=== PATIENT | female | born 1950 | race Hispanic/Latino ===

== ENCOUNTER 2023-12-27 16:16 | Inpatient (IN) | payer OTHER, MEDICAID, MEDICARE, SELFPAY ==
[2023-12-27] VITALS (8 sets, daily range): BP systolic 101–159; BP diastolic 54–76; PULSE 68–88; RESP 16–22; TEMP 37–39.4; O2SAT 93–98
--- NOTE | 2023-12-27 16:59 | EKG_ITS ---
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: : 1950 Requested By: Gloria Cole ([facility]) Marques Order Number: [id number] Reading MD: Gloria Cole ([facility]) Marques Measurements Intervals [place] Rate: 79 P: 50 GA: 160 QRS: -56 QRSD: 109 T: -31 QT: 389 QTc: 448 Interpretive Statements SINUS RHYTHM POSSIBLE LEFT ATRIAL ENLARGEMENT [-0.1mV P WAVE IN V1/V2] PATTERN CONSISTENT WITH PULMONARY DISEASE INCOMPLETE RIGHT BUNDLE BRANCH BLOCK [90+ ms QRS DURATION, TERMINAL R IN V1/V2, 40+ ms S IN I/aVL/V4/V5/V6] LEFT ANTERIOR FASCICULAR BLOCK [QRS AXIS <= -45, QR IN I, RS IN II] MINIMAL ST DEPRESSION [0.025+ mV ST DEPRESSION] Compared to ECG 04/13/2023 18:55:05 Incomplete right bundle-branch block now present ST (T wave) deviation now present Sinus tachycardia no longer present T-wave abnormality no longer present /store/S0/[id number]/ecg/[id number].pdf
--- NOTE | 2023-12-27 16:59 | XR_ITS ---
Examination: AP chest single view Technique: AP portable sitting chest single view Exam date and time: December 27, 2023 1730 hrs. Indications: Sepsis today. Findings: Mild heart failure Moderate enlargement cardiac contour Prominent vascular congestion Subtle opacity at the lung bases consider early edema versus pneumonia Impression: Mild heart failure Subtle opacity at the lung bases, consider pulmonary edema versus early pneumonia
--- NOTE | 2023-12-27 17:02 | PD.EDRME ---
Rapid Medical Screening Exam RME Arrival date/time: 12/27/23 16:16 73-year-old female presents to the emergency department with complaints of altered mental status for 1 hour fever. I have greeted and performed a focused initial assessment of this patient. Initial appropriate labs ordered at this time. A comprehensive ED assessment and evaluation of the patient and analysis of all test and completion of medical decision making process will be conducted by additional ED provider. Chief Complaint: Neuro Symptoms/Deficit Time Seen by Provider: 12/27/23 16:44 Vital signs: Vital Signs Temperature 103.0 F H 12/27/23 16:52 Pulse Rate 80 12/27/23 16:52 Respiratory Rate 16 12/27/23 16:52 Blood Pressure 159/72 H 12/27/23 16:52 Pulse Oximetry (%) 93 L 12/27/23 16:52 Oxygen Delivery Method Room Air 12/27/23 16:52
[2023-12-27] MEDS: ACETAMINOPHEN 500 MG TABLET 1000 MG PO (17:10)
[2023-12-27 17:26] LABS: Lactate (Lactic Acid) 1.2 mMol/L (0.4-2.0)
[2023-12-27 17:29] LABS: Basophils % (Auto) 0 % (0-2.5); Eosinophils % (Auto) 0 % (0-10); Hematocrit 38.4 % (36.0-46.0); Hemoglobin 13.6 g/dL (12.0-16.0); Immature Granulocytes % (Auto) 1 % (0-0); Lymphocytes # (Auto) 0.8 Thou/mm3 (1.0-4.8); Lymphocytes % (Auto) 5 % (10-50); Mean Corpuscular HGB Conc 35.4 g/dl (31.0-37.0); Mean Corpuscular Hemoglobin 30.4 pg (25.0-35.0); Mean Corpuscular Volume 86 fL (80-100); Monocytes # (Auto) 1.7 Thou/mm3 (0.0-0.8); Monocytes % (Auto) 10 % (0-12); Neutrophils # (Auto) 13.4 Thou/mm3 (1.8-7.7); Neutrophils % (Auto) 84 % (37-80); Nucleated Red Blood Cell % 0 /100 WBC (0); Platelet Count 175 Thou/mm3 (140-440); RDW Standard Deviation 46.8 fL (36.4-46.3); Red Blood Count 4.47 Miln/mm3 (4.00-5.20)
[2023-12-27 18:20] LABS: B-Type Natriuretic Peptide 2395 pg/mL (0-100)
[2023-12-27 18:31] LABS: Alanine Aminotransferase 26 U/L (10-49); Albumin, Serum 4.4 gm/dL (3.4-4.8); Albumin/Globulin Ratio 1.3 (1.2-2.2); Alkaline Phosphatase 63 U/L (46-116); Anion Gap 9 (7-16); Aspartate Amino Transferase 68 U/L (0-34); BUN/Creatinine Ratio 23 Ratio (12-20); Bilirubin,Total 0.7 mg/dL (0.3-1.2); Blood Urea Nitrogen 62 mg/dL (9-23); Calcium 9.3 mg/dL (8.3-10.6); Calcium (Corrected) 9.3 mg/dL (8.5-10.1); Carbon Dioxide 22.2 mMol/L (20.0-31.0); Chloride 99 mMol/L (98-107); Creatinine (Component) 2.7 mg/dL (0.6-1.3); Globulin 3.4 gm/dL (2.3-3.5); Glucose 162 mg/dL (74-106); Lipase 28 U/L (12-53); Magnesium 2.2 mg/dL (1.6-2.6); Osmolality,Calculated 282 (275-295); Potassium 4.1 mMol/L (3.4-5.1); Procalcitonin 30.89 ng/ml (0.0-0.49); Sodium 130 mMol/L (136-145); Total Protein 7.8 gm/dL (5.7-8.2); eGFR 18 See Note
[2023-12-27 18:38] LABS: Troponin I 0.273 ng/mL (0.0-0.045)
[2023-12-27 18:40] LABS: Collection Type, Urine Clean Catch
[2023-12-27 18:47] LABS: INR 1.1 (0.9-1.3); Prothrombin Time 11.9 Seconds (9.0-12.2)
[2023-12-27 18:49] LABS: Bacteria,Urine 2+; Bilirubin,Urine Negative (Negative); Blood,Urine 2+ (Negative); Clarity,Urine Turbid (Clear/Hazy); Color,Urine Yellow (Lt Yel-Yel); Glucose, Urine 3+ (Negative); Hyaline Casts,Urine < 1 /hpf (0-1); Ketones,Urine Negative (Negative); Leukocyte Esterase,Urine Positive (Negative); Nitrite,Urine Negative (Negative); Protein,Urine 2+ (Neg - Trace); RBC,Urine 17 /hpf (0-3); Specific Gravity,Urine 1.015 (1.001-1.035); Squamous Epithelial Cell,Urine 1 /hpf (0-5); Urobilinogen,Urine Negative mg/dL (0.0-1.0); WBC,Urine 81 /hpf (0-5)
--- NOTE | 2023-12-27 19:52 | EDNOTE_ITS ---
ED Abdominal Pain RME/HPI General Chief Complaint: Neuro Symptoms/Deficit Stated complaint: ALTERED MENTAL STATUS Time seen by provider: 12/27/23 16:44 Arrival date/time: 12/27/23 16:16 Limitations: no limitations RME / HPI RME / HPI narrative: 12/27/23 16:16 73-year-old female presents to the emergency department with complaints of altered mental status for 1 hour fever. I have greeted and performed a focused initial assessment of this patient. Initial appropriate labs ordered at this time. A comprehensive ED assessment and evaluation of the patient and analysis of all test and completion of medical decision making process will be conducted by additional ED provider. DR. SERVIN MAIN ED EVALUATION: 73-year-old with past medical history significant for CVA, hypertension, diabetes and hyperlipidemia presents to the Emergency Department with complaint of generalized weakness when she was in the bathroom. She is complaining of dysuria x 1 day and subjective fever. The patient took Tylenol this morning for fever and it improved. Patient has no focal weakness or numbness. Related Data Home Medications ?Medication ?Instructions ?Recorded ?Confirmed clopidogrel 75 mg tablet 75 mg PO QDAY 04/13/23 12/27/23 empagliflozin 25 mg tablet 25 mg PO QDAY 04/13/23 12/27/23 (Jardiance) escitalopram oxalate 10 mg tablet 10 mg PO QDAY 04/13/23 12/27/23 hydroxyzine HCl 25 mg tablet 25 mg PO HS PRN Sleep 04/13/23 12/27/23 pravastatin 20 mg tablet 20 mg PO QDAY 04/13/23 12/27/23 sacubitril 24 mg-valsartan 26 mg 24 - 26 tab PO BID 06/01/23 12/27/23 tablet (Entresto) amlodipine 2.5 mg tablet 2.5 mg PO QDAY 12/27/23 12/27/23 carvedilol 25 mg tablet 25 mg PO BID 12/27/23 12/27/23 furosemide 80 mg tablet 80 mg PO QDAY 12/27/23 12/27/23 Allergies Allergy/AdvReac Type Severity Reaction Status Date / Time No Known Allergies Allergy Verified 05/31/23 16:02 Review of Systems Review of Systems Systems Reviewed: All systems reviewed, normal except as documented Narrative Review of Systems: GEN: + subjective fever, no chills, no weight loss EYES: No discharge, no visual changes, no pain HEENT: No ear pain, no congestion, no sore throat PULM: No shortness of breath, no cough, no congestion CV: No chest pain, no dyspnea on exertion, no palpitations GI: No nausea, no vomiting, no diarrhea, no pain, no constipation : No frequency, no urgency; + dysuria MUSC/SKEL: No joint pain, no back pain SKIN: No rash PSYCH: No hallucinations, no depression HEME/LYMPH: No easy bleeding or bruising tendencies NEURO: + generalized weakness, no headache Past Medical History Past Medical History CARDIAC: Positive Hypercholesterolemia and Hypertension RESPIRATORY: Positive Respiratory Disorders (family does not know name of issue) ENDOCRINE: Positive Diabetes Mellitus Type 2 Social History SMOKING STATUS: Never smoker SECOND HAND EXPOSURE: Yes SUBSTANCE USE: does not use ALCOHOL: Never ED Exam Narrative Physical exam: Patient sitting up in the bed. She is awake and talking in full sentences. General Limitations: Present no limitations General appearance: Present alert and cachectic; Absent lethargic or obtunded Head Head exam: Present atraumatic ENT ENT exam: Present normal exam, normal oropharynx and mucous membranes moist Neck Neck exam: Present other (No JVD) Chest Chest inspection: Present normal inspection and symmetric chest wall rise Respiratory Respiratory exam: Present other; Absent accessory muscle use Cardiovascular Cardiovascular exam: Present regular rate Abdominal Exam Abdominal exam: Present soft and normal bowel sounds Extremities Exam Extremities exam: Present normal inspection and full ROM Back Exam Back exam: Present normal inspection and full ROM Neurological Exam Neurological exam: Present alert, oriented X3, CN II-XII intact, normal gait, motor sensory deficit and other (No aphasia, no dysphagia, no facial droop) Psychiatric Psychiatric exam: Present normal affect and normal mood Skin Skin exam: Present warm, dry, intact and normal color Course Course Course Narrative: 1700: Sepsis alert initiated. Orders made at this time are congruent with ED Adult Sepsis Order List. Re-evaluation is to be completed. 1945: I saw the patient at this time, sepsis was called prior to my shift. 2009: Sepsis reassessment performed consisting of lab review, vitals, physical exam including auscultation of heart, lungs, and visual evaluation of capillary refills, mucosal membranes and extremities. Quality Measures none Orders Category Date Time Status Bedside Blood Glucose NOW Care 12/27/23 17:00 Active Bedside COVID-19 Antigen Test NOW Care 12/27/23 17:00 Completed Bedside COVID-19 Antigen Test NOW Care 12/27/23 20:10 Completed Bedside Influenza A&B Antigen Test NOW Care 12/27/23 17:00 Completed COVID-19 Screening Questionnaire NOW Care 12/27/23 20:07 Active Fiber Worker Q4H START 00 Care 12/27/23 17:00 Completed Decision to Admit X1 Care 12/27/23 20:07 Completed EKG (ED ONLY) *Do not use* NOW Care 12/27/23 16:59 Completed Insert IV NOW Care 12/27/23 17:00 Completed MRI Screening NOW Care 12/27/23 17:06 Completed Strict Intake and Output Routine Care 12/27/23 17:00 Ordered EKG (ED Only) Stat Exams 12/27/23 16:59 Draft XR chest 1V portable Stat Exams 12/27/23 16:59 Completed B-Type Natriuretic Peptide Stat Lab 12/27/23 17:14 Completed Blood Culture (Lab) Stat Lab 12/27/23 17:15 Results CBC Stat Lab 12/27/23 17:14 Completed COVID-19 Confirmatory PCR Stat Lab 12/27/23 20:24 Completed Comprehensive Metabolic Panel Stat Lab 12/27/23 17:14 Completed Lactate (Lactic Acid) Stat Lab 12/27/23 17:14 Completed Lipase Stat Lab 12/27/23 17:14 Completed Magnesium Stat Lab 12/27/23 17:14 Completed Procalcitonin Stat Lab 12/27/23 17:14 Completed Prothrombin Time with INR Stat Lab 12/27/23 17:14 Completed Troponin I Stat Lab 12/27/23 17:14 Completed Urinalysis Stat Lab 12/27/23 18:34 Completed Urine Culture Stat Lab 12/27/23 18:34 Received Acetaminophen Tab [Tylenol ES Tab] Med 12/27/23 17:00 Discontinued 1,000 mg PO X1 ONE Azithromycin Inj [Zithromax Inj] 500 mg Med 12/28/23 14:00 Discontinued Sodium Chloride 0.9% 250 ml [Ns] 250 ml IV QDAY@1400 Azithromycin Inj [Zithromax Inj] 500 mg Med 12/27/23 20:15 Discontinued Sodium Chloride 0.9% 250 ml [Ns] 250 ml IV X1 cefTRIAXone/D5w 1gm IV premix [Rocephin/D5w 1gm IV Med 12/27/23 20:03 Discontinued premix] 50 ml IV X1 Vital Signs Vital signs: Vital Signs Temperature 103.0 F H 12/27/23 16:52 Pulse Rate 80 12/27/23 16:52 Respiratory Rate 16 12/27/23 16:52 Blood Pressure 159/72 H 12/27/23 16:52 Pulse Oximetry (%) 93 L 12/27/23 16:52 Oxygen Delivery Method Room Air 12/27/23 16:52 Procedures -ED EKG Interpretation #1: Date of EK12/27/23 Time of EK:06 Rate: 79 Interpretation: Interpreted by me Additional EKG comment: Patient with incomplete right bundle branch block. Otherwise no ST elevations. Nonspecific ST-T wave 1 and aVL. QTc is 424. Impression nonspecific ST-T wave changes. Abdominal Pain MDM MDM Narrative MDM Narrative:: Hailey Bojorquez, am scribing for and in the presence of Dr. Servin. Patient data External records reviewed:: [facility] previous records (Last admission from 05/31/23 to 06/04/23 for shortness of breath, pleural effusion, ORA (acute kidney injury). ) Clinical information provided by:: family Social determinants that could affect healthcare access:: none Patient has the following chronic illnesses:: CVA, hypertension, diabetes and hyperlipidemia How is presenting disease/condition affected by chronic disease/condition?: exacerbated by Evaluation data The following diagnostics were reviewed and interpreted by me:: lab results, radiology exam(s) and EKG tracing(s) Lab and/or radiology exams considered but not ordered:: none Interpretation Summary: Patient has a elevated BMP and CHF on the x-ray. RADIOLOGY: Procedure(s): XR chest 1V portable Accession Number(s): [id number] cc: Walter Peck MD; REBEKAH EVANS Otilia M FNP~ Examination: AP chest single view Technique: AP portable sitting chest single view Exam date and time: December 27, 2023 1730 hrs. Indications: Sepsis today. Findings: Mild heart failure Moderate enlargement cardiac contour Prominent vascular congestion Subtle opacity at the lung bases consider early edema versus pneumonia Impression: Mild heart failure Subtle opacity at the lung bases, consider pulmonary edema versus early pneumonia Dictated By: Walter Peck MD Medications / Prescriptions Medications or Prescriptions considered but not ordered:: none Medication administrations:: Medication Administration History Acetaminophen (Acetaminophen 325 Mg Tablet) 650 mg PO Q6H PRN PRN Reason: Fever >101.5 Stop: 01/26/24 20:21 Last Admin: 12/28/23 21:11 Dose: 650 mg Documented By: Admin: 12/28/23 13:12 Dose: 650 mg Documented By: Admin: 12/28/23 04:10 Dose: 650 mg Documented By: Carvedilol (Carvedilol 12.5 Mg Tablet) 12.5 mg PO BIDWM [facility] Stop: 01/27/24 07:59 Last Admin: 12/28/23 16:49 Dose: 12.5 mg Documented By: Admin: 12/28/23 08:19 Dose: 12.5 mg Documented By: MGD Clopidogrel Bisulfate (Clopidogrel Bisulfate 75 Mg Tablet) 75 mg PO QDAY [facility] Stop: 01/27/24 08:59 Last Admin: 12/28/23 08:19 Dose: 75 mg Documented By: MGD Dextrose (Dextrose 50%-Water Inj 50 Ml Syringe) 25 ml IV Q15MIN PRN PRN Reason: BG 50-70 responsive npo pt Stop: 01/26/24 20:24 Dextrose (Dextrose 50%-Water Inj 50 Ml Syringe) 50 ml IV Q15MIN PRN PRN Reason: BG <50 OR BG <70 & pt unresponsive Stop: 01/26/24 20:24 Glucagon (Glucagon Inj 1 Mg Vial) 1 mg IM Q15MIN PRN PRN Reason: BG <70, and no IV access Heparin Sodium (Porcine) (Heparin Sod Inj 5000 Unit/Ml Vial) 5,000 unit SC Q8HR REED Stop: 01/10/24 21:59 Last Admin: 12/29/23 05:02 Dose: 5,000 unit Documented By: HERMES Co-signed By: JEREMÍAS Admin: 12/28/23 21:03 Dose: 5,000 unit Documented By: HERMES Co-signed By: WB Admin: 12/28/23 13:14 Dose: 5,000 unit Documented By: DEBBY Co-signed By: ER Admin: 12/28/23 05:14 Dose: 5,000 unit Documented By: ZENOBIA Co-signed By: LS Admin: 12/27/23 21:30 Dose: 5,000 unit Documented By: FLORA Co-signed By: SABAS Cefepime HCl 1 gm/ Sodium (Chloride) 50 mls @ 100 mls/hr IV DAILY REED Stop: 01/04/24 07:14 Last Admin: 12/28/23 07:48 Dose: 100 mls/hr Documented By: DEBBY Insulin Human Regular (Insulin Hum Regular 1 Unit/0.01 Ml (Per Unit)) 0 unit SC ACHS REED; Protocol Stop: 01/26/24 20:59 Last Admin: 12/28/23 21:04 Dose: 2 unit Documented By: HERMES Co-signed By: WB Admin: 12/28/23 16:51 Dose: 2 unit Documented By: DEBBY Co-signed By: VI Admin: 12/28/23 13:02 Dose: 1 unit Documented By: DEBBY Co-signed By: CHARMAINE Admin: 12/28/23 07:48 Dose: 1 unit Documented By: DEBBY Co-signed By: ER Admin: 12/27/23 21:28 Dose: 3 unit Documented By: FLORA Co-signed By: SABAS Pravastatin Sodium (Pravastatin Sodium 10 Mg Tablet) 10 mg PO HS REED Stop: 01/26/24 20:59 Last Admin: 12/28/23 21:03 Dose: 10 mg Documented By: Admin: 12/27/23 21:30 Dose: 10 mg Documented By: FLORA Discontinued Medications Acetaminophen (Acetaminophen 500 Mg Tablet) 1,000 mg PO X1 ONE Stop: 12/27/23 17:01 Last Admin: 12/27/23 17:10 Dose: 1,000 mg Documented By: ARMIDA Ceftriaxone Sodium/Dextrose (Rocephin/D5w 1gm Iv Premix) 50 mls @ 100 mls/hr IV X1 ONE Stop: 12/27/23 20:32 Last Infusion: 12/27/23 21:04 Dose: Infused Documented By: Admin: 12/27/23 20:33 Dose: 100 mls/hr Documented By: FLORA Azithromycin 500 mg/ Sodium (Chloride) 250 mls @ 250 mls/hr IV QDAY@1400 [facility] Stop: 01/03/24 13:59 Azithromycin 500 mg/ Sodium (Chloride) 250 mls @ 250 mls/hr IV X1 ONE Stop: 12/27/23 21:14 Last Infusion: 12/27/23 21:46 Dose: Infused Documented By: Admin: 12/27/23 20:44 Dose: 250 mls/hr Documented By: FLORA Sodium Chloride (Ns) 1,000 mls @ 50 mls/hr IV .Q20H [facility] Stop: 01/26/24 20:29 Last Admin: 12/27/23 20:45 Dose: 50 mls/hr Documented By: FLORA Ceftriaxone Sodium/Dextrose (Rocephin/D5w 1gm Iv Premix) 50 mls @ 100 mls/hr IV QDAY [facility] Stop: 01/04/24 08:59 Sodium Chloride (Ns) 500 mls @ 999 mls/hr IV .Q31M ONE Stop: 12/28/23 05:15 Last Admin: 12/28/23 04:50 Dose: 999 mls/hr Documented By: ZENOBIA see above Consultations Consultation(s) initiated? (list below): Yes Consultation #1 (Physician, Specialty, Details): Discussed test HPI, PMHx, lab, radiology results and/or management with hospitalist Dr. Morris. Patient has a elevated BMP and CHF on the x-ray. Will admit for further evaluation and management. Accepts patient for admission. Time: 20:15 Diagnosis Differential diagnosis abdominal pain: abdominal pain and other (sepsis, UTI) Most likely diagnosis given after review of the tests above:: CHF Sepsis Acute UTI Community acquired pneumonia Admission Indicated Admission indicated?: indicated Admission Request Was there a request for admission?: Yes Admission Attestation Admission request attestation: Discussed case with [] from Hospitalist service regarding admission. Discussed patients ED course, exam findings, labs, and radiology results. The Hospitalist [agrees,declines] to accept the patient for admission. Disposition Plan Disposition Plan: Admit Discharge Plan Plan Patient Disposition: Admit Acute Care w/in Hospital Patient condition on transfer: Stable Problem List Clinical Impression: Congestive heart failure, Sepsis, Acute UTI, Community acquired pneumonia
[2023-12-27] MEDS: cefTRIAXone/D5w 1gm IV premix 50 ML IV (20:33)
--- NOTE | 2023-12-27 20:40 | ESHP_ITS ---
Documentation for date of: 12/27/23 [facility] History of Present Illness History of present illness: Patient is a 73-year-old female, brought into the emergency department, due to complaints of confusion and generalized weakness for the past few hours, patient is accompanied by her daughter who stated that she has been more confused over the past 2 days and was found to have a fever today. The patient went to the restroom to urinate and family went in to check on her when she did not come out after an hour, patient was confused and answering yes to every question, as well as unable to get off the toilet seat by herself. At the time of evaluation the patient is alert and oriented, and states that she felt her thighs were weak that is why she could not get up. She does not have any memory of episode of confusion. Per daughter, the patient ambulates by herself and is alert and oriented at her baseline . The patient denied any dysuria, urinary retention, also denied urinary incontinence, but daughter noted that patient is wearing adult diapers recently. Patient denies any chest pain, shortness of breath or orthopnea, or excessive cough or phlegm production. Per daughter, patient says no to every question because she wants to not stay in the hospital, patient's current clinical condition was explained to her, recommended IV antibiotics for UTI and sepsis, patient verbalized understanding and was agreeable to hospital stay. Initial vitals in the ED showed Tmax 103F, pulse rate 80, RR respiratory rate 16, blood pressure 159/72, saturating 93% on room air. EKG showed incomplete RBBB, nonspecific ST-T wave changes in 1 aVL, sepsis alert was initiated in the ED, but IV fluids boluses were not given as patient has HFrEF ejection fraction 30-35% per previous echocardiogram, CBC showed leukocyt,osis, 16,000, CHEM panel showed worsening ORA, BUN 62, creatinine 2.7, EGFR 18, baseline creatinine seems to be around 1.9, mild troponin elevation 0.273, BNP 2395, procalcitonin 30.89, lactic acid 1.2 , urinalysis shows urine WBC 81, urine bacteria 2+, urine LE positive, chest x-ray showed mild heart failure and subtle opacity at lung bases consider pulmonary edema versus early pneumonia, started on IV antibiotics ceftriaxone, and azithromycin. Patient will be admitted to medical floor for further observation and management. Past Medical history: Cardiorenal syndrome CVA Primary hypertension Diabetes mellitus type 2 Hyperlipidemia Anxiety Insomnia Past surgical history: long time ago Allergies: Denies Social history: The patient lives in [place] with her son She used to smoke: 10 packs/year, she quit > 5 years ago Exam Vital Signs Temp Pulse Resp BP Pulse Ox O2 Del Method 99.7 F 70 22 H 148/76 H 95 Room Air 12/27/23 18:51 12/27/23 19:19 12/27/23 19:19 12/27/23 19:19 12/27/23 19:19 12/27/23 19:19 Narrative Exam General: AOx3, cooperative but forgetful. Skin: Intact, no cyanosis or edema noted. HEENT: Atraumatic/normocephalic, ANTOIN, neck supple. Heart: RRR, S1 and S2 without clicks or murmurs. Lungs: Basal crackles, currently asymptomatic on room air, saturating 93%. Abdomen: Soft, nontender. Bowel sounds present. Vascular: Peripheral pulses palpable. Neuro: No focal neurological deficits noted. Results: Labs 12/27/23 17:14 12/27/23 17:14 Labs: Short CBC 12/27/23 Range/Units 17:14 WBC 16.0 H (3.6-11.0) Thou/mm3 Hgb 13.6 (12.0-16.0) g/dL Hct 38.4 (36.0-46.0) % Plt Count 175 (140-440) Thou/mm3 BMP 12/27/23 17:14 Sodium 130 L Potassium 4.1 Chloride 99 Carbon Dioxide 22.2 BUN 62 H Creatinine 2.7 H Glucose 162 H Calcium 9.3 Cardiac Enzymes 12/27/23 Range/Units 17:14 Troponin I 0.273 H* (0.0-0.045) ng/mL Liver Function 12/27/23 Range/Units 17:14 Total Bilirubin 0.7 (0.3-1.2) mg/dL AST 68 H (0-34) U/L ALT 26 (10-49) U/L Alkaline Phosphatase 63 (46-116) U/L Albumin 4.4 (3.4-4.8) gm/dL Urine 12/27/23 Range/Units 18:34 Urine Color Yellow (Lt Yel-Yel) Urine Clarity Turbid A (Clear/Hazy) Urine pH 6.0 (5.0-7.0) Ur Specific Mccoy 1.015 (1.001-1.035) Urine Protein 2+ A (Neg - Trace) Urine Glucose (UA) 3+ A (Negative) Quality Measures Quality Measures VTE prophylaxis Advance care planning discussed with:: patient Medications Home Medications and Allergies Home Medications ?Medication ?Instructions ?Recorded ?Confirmed ?Type clopidogrel 75 mg tablet 75 mg PO QDAY 04/13/23 06/01/23 History empagliflozin 25 mg tablet 25 mg PO QDAY 04/13/23 06/01/23 History (Jardiance) escitalopram oxalate 10 mg tablet 10 mg PO QDAY 04/13/23 06/01/23 History hydroxyzine HCl 25 mg tablet 25 mg PO BID 04/13/23 06/01/23 History pravastatin 20 mg tablet 20 mg PO QDAY 04/13/23 06/01/23 History carvedilol 12.5 mg tablet 12.5 mg PO BID 06/01/23 06/01/23 History sacubitril 24 mg-valsartan 26 mg 24 - 26 tab PO BID 06/01/23 06/01/23 History tablet (Entresto) Allergies Allergy/AdvReac Type Severity Reaction Status Date / Time No Known Allergies Allergy Verified 05/31/23 16:02 Visit Medications Acetaminophen (Acetaminophen 325 Mg Tablet) 650 mg PO Q6H PRN PRN Reason: Fever >101.5 Stop: 01/26/24 20:21 Carvedilol (Carvedilol 12.5 Mg Tablet) 12.5 mg PO BIDWM [facility] Stop: 01/27/24 07:59 Clopidogrel Bisulfate (Clopidogrel Bisulfate 75 Mg Tablet) 75 mg PO QDAY [facility] Stop: 01/27/24 08:59 Dextrose (Dextrose 50%-Water Inj 50 Ml Syringe) 25 ml IV Q15MIN PRN PRN Reason: BG 50-70 responsive npo pt Stop: 01/26/24 20:24 Dextrose (Dextrose 50%-Water Inj 50 Ml Syringe) 50 ml IV Q15MIN PRN PRN Reason: BG <50 OR BG <70 & pt unresponsive Stop: 01/26/24 20:24 Glucagon (Glucagon Inj 1 Mg Vial) 1 mg IM Q15MIN PRN PRN Reason: BG <70, and no IV access Heparin Sodium (Porcine) (Heparin Sod Inj 5000 Unit/Ml Vial) 5,000 unit SC Q8HR REED Stop: 01/10/24 21:59 Azithromycin 500 mg/ Sodium (Chloride) 250 mls @ 250 mls/hr IV QDAY@1400 REED Stop: 01/03/24 13:59 Azithromycin 500 mg/ Sodium (Chloride) 250 mls @ 250 mls/hr IV X1 ONE Stop: 12/27/23 21:14 Sodium Chloride (Ns) 1,000 mls @ 50 mls/hr IV .Q20H REED Stop: 01/26/24 20:29 Ceftriaxone Sodium/Dextrose (Rocephin/D5w 1gm Iv Premix) 50 mls @ 100 mls/hr IV QDAY REED Stop: 01/04/24 08:59 Insulin Human Regular (Insulin Hum Regular 1 Unit/0.01 Ml (Per Unit)) 0 unit SC ACHS REED; Protocol Stop: 01/26/24 20:59 Pravastatin Sodium (Pravastatin Sodium 10 Mg Tablet) 10 mg PO HS REED Stop: 01/26/24 20:59 Discontinued Medications Acetaminophen (Acetaminophen 500 Mg Tablet) 1,000 mg PO X1 ONE Stop: 12/27/23 17:01 Last Admin: 12/27/23 17:10 Dose: 1,000 mg Ceftriaxone Sodium/Dextrose (Rocephin/D5w 1gm Iv Premix) 50 mls @ 100 mls/hr IV X1 ONE Stop: 12/27/23 20:32 Last Admin: 12/27/23 20:33 Dose: 100 mls/hr Assessment & Plan Plan Brought into the emergency department, due to complaints of confusion and generalized weakness for the past few hours, patient is accompanied by her daughter who stated that she has been more confused over the past 2 days and was found to have a fever today. The patient went to the restroom to urinate and family went in to check on her when she did not come out after an hour, patient was confused and answering yes to every question, as well as unable to get off the toilet seat by herself. At the time of evaluation the patient is alert and oriented, and states that she felt her thighs were weak that is why she could not get up. She does not have any memory of episode of confusion. Per daughter, the patient ambulates by herself and is alert and oriented at her baseline . The patient denied any dysuria, urinary retention, also denied urinary incontinence, but daughter noted that patient is wearing adult diapers recently. Patient denies any chest pain, shortness of breath or orthopnea, or excessive cough or phlegm production. Per daughter, patient says no to every question because she wants to not stay in the hospital, patient's current clinical condition was explained to her, recommended IV antibiotics for UTI and sepsis, patient verbalized understanding and was agreeable to hospital stay. Initial vitals in the ED showed Tmax 103F, pulse rate 80, RR respiratory rate 16, blood pressure 159/72, saturating 93% on room air. EKG showed incomplete RBBB, nonspecific ST-T wave changes in 1 aVL, sepsis alert was initiated in the ED, but IV fluids boluses were not given as patient has HFrEF ejection fraction 30-35% per previous echocardiogram, CBC showed leukocyt,osis, 16,000, CHEM panel showed worsening ORA, BUN 62, creatinine 2.7, EGFR 18, baseline creatinine seems to be around 1.9, mild troponin elevation 0.273, BNP 2395, procalcitonin 30.89, lactic acid 1.2 , urinalysis shows urine WBC 81, urine bacteria 2+, urine LE positive, chest x-ray showed mild heart failure and subtle opacity at lung bases consider pulmonary edema versus early pneumonia, started on IV antibiotics ceftriaxone, and azithromycin. Patient will be admitted to medical floor for further observation and management. #Sepsis secondary to UTI and possible pneumonia Sepsis alert was initiated in the ED, but IV fluids boluses were not given as patient has HFrEF ejection fraction 30-35% per previous echocardiogram, CBC showed leukocyt,osis, 16,000, CHEM panel showed worsening ORA, BUN 62, creatinine 2.7, EGFR 18, baseline creatinine seems to be around 1.9, mild troponin elevation 0.273, BNP 2395, procalcitonin 30.89, lactic acid 1.2 , urinalysis shows urine WBC 81, urine bacteria 2+, urine LE positive, chest x-ray showed mild heart failure and subtle opacity at lung bases consider pulmonary edema versus early pneumonia. ? IV ceftriaxone 1 daily started 12/27/2023- ? IV azithromycin 5 mg daily started 01/08/2024- ? Follow urine cultures and Gram stain ? Blood cultures and Gram stain ? IV fluid boluses withheld due to history of HFrEF #Acute toxic encephalopathy Acute toxic encephalopathy possibly due to sepsis secondary to underlying UTI and pneumonia, also possible pharmacy induced constipation takes hydroxyzine, but altered mental status is more acute in onset, ? Hold home medication hydroxyzine due to encephalopathy ? Treat underlying infection with IV antibiotics, see above for details ? CT scan without contrast ordered to rule out stroke, as patient is complaining of weakness in her thighs and altered mental status #ORA on CKD Patient has a history of cardiorenal syndrome and CKD, baseline creatinine seems to be around 1.9, on presentation BUN 62, creatinine 2.7 EGFR 18. Cardiorenal syndrome less likely as patient does not seem to be in acute CHF on physical examination, we will reorder echocardiogram to see if reduced EF leading to ORA. Patient was able to provide a urine sample, unlikely obstruction, but history is concerning for urinary incontinence. ? Nephrology consult ? Will hold Entresto due to concern for ORA ? Strict I's and O's ? Bladder scan ordered to rule out urinary obstruction #History of HFrEF Previous echocardiogram showed EF 30 to 35%, followed by client service associate Dr. Sommers, patient does not seem to be in overt fluid overload, though chest x- ray did show possible pulmonary edema. ? Continue carvedilol at low-dose 12.5 mg p.o. twice daily, patient takes carvedilol 25 mg twice daily at home. ? Continue clopidogrel ? Hold Entresto due to ORA ? Continue statin ? Echocardiogram ordered to rule out acute drop in EF #History of diabetes mellitus ? A1c ordered ? insulin regular sliding scale insulin Disposition: Inpatient admit DVT prophylaxis: Heparin subcut GI prophylaxis: None Diet: Cardiac and renal Lines: PIV CODE STATUS: Full The plan of care was discussed with my attending physician MD Kumar Quintana MD PGY1 This document was completed utilizing speech recognition software. Grammatical errors, random word insertions, pronoun errors, and incomplete sentences are an occasional consequence of this system due to software limitations, ambient noise, and hardware issues. Any formal questions or concerns about the content, text or information contained within the body of this dictation should be directly addressed to the provider for clarification. Attending Provider Attestation/Addendum Pt was evaluated and plan formulated together with the housestaff team. I have reviewed the residents note above and agree with most of its content. Please refer to the residents note for additional details. Sepsis protocol. Based on her EF and BNP, will lower the IV fluid volume. Follow blood culture.
[2023-12-27] MEDS: AZITHROMYCIN INJ 500 MG in SODIUM CHLORIDE 0.9% 250 ML 250 ML 250 MG IV (20:44)
[2023-12-27] MEDS: SODIUM CHLORIDE 0.9% 1000 ML 1,000 ML 50 ML IV (20:45)
--- NOTE | 2023-12-27 21:13 | ECHO_ITS ---
Transthoracic Echo Report Ht (in): 66 Wt (lb): 156 Exam Location: [facility] Status: Inpatient Steamfitter: Maday Orellana Indications: Procedure Performed: BP: 140 / 70 HR: 66 Rhythm: Sinus Technical Quality: Fair MEASUREMENTS (Male / Female) Normal Values 2D ECHO LV Diastolic Diameter PLAX 5.3 cm 4.2 - 5.9 / 3.9 - 5.3 cm LV Systolic Diameter PLAX 4.3 cm IVS Diastolic Thickness 1.0 cm 0.6 - 1.0 / 0.6 - 0.9 cm LVPW Diastolic Thickness 1.1 cm 0.6 - 1.0 / 0.6 - 0.9 cm LV Relative Wall Thickness 0.4 LVOT Diameter 1.8 cm LA Volume Index 40.2 cm?/m? 16 - 28 cm?/m? Ascending Aorta Diameter 3.9 cm M-MODE Aortic Root Diameter MM 4.0 cm LA Systolic Diameter MM 3.8 cm LA Ao Ratio MM 0.9 MV E Point Septal Separation 1.0 cm AV Cusp Separation MM 1.8 cm DOPPLER AV Peak Velocity 207.0 cm/s AV Peak Gradient 17.1 mmHg AV Mean Gradient 11.0 mmHg AV Velocity Time Integral 40.0 cm AI Peak Velocity 386.5 cm/s AI Peak Gradient 59.8 mmHg AI Pressure Half Time 351.5 ms LVOT Peak Velocity 120.0 cm/s LVOT Peak Gradient 5.8 mmHg LVOT Velocity Time Integral 23.8 cm LVOT Cardiac Index 2188.9 cm?/min?m? AV Area Cont Eq vti 1.5 cm? AV Area Cont Eq pk 1.5 cm? MV Peak Velocity 165.0 cm/s MV Peak Gradient 10.9 mmHg MV Mean Velocity 90.3 cm/s MV Mean Gradient 4.0 mmHg MV Area PHT 2.9 cm? MR Peak Velocity 531.0 cm/s MR Peak Gradient 112.8 mmHg Mitral E Point Velocity 149.0 cm/s Mitral A Point Velocity 91.3 cm/s Mitral E to A Ratio 1.6 LV E' Lateral Velocity 4.0 cm/s Mitral E to LV E' Lateral Ratio 37.0 LV E' Septal Velocity 4.8 cm/s Mitral E to LV E' Septal Ratio 31.1 TR Peak Velocity 310.3 cm/s TR Peak Gradient 38.5 mmHg FINDINGS Left Ventricle Normal left ventricular size. Mild systolic dysfunction. Mild global hypokinesis. Mild LVH. The eje ction fraction is visually estimated at 40-45%. Right Ventricle The right ventricle is mildly dilated. Normal systolic The estimated right ventricular systolic pre ssure, 57mmHg. RAP 15. Left Atrium The left atrium is normal by two-dimensional, color flow and Doppler imaging with no structural abnormalities, no thrombus formation present. Right Atrium The right atrium is mildly dilated. Atrial Septum The interatrial septum appears normal with no evidence of a shunt. Aorta The aortic root is mildly dilated 4.0cm. The acending aorta mildly dilated, 3.8cm. Mitral Valve Mild thickening of the mitral valve leaflets. There is moderate mitral valve regurgitation. Aortic Valve The aortic valve is trileaflet and normal by two-dimensional, color flow and Doppler interrogation. There is moderate aortic valve regurgitation. Tricuspid Valve The tricuspid valve is normal by two-dimensional, color flow and Doppler interrogation. There is mod erate tricuspid valve regurgitation. Pulmonic Valve There is mild pulmonic valve regurgitation. Vessels The pulmonary artery appears normal. The inferior vena cava pulmonary and hepatic veins appear unruly l. Pericardium The pericardium is normal by two-dimensional imaging. There is no significant pericardial effusion. CONCLUSIONS Indication: R/O acute CHF Normal LV size. Mild systolic dysfunction. Mild global hypokinesis. Mild LVH. Stage II diastolic dysfunction. Estimated EF 40-45% Mild RV dilatation. Normal RV systolic function. Estimated RVSP 57mmHg. Moderate PH. RA mildly dilated. Mild thickening of the mitral valve leaflets. The aortic root is mildly dilated 4.0cm. The acending aorta mildly dilated, 3.8cm. Moderate MR & TR. Mild to moderate AI. Mild PI. - EF improved compaired to previous echo which was 30-35% on 08-18-2022. Dylan Wallace (Electronically Signed) Final Date: 28 December 2023 16:38
--- NOTE | 2023-12-27 21:16 | XR_ITS ---
Examination: CT brain head without contrast. 2-D sagittal coronal reconstructions Date and time of exam:December 27, 2023 1037 hrs. Indications: Onset altered mental status today CTDI: vol (mGy):49.11 DLP: (mGycm):177 Technique: Multiple CT axial sections of the brain have been obtained, 5 mm slice thickness. Contrast has not been administered. 2-D sagittal, coronal reconstructions have been obtained Low dose protocols were performed. One or more of the following dose reduction techniques were used; automated exposure control, adjustment of the mA and/or KV according to patient size, use of iterative reconstruction technique. Findings: No significant ventricular enlargement. Intra-axial or extra-axial hemorrhage density is not seen. No mass effect or midline shift Basal cisterns are not remarkable. Fourth ventricle is midline. Cranial vault intact. Large retention cysts right maxillary antrum Impression: Negative for acute hemorrhage, mass effect or midline shift Advise clinical correlation and follow-up accordingly
[2023-12-27] MEDS: INSULIN HUM REGULAR 1 UNIT/0.01 ML (PER UNIT) SC (21:28)
[2023-12-27] MEDS: HEPARIN SOD INJ 5000 UNIT/ML VIAL SC (21:30)
[2023-12-27] MEDS: PRAVASTATIN SODIUM 10 MG TABLET PO (21:30)
[2023-12-27 22:05] LABS: Glucose Estimated Average 131 mg/dL (80-131); Hemoglobin A1C 6.2 % Hgb (4.8-6.0)
[2023-12-28] VITALS (15 sets, daily range): BP systolic 123–150; BP diastolic 68–82; PULSE 63–82; RESP 17–35; TEMP 36.9–39; O2SAT 95–97; BMI 30.4
[2023-12-28 03:18] LABS: COVID-19 Confirmatory PCR Negative (Neg)
[2023-12-28] MEDS: ACETAMINOPHEN 325 MG TABLET 650 MG PO ×3 (04:10→21:11)
[2023-12-28] MEDS: SODIUM CHLORIDE 0.9% 500 ML 500 ML 999 ML IV (04:50)
[2023-12-28] MEDS: HEPARIN SOD INJ 5000 UNIT/ML VIAL SC ×3 (05:14→21:03)
--- NOTE | 2023-12-28 05:34 | PC.NURSE ---
Addendum entered by Valdo Barger RN 12/28/23 05:37: Pt temperature 102.2F and RR of 35 @04:00. MD MCKAY and MD SPANN made aware of temperature and respiratory rate. Tylenol given @04:10. Asked MD WHITE and MD SPANN to assess pt, and they came to the bedside and assessed the pt. New fluid order received. Temperature rechecked @05:10 and resulted as 98.6F. Respiratory rate improved and decreased to 17. Original Note: Pt temperature 102.2F and RR of 35 @04:00. MD MCKAY and MD SPANN made aware of temperature and respiratory rate. Tylenol given @04:10. MD WHITE and MD SPANN came to the bedside and assessed the pt. New fluid order received. Temperature rechecked @05:10 and resulted as 98.6F.
[2023-12-28 05:59] LABS: Basophils % (Auto) 0 % (0-2.5); Eosinophils % (Auto) 0 % (0-10); Hematocrit 33.6 % (36.0-46.0); Hemoglobin 11.8 g/dL (12.0-16.0); Immature Granulocytes % (Auto) 1 % (0-0); Immature Granulocytes Auto 0.08 Thou/mm3 (0.00-0.00); Lymphocytes # (Auto) 0.9 Thou/mm3 (1.0-4.8); Lymphocytes % (Auto) 6 % (10-50); Mean Corpuscular HGB Conc 35.1 g/dl (31.0-37.0); Mean Corpuscular Hemoglobin 30.6 pg (25.0-35.0); Mean Corpuscular Volume 87 fL (80-100); Monocytes # (Auto) 1.6 Thou/mm3 (0.0-0.8); Monocytes % (Auto) 10 % (0-12); Neutrophils # (Auto) 13.6 Thou/mm3 (1.8-7.7); Neutrophils % (Auto) 84 % (37-80); Nucleated Red Blood Cell % 0 /100 WBC (0); Platelet Count 158 Thou/mm3 (140-440); RDW Standard Deviation 47.8 fL (36.4-46.3); Red Blood Count 3.85 Miln/mm3 (4.00-5.20); White Blood Count 16.2 Thou/mm3 (3.6-11.0)
[2023-12-28 06:36] LABS: Anion Gap 10 (7-16); BUN/Creatinine Ratio 23 Ratio (12-20); Blood Urea Nitrogen 65 mg/dL (9-23); Calcium 8.4 mg/dL (8.3-10.6); Carbon Dioxide 21.7 mMol/L (20.0-31.0); Chloride 100 mMol/L (98-107); Creatinine (Component) 2.8 mg/dL (0.6-1.3); Estimated Creatinine Clearance 18.2 mL/min (>60); Glucose 176 mg/dL (74-106); Osmolality,Calculated 287 (275-295); Potassium 3.5 mMol/L (3.4-5.1); Sodium 132 mMol/L (136-145); eGFR 18 See Note
[2023-12-28] MEDS: CEFEPIME INJ 1 GM in SODIUM CHLORIDE 0.9% (P) 50 ML IV (07:48)
[2023-12-28] MEDS: INSULIN HUM REGULAR 1 UNIT/0.01 ML (PER UNIT) SC ×4 (07:48→21:04)
[2023-12-28] MEDS: carVEDILOL 12.5 MG TABLET PO ×2 (08:19→16:49)
[2023-12-28] MEDS: CLOPIDOGREL BISULFATE 75 MG TABLET PO (08:19)
--- NOTE | 2023-12-28 10:51 | XR_ITS ---
Examination: Retroperitoneal ultrasound, complete Technique: Multiple high resolution grayscale images of the retroperitoneum obtained, including kidneys and bladder. Exam date and time:December 28, 2023 1153 hours INDICATIONS: Sepsis acute renal insufficiency beginning yesterday FINDINGS: Right kidney 7.6 x 3.1 x 4.5 cm renal cortex 0.7 cm Multiple calcifications, the largest 4 mm Left kidney 11.3 x 4.5 x 1.1 cm renal cortex 1.1 cm Multiple calculi, the largest 3 mm Moderate right mild left renal parenchymal scar formation No hydronephrosis No bladder mass or bladder calculi Bladder prevoid volume 523 cc postvoid 0 cc IMPRESSION: Small right kidney Bilateral renal cortical thinning Moderate right mild left renal parenchymal scar formation Bilateral nonobstructing renal calculi
--- NOTE | 2023-12-28 10:53 | XR_ITS ---
Examination: Abdomen sonogram, Limited Date and time of exam: December 28, 2023 1138 hours INDICATIONS: IVC volume assessment today Technique: Real-time lind scale transabdominal sonographic images of the upper abdomen obtained. Findings: Gallbladder wall is thickened 0.6 cm no edema No gallstones Common bile duct 0.3 cm Pancreatic head 2.3 cm Liver 16.4 cm smooth contour no focal liver lesions Normal hepatopedal portal venous flow Patent IVC which measures 1.55 cm in dimension IMPRESSION: Gallbladder wall thickened 0.6 cm, consider HIDA scan follow-up Patent IVC, which measures 1.55 cm in dimension
--- NOTE | 2023-12-28 11:24 | ESCONSULT_ITS ---
12/27/23 12/28/23 17:14 05:30 Sodium 130 L 132 L Potassium 4.1 3.5 D Chloride 99 100 Carbon Dioxide 22.2 21.7 BUN 62 H 65 H Creatinine 2.7 H 2.8 H Glucose 162 H 176 H Calcium 9.3 8.4 Cardiac Enzymes 12/27/23 12/28/23 Range/Units 17:14 05:30 Troponin I 0.273 H* 0.200 H* (0.0-0.045) ng/mL Liver Function 12/27/23 Range/Units 17:14 Total Bilirubin 0.7 (0.3-1.2) mg/dL AST 68 H (0-34) U/L ALT 26 (10-49) U/L Alkaline Phosphatase 63 (46-116) U/L Albumin 4.4 (3.4-4.8) gm/dL Urine 12/27/23 Range/Units 18:34 Urine Color Yellow (Lt Yel-Yel) Urine Clarity Turbid A (Clear/Hazy) Urine pH 6.0 (5.0-7.0) Ur Specific [place] 1.015 (1.001-1.035) Urine Protein 2+ A (Neg - Trace) Urine Glucose (UA) 3+ A (Negative) Assessment & Plan Assessment and plan (1) ORA (acute kidney injury): Status: Acute Assessment and plan: ORA secondary to prerenal azotemia. Patient has decreased p.o. intake, on Entresto, high doses of Lasix along with Jardiance. Hold all the medications for now. Gentle IV fluids recommended. CT abdomen showed no hydronephrosis. Urine sodium less than 10. Despite BNP elevated-clinically looks dehydrated. (2) Acute UTI: Status: Acute Assessment and plan: On broad-spectrum antibiotics (3) Community acquired pneumonia: Status: Acute Assessment and plan: On antibiotics (4) Sepsis: Status: Acute Assessment and plan: Pending cultures-IV fluids, IV antibiotics (5) Hypertension: Status: Acute Assessment and plan: Blood pressure seems to be stable. Hold off on Entresto, Lasix (6) Congestive heart failure: Status: Acute Assessment and plan: Despite BNP elevated, patient clinically looks dehydrated. Gentle IV fluids. Additional Assessment & Plan Additional Plan: Thank you Dr. Wang for allowing me to participate in the care of Ms. Echols History of Present Illness Data of Consult Consult date: 12/28/23 Requesting Physician: Gurvinder Morris MD Primary Care Provider: Collins Bender Consult Narrative Reason for consult: ORA, hyponatremia History of present illness: Ms. Echols is a 73-year-old lady with history of hypertension, dyslipidemia, congestive heart failure, chronic kidney disease stage IIIb, history of stroke, anxiety was brought to the emergency department by her daughter with confusion fever and a significant weakness in the lower extremities. In the ER patient was noted to have UTI and sepsis and admitted to telemetry. Patient is a poor historian and chart review done. No family around. In the emergency department-Tmax 103, heart rate 80, blood pressure 159/72. EKG showed right bundle branch block. Patient under the care of Dr. Thuan Murrieta. Last ejection fraction 30 to 35%. WBC 16, BUN 62, creatinine 2.7 with a GFR of 18. (Last month her creatinine was 1.9), BNP 2395, Pro-Billy 30.8, lactic acid 1.2, urinalysis shows significant pyuria. Chest x-ray questionable pneumonia in the lung base. Patient was started on ceftriaxone, azithromycin and admitted to telemetry. Renal consultation requested in view of acute renal failure. Home medications included Jardiance, pravastatin, hydroxyzine, Lasix 80 mg p.o. daily, Lexapro, Entresto, amlodipine, carvedilol, Plavix. cc:: cc: Gurvinder Morris MD Review of Systems Review of Systems Narrative Review of Systems: Limited due to her mental status. Patient still seems to be slow in responding. Denies any fever or chills. Denies any abdominal pain. Past Medical History Past Medical History CARDIAC: Positive Hypercholesterolemia and Hypertension; Negative Congestive Heart Failure RESPIRATORY: Positive Respiratory Disorders; Negative Chronic Obstructive Pulmonary Disease (COPD) GENITOURINARY: Negative Renal Disease ENDOCRINE: Positive Diabetes Mellitus Type 2; Negative Diabetes Mellitus Type 1 Social History SMOKING STATUS: Former smoker SECOND HAND EXPOSURE: Yes SUBSTANCE USE: does not use Meds Home Medications and Allergies Home Medications ?Medication ?Instructions ?Recorded ?Confirmed ?Type clopidogrel 75 mg tablet 75 mg PO QDAY 04/13/23 12/27/23 History empagliflozin 25 mg tablet 25 mg PO QDAY 04/13/23 12/27/23 History (Jardiance) escitalopram oxalate 10 mg tablet 10 mg PO QDAY 04/13/23 12/27/23 History hydroxyzine HCl 25 mg tablet 25 mg PO HS PRN Sleep 04/13/23 12/27/23 History pravastatin 20 mg tablet 20 mg PO QDAY 04/13/23 12/27/23 History sacubitril 24 mg-valsartan 26 mg 24 - 26 tab PO BID 06/01/23 12/27/23 History tablet (Entresto) amlodipine 2.5 mg tablet 2.5 mg PO QDAY 12/27/23 12/27/23 History carvedilol 25 mg tablet 25 mg PO BID 12/27/23 12/27/23 History furosemide 80 mg tablet 80 mg PO QDAY 12/27/23 12/27/23 History Allergies Allergy/AdvReac Type Severity Reaction Status Date / Time No Known Allergies Allergy Verified 05/31/23 16:02 Exam Vital Signs Temp Pulse Resp BP Pulse Ox O2 Del Method O2 Flow Rate 36.9 C 66 21 H 142/70 H 96 Nasal Cannula 2 12/28/23 08:00 12/28/23 08:19 12/28/23 08:00 12/28/23 08:19 12/28/23 08:00 12/28/23 08:00 12/28/23 08:00 Narrative Exam GENERAL APPEARANCE: Patient seems to be comfortable, adequately hydrated and nourished. Patient currently seen in telemetry. HEENT: EOMI, PERRLA NECK: Neck supple, no JVD or bruit CARDIOVASCULAR: Heart regular, no murmurs LUNGS/CHEST: Chest clear to auscultation. No rales, rhonchi, wheezing ABDOMEN: Soft, nontender, nondistended. No masses. Normal bowel sounds. EXTREMITIES: No edema, clubbing or cyanosis. SKIN: Skin exam normal without any rashes MUSCULOSKELETAL: In bed NEUROLOGICAL : able to move her extremities, seems to have some memory lapses Results Labs 12/29/23 05:18 12/29/23 05:18 Labs: Short CBC 12/27/23 12/28/23 Range/Units 17:14 05:30 WBC 16.0 H 16.2 H (3.6-11.0) Thou/mm3 Hgb 13.6 11.8 L (12.0-16.0) g/dL Hct 38.4 33.6 L (36.0-46.0) % Plt Count 175 158 (140-440) Thou/mm3 BMP
[2023-12-28 12:11] LABS: Chloride,Urine Random < 20.0 mMol/L (55.0-125.0); Creatinine,Random Urine 57 mg/dL (30-125); Potassium,Urine Random 30 mMol/L (12-62); Sodium,Urine Random < 15.0 mMol/L (20.0-110.0)
--- NOTE | 2023-12-28 14:23 | PC.SS ---
Update: Patient to receive Echo today.
--- NOTE | 2023-12-28 15:06 | PC.SS ---
TISSUE COORDINATOR conducted bedside with the patient to conduct initial assessment and to discuss discharge planning. Patient is [place] speaking. Patient?s daughter, Zohra Simons; present at the patient?s bedside. Patient?s daughter provided information for assessment and discharge planning. Patient resides at home with son. Patient?s [address] [facility] [address] [address] Patient utilizes a walker to assist with ambulation. Patient utilizes home oxygen. Patient requires assistance with the completion of ADL?s. Family provides assistance with ADL?s and provide transportation on behalf of the patient. Patient?s medical surrogate decision maker is daughter, Kinza Choelory . Patient?s PCP is Martín Mcdermottano. Patient possesses mold builder in [place], daughter could not recall name of mold builder. Patient is diabetic. Patient does not participate with dialysis. [facility]. Discharge plan is for the patient to return home at the time of discharge. Family will provide transportation on behalf of the patient. Following form of DME requested: wheelchair. No preferred provider identified. No further intervention required at this time, social media marketer will be available to address any further concerns. Next of Kin: Kinza Momin D/C Plan: Home
--- NOTE | 2023-12-28 16:52 | ESPR_ITS ---
<Statement entered by Robert Wang MD - 12/29/23 14:43> I have discussed and was present for the essential components of the history, physical examination, diagnosis, and treatment plan with the resident. I agree with the patient's care as documented by the resident and amended herein by me. Robert Wang MD FACP. <Statement entered by Jolynn Huang MD - 12/29/23 05:39> I discussed with and supervised the internal audit senior manager physician who took care of this patient. I personally saw and examined the patient and discussed the assessment and plan with the entire medicine team, including my attending Dr. Wang, I agree with the assessment and plan as documented below Patient seen and examined at bedside today. Labs and imaging reviewed. No overnight acute events, this morning at bedside patient stated to be feeling well, denied chest pain, palpitations, dysuria or any other associated symptoms different as mentioned above, creatinine 2.8 uptrending, blood cultures preliminary 24 hours show gram-negative rods pending final results, urine urea showed ATN, pending renal ultrasound, nephrology is following up the case with with the patient recommendations, will continue IV cefepime. Disclaimer: Despite multiple revisions, due to the dictation software being used, the document bellow may not be free of grammatical errors including phonetic/typographic errors. However, this does not deter from our commitment to providing health care in the patient's best interest in mind. Jolynn Huang MD PGY-2 Documentation for date of: 12/28/23 Subjective Subjective Interval history: Summary: A 73-year-old female patient was brought to the emergency department due to altered mental status and generalized weakness for few hours before admission. Patient was admitted for sepsis secondary to UTI. 12/28/2023, patient was seen and examined at bedside. Patient was oriented x 3. She reported fever when she came to the hospital however at this time she does not have any fever. Surprisingly she denied any urinary tract symptoms. Her blood pressure was 150/82, pulse rate 82, saturating 95 on 4 L of oxygen. Her hemoglobin is 10 WBC 11, potassium was found to be 3.5, her serum creatinine found to be 2.8 while her baseline is 1.9. Exam Vital Signs Temp Pulse Resp BP Pulse Ox O2 Del Method O2 Flow Rate 101.3 F H 64 23 H 145/70 H 97 Nasal Cannula 2 12/28/23 14:12 12/28/23 12:00 12/28/23 12:00 12/28/23 12:00 12/28/23 12:00 12/28/23 12:00 12/28/23 12:00 Narrative Exam GEN: AOx3, able to speak full sentences HEENT: NC/AC, oral mucosa moist, neck supple CVS: RRR, Soft Systolic murmur, appreciated RESP: CTAB GI: soft, non distended, non tender, NBS MSK: full ROM, no lower extremity edema SKIN: warm and dry HAND MITER OPERATOR: CN II-XII intact. Sensation grossly intact. Objective Labs 12/28/23 05:30 12/28/23 05:30 Labs: Laboratory Results - last 24 hr 12/27/23 12/27/23 12/27/23 17:14 18:34 20:24 WBC 16.0 H RBC 4.47 Hgb 13.6 Hct 38.4 MCV 86 MCH 30.4 MCHC 35.4 RDW Std Deviation 46.8 H Plt Count 175 Neut % (Auto) 84 H Lymph % (Auto) 5 L [place] % (Auto) 10 Eos % (Auto) 0 Baso % (Auto) 0 Neut # (Auto) 13.4 H Lymph # (Auto) 0.8 L [place] # (Auto) 1.7 H Eos # (Auto) 0.0 Baso # (Auto) 0.0 Immature Gran # (Auto) 0.10 H Absolute Nucleated RBC 0.00 Immature Gran % 1 H Nucleated RBC % 0 PT 11.9 INR 1.1 Sodium 130 L Potassium 4.1 Chloride 99 Carbon Dioxide 22.2 Anion Gap 9 BUN 62 H Creatinine 2.7 H Estim Creat Clear Calc Not Performed. eGFR 18 L BUN/Creatinine Ratio 23 H Glucose [address] Glu mg/dL 131 Hemoglobin A1c 6.2 H Calculated Osmolality 282 Lactic Acid 1.2 Calcium 9.3 Corrected Calcium 9.3 Magnesium 2.2 Total Bilirubin 0.7 AST 68 H ALT 26 Alkaline Phosphatase 63 Troponin I 0.273 H* B-Natriuretic Peptide 2395 H* Total Protein 7.8 Albumin 4.4 Globulin 3.4 Albumin/Globulin Ratio 1.3 Lipase 28 Procalcitonin 30.89 H Ur Collection Type Clean Catch Urine Color Yellow Urine Clarity Turbid A Urine pH 6.0 Ur Specific [place] 1.015 Urine Protein 2+ A Urine Glucose (UA) 3+ A Urine Ketones Negative Urine Blood 2+ A Urine Nitrite Negative Urine Bilirubin Negative Urine Urobilinogen (Auto) Negative Ur Leukocyte Esterase Positive Urine RBC 17 H Urine WBC 81 H Ur Squamous Epith Cells 1 Urine Bacteria 2+ A Hyaline Casts < 1 Ur Random Creatinine Ur Random Sodium Ur Random Potassium Ur Random Chloride Ur Random Urea Nitrogn SARS-CoV-2 (PCR) Negative 12/28/23 12/28/23 05:30 11:30 WBC 16.2 H RBC 3.85 L Hgb 11.8 L Hct 33.6 L MCV 87 MCH 30.6 MCHC 35.1 RDW Std Deviation 47.8 H Plt Count 158 Neut % (Auto) 84 H Lymph % (Auto) 6 L [place] % (Auto) 10 Eos % (Auto) 0 Baso % (Auto) 0 Neut # (Auto) 13.6 H Lymph # (Auto) 0.9 L [place] # (Auto) 1.6 H Eos # (Auto) 0.0 Baso # (Auto) 0.0 Immature Gran # (Auto) 0.08 H Absolute Nucleated RBC 0.00 Immature Gran % 1 H Nucleated RBC % 0 PT INR Sodium 132 L Potassium 3.5 D Chloride 100 Carbon Dioxide 21.7 Anion Gap 10 BUN 65 H Creatinine 2.8 H Estim Creat Clear Calc 18.2 L eGFR 18 L BUN/Creatinine Ratio 23 H Glucose [address] Glu mg/dL Hemoglobin A1c Calculated Osmolality 287 Lactic Acid Calcium 8.4 Corrected Calcium Magnesium Total Bilirubin AST ALT Alkaline Phosphatase Troponin I 0.200 H* B-Natriuretic Peptide Total Protein Albumin Globulin Albumin/Globulin Ratio Lipase Procalcitonin Ur Collection Type Urine Color Urine Clarity Urine pH Ur Specific [place] Urine Protein Urine Glucose (UA) Urine Ketones Urine Blood Urine Nitrite Urine Bilirubin Urine Urobilinogen (Auto) Ur Leukocyte Esterase Urine RBC Urine WBC Ur Squamous Epith Cells Urine Bacteria Hyaline Casts Ur Random Creatinine 57 Ur Random Sodium < 15.0 L Ur Random Potassium 30 Ur Random Chloride < 20.0 L Ur Random Urea Nitrogn 494.0 SARS-CoV-2 (PCR) Quality Measures Quality Measures VTE prophylaxis Advance care planning discussed with:: patient Assessment & Plan Assessment Current Active Medications: Generic Name Dose Route Start Last Admin Trade Name Freq PRN Reason Stop Dose Admin Acetaminophen 650 mg 12/27/23 20:22 12/28/23 13:12 Acetaminophen 325 Mg Tablet PO 01/26/24 20:21 650 mg Q6H PRN Administration Fever >101.5 Carvedilol 12.5 mg 12/28/23 08:00 12/28/23 08:19 Carvedilol 12.5 Mg Tablet PO 01/27/24 07:59 12.5 mg BIDWM REED Administration Clopidogrel Bisulfate 75 mg 12/28/23 09:00 12/28/23 08:19 Clopidogrel Bisulfate 75 Mg Tablet PO 01/27/24 08:59 75 mg QDAY REED Administration Dextrose 25 ml 12/27/23 20:25 Dextrose 50%-Water Inj 50 Ml Syringe IV 01/26/24 20:24 Q15MIN PRN BG 50-70 responsive npo pt Dextrose 50 ml 12/27/23 20:25 Dextrose 50%-Water Inj 50 Ml Syringe IV 01/26/24 20:24 Q15MIN PRN BG <50 OR BG <70 & pt unresponsive Glucagon 1 mg 12/27/23 20:25 Glucagon Inj 1 Mg Vial IM Q15MIN PRN BG <70, and no IV access Heparin Sodium (Porcine) 5,000 unit 12/27/23 22:00 12/28/23 13:14 Heparin Sod Inj 5000 Unit/Ml Vial SC 01/10/24 21:59 5,000 unit Q8HR REED Administration Cefepime HCl 1 gm/ Sodium 50 mls @ 100 mls/hr 12/28/23 07:15 12/28/23 07:48 Chloride IV 01/04/24 07:14 100 mls/hr DAILY REED Administration Insulin Human Regular 0 unit 12/27/23 21:00 12/28/23 13:02 Insulin Hum Regular 1 Unit/0.01 Ml (Per Unit) SC 01/26/24 20:59 1 unit ACHS REED Administration Protocol Pravastatin Sodium 10 mg 12/27/23 21:00 12/27/23 21:30 Pravastatin Sodium 10 Mg Tablet PO 01/26/24 20:59 10 mg HS REED Administration Plan Summary: A 73-year-old female patient was brought to the emergency department due to altered mental status and generalized weakness for few hours before admission. Patient was admitted for sepsis secondary to UTI. Assessment and plans #Sepsis secondary to UTI and possible pneumonia #Bacteremia most likely secondary to UTI #UTI #Pneumonia rule out Sepsis alert was initiated in the ED, but IV fluids boluses were not given as patient has HFrEF ejection fraction 30-35% per previous echocardiogram, CBC showed leukocyt,osis, 16,000, CHEM panel showed worsening ORA, BUN 62, creatinine 2.7, EGFR 18, baseline creatinine seems to be around 1.9, mild troponin elevation 0.273, BNP 2395, procalcitonin 30.89, lactic acid 1.2 , urinalysis shows urine WBC 81, urine bacteria 2+, urine LE positive, chest x-ray showed mild heart failure and subtle opacity at lung bases consider pulmonary edema versus early pneumonia. Blood culture came back positive for GNR, pending final results. Plan ? IV ceftriaxone 1 daily started 12/27/2023- ? IV azithromycin 5 mg daily started 01/08/2024- ? Follow urine cultures and Gram stain ? Blood cultures and Gram stain ? IV fluid boluses withheld due to history of HFrEF #Acute toxic encephalopathy Most likely secondary to sepsis and bacteremia. There is concern of hydroxyzine as a cause for as a contributing factor for her eating cephalopathy. Brain CT scan was negative for any hemorrhage or mass effect Plan ? Hold home medication hydroxyzine due to encephalopathy ? Treat underlying infection with IV antibiotics, see above for details #ORA on CKD #Hypokalemia Patient has a history of cardiorenal syndrome and CKD, baseline creatinine seems to be around 1.9, on presentation BUN 62, creatinine 2.7 EGFR 18. Cardiorenal syndrome less likely as patient does not seem to be in acute CHF on physical examination, we will reorder echocardiogram to see if reduced EF leading to ORA. Patient was able to provide a urine sample, unlikely obstruction, but history is concerning for urinary incontinence. Plan - KCL IV 40mEq x1 ? Sent for urine electrolytes, urine creatinine, urine urea ? Renal ultrasound ? Nephrology consult ? Will hold Entresto due to concern for ORA ? Strict I's and O's ? Bladder scan ordered to rule out urinary obstruction #History of HFrEF Previous echocardiogram showed EF 30 to 35%, followed by cognos developer Dr. Sommers, patient does not seem to be in overt fluid overload, though chest x- ray did show possible pulmonary edema. ? Continue carvedilol at low-dose 12.5 mg p.o. twice daily, patient takes carvedilol 25 mg twice daily at home. ? Continue clopidogrel ? Hold Entresto due to ORA ? Continue statin ? Echocardiogram ordered to rule out acute drop in EF #History of diabetes mellitus ? A1c ordered ? insulin regular sliding scale insulin Disposition: Inpatient admit DVT prophylaxis: Heparin subcut GI prophylaxis: None Diet: Cardiac and renal Lines: PIV CODE STATUS: Full CODE - Patient's plan and care discussed with my attending, Dr. Wang and senior resident Dr. Reina Sánchez MD Internal Medicine PGY-1
[2023-12-28] MEDS: PRAVASTATIN SODIUM 10 MG TABLET PO (21:03)
[2023-12-29] VITALS (12 sets, daily range): BP systolic 136–173; BP diastolic 60–93; PULSE 55–82; RESP 18–28; TEMP 36.9–38.9; O2SAT 92–95; BMI 30.7
--- NOTE | 2023-12-29 02:08 | PC.NURSE ---
Patients money counted and sent down to be placed in safe. Registration at bedside; Money counted by this typewriter tester and registration staff. Money total was $1263.00.
[2023-12-29] MEDS: HEPARIN SOD INJ 5000 UNIT/ML VIAL SC ×3 (05:02→21:34)
[2023-12-29 05:55] LABS: Basophils # (Auto) 0.1 Thou/mm3 (0.0-0.2); Basophils % (Auto) 1 % (0-2.5); Eosinophils % (Auto) 0 % (0-10); Hematocrit 35.5 % (36.0-46.0); Hemoglobin 12.3 g/dL (12.0-16.0); Immature Granulocytes % (Auto) 0 % (0-0); Immature Granulocytes Auto 0.04 Thou/mm3 (0.00-0.00); Lymphocytes # (Auto) 1.2 Thou/mm3 (1.0-4.8); Lymphocytes % (Auto) 12 % (10-50); Mean Corpuscular HGB Conc 34.6 g/dl (31.0-37.0); Mean Corpuscular Hemoglobin 30.2 pg (25.0-35.0); Mean Corpuscular Volume 87 fL (80-100); Monocytes # (Auto) 0.8 Thou/mm3 (0.0-0.8); Monocytes % (Auto) 8 % (0-12); Neutrophils # (Auto) 8.1 Thou/mm3 (1.8-7.7); Neutrophils % (Auto) 79 % (37-80); Nucleated Red Blood Cell % 0 /100 WBC (0); Platelet Count 185 Thou/mm3 (140-440); RDW Standard Deviation 48.8 fL (36.4-46.3); Red Blood Count 4.07 Miln/mm3 (4.00-5.20); White Blood Count 10.2 Thou/mm3 (3.6-11.0)
[2023-12-29 06:15] LABS: Anion Gap 7 (7-16); BUN/Creatinine Ratio 24 Ratio (12-20); Blood Urea Nitrogen 68 mg/dL (9-23); Calcium 8.8 mg/dL (8.3-10.6); Carbon Dioxide 24.1 mMol/L (20.0-31.0); Chloride 104 mMol/L (98-107); Creatinine (Component) 2.8 mg/dL (0.6-1.3); Estimated Creatinine Clearance 18.3 mL/min (>60); Glucose 143 mg/dL (74-106); Osmolality,Calculated 291 (275-295); Potassium 3.6 mMol/L (3.4-5.1); Sodium 135 mMol/L (136-145); eGFR 18 See Note
[2023-12-29] MEDS: carVEDILOL 12.5 MG TABLET PO ×2 (07:26→18:00)
[2023-12-29] MEDS: ACETAMINOPHEN 325 MG TABLET 650 MG PO ×2 (07:26→19:41)
[2023-12-29] MEDS: INSULIN HUM REGULAR 1 UNIT/0.01 ML (PER UNIT) SC ×4 (07:39→20:29)
[2023-12-29] MEDS: SODIUM CHLORIDE 0.9% 1000 ML 1,000 ML 70 ML IV (07:40)
[2023-12-29 07:45] LABS: Uric Acid 8.2 mg/dL (3.1-7.8)
[2023-12-29 08:54] LABS: Alanine Aminotransferase 31 U/L (10-49); Alkaline Phosphatase 69 U/L (46-116); Aspartate Amino Transferase 48 U/L (0-34); Bilirubin,Direct 0.3 mg/dL (0.0-0.3); Bilirubin,Total 0.6 mg/dL (0.3-1.2); Total Protein 7.1 gm/dL (5.7-8.2)
[2023-12-29 09:07] LABS: Parathyroid Hormone Intact 105.5 pg/ml (18.5-88.0)
[2023-12-29] MEDS: DOXYCYCLINE INJ 100 MG in SODIUM CHLORIDE 0.9% (P) 100 ML IV ×2 (10:43→20:16)
[2023-12-29] MEDS: CEFEPIME INJ 1 GM in SODIUM CHLORIDE 0.9% (P) 50 ML IV (10:44)
[2023-12-29] MEDS: CLOPIDOGREL BISULFATE 75 MG TABLET PO (10:45)
--- NOTE | 2023-12-29 11:00 | CHAP ---
Patient was visited by the Spiritual Care Volunteer who prayed for them outside of room. (Volunteer was in the hospital from 09:00-11:00).
--- NOTE | 2023-12-29 11:51 | ESPR_ITS ---
<Statement entered by Robert Wang MD - 12/29/23 14:43> I have discussed and was present for the essential components of the history, physical examination, diagnosis, and treatment plan with the resident. I agree with the patient's care as documented by the resident and amended herein by me. Robert Wang MD FACP. Documentation for date of: 12/29/23 Subjective Subjective Interval history: Patient seen and examined at bedside this morning. Overnight she had a fever. Urine output was not charted. Will follow up with RN and place jones or use pierwick. Vitals, labs reviewed. Patient with another fever this morning. WBC normalized, Cr stable at 2.8. Blood and urine cultures returned E.coli, will deescalate antibiotics. At bedside, patient only endorses feeling warm and having occasional chills. No chest pain, SOB, abd pain, N/V/D, dysuria or joint pain. Exam Vital Signs Temp Pulse Resp BP Pulse Ox O2 Del Method O2 Flow Rate 100.3 F 82 28 H 173/75 H 94 L Nasal Cannula 2 12/29/23 08:26 12/29/23 08:00 12/29/23 08:00 12/29/23 08:00 12/29/23 08:00 12/29/23 08:00 12/29/23 04:00 Narrative Exam Gen: AAOx3, resting comfortably, arousable to voice, pleasant to speak with HEENT: NCAT, MM dry, no JVD noted CVS: normal S1, S2. RRR. No MRG Resp: mild crackles Abd: soft, non-tender, non-distended. BS+ in all 4 quadrants MSK: Good ROM in BUE & BLE. No edema or rash. Neuro: CN II-XII grossly intact. No focal deficits appreciated Objective Labs 12/29/23 05:18 12/29/23 05:18 Labs: Laboratory Results - last 24 hr 12/28/23 12/29/23 11:30 05:18 WBC 10.2 D RBC 4.07 Hgb 12.3 Hct 35.5 L MCV 87 MCH 30.2 MCHC 34.6 RDW Std Deviation 48.8 H Plt Count 185 Neut % (Auto) 79 Lymph % (Auto) 12 [place] % (Auto) 8 Eos % (Auto) 0 Baso % (Auto) 1 Neut # (Auto) 8.1 H Lymph # (Auto) 1.2 [place] # (Auto) 0.8 Eos # (Auto) 0.0 Baso # (Auto) 0.1 Immature Gran # (Auto) 0.04 H Absolute Nucleated RBC 0.00 Immature Gran % 0 Nucleated RBC % 0 Sodium 135 L Potassium 3.6 Chloride 104 Carbon Dioxide 24.1 Anion Gap 7 BUN 68 H Creatinine 2.8 H Estim Creat Clear Calc 18.3 L eGFR 18 L BUN/Creatinine Ratio 24 H Glucose 143 H Calculated Osmolality 291 Uric Acid 8.2 H Calcium 8.8 Total Bilirubin 0.6 Direct Bilirubin 0.3 AST 48 H ALT 31 Alkaline Phosphatase 69 Total Protein 7.1 Albumin 4.0 PTH Intact 105.5 H Ur Random Creatinine 57 Ur Random Sodium < 15.0 L Ur Random Potassium 30 Ur Random Chloride < 20.0 L Ur Random Urea Nitrogn 494.0 Quality Measures Quality Measures VTE prophylaxis Advance care planning discussed with:: patient Assessment & Plan Assessment Current Active Medications: Generic Name Dose Route Start Last Admin Trade Name Freq PRN Reason Stop Dose Admin Acetaminophen 650 mg 12/27/23 20:22 12/29/23 07:26 Acetaminophen 325 Mg Tablet PO 01/26/24 20:21 650 mg Q6H PRN Administration Fever >101.5 Carvedilol 12.5 mg 12/28/23 08:00 12/29/23 07:26 Carvedilol 12.5 Mg Tablet PO 01/27/24 07:59 12.5 mg BIDWM REED Administration Clopidogrel Bisulfate 75 mg 12/28/23 09:00 12/29/23 10:45 Clopidogrel Bisulfate 75 Mg Tablet PO 01/27/24 08:59 75 mg QDAY REED Administration Dextrose 25 ml 12/27/23 20:25 Dextrose 50%-Water Inj 50 Ml Syringe IV 01/26/24 20:24 Q15MIN PRN BG 50-70 responsive npo pt Dextrose 50 ml 12/27/23 20:25 Dextrose 50%-Water Inj 50 Ml Syringe IV 01/26/24 20:24 Q15MIN PRN BG <50 OR BG <70 & pt unresponsive Glucagon 1 mg 12/27/23 20:25 Glucagon Inj 1 Mg Vial IM Q15MIN PRN BG <70, and no IV access Heparin Sodium (Porcine) 5,000 unit 12/27/23 22:00 12/29/23 05:02 Heparin Sod Inj 5000 Unit/Ml Vial SC 01/10/24 21:59 5,000 unit Q8HR REED Administration Sodium Chloride 1,000 mls @ 70 mls/hr 12/29/23 06:50 12/29/23 07:40 Ns IV 12/29/23 21:07 70 mls/hr .[id number] REED Administration Doxycycline Hyclate 100 mg/ 100 mls @ 100 mls/hr 12/29/23 09:00 12/29/23 10:43 Sodium Chloride IV 01/05/24 08:59 100 mls/hr BID REED Administration Ceftriaxone Sodium/Dextrose 50 mls @ 100 mls/hr 12/29/23 10:54 Rocephin/D5w 1gm Iv Premix IV 01/05/24 10:53 QDAY REED Insulin Human Regular 0 unit 12/27/23 21:00 12/29/23 11:28 Insulin Hum Regular 1 Unit/0.01 Ml (Per Unit) SC 01/26/24 20:59 1 unit ACHS REED Administration Protocol Pravastatin Sodium 10 mg 12/27/23 21:00 12/28/23 21:03 Pravastatin Sodium 10 Mg Tablet PO 01/26/24 20:59 10 mg HS REED Administration Plan Patient is a 73-year-old female with HFrEF with improved EF 40-45%, CKD stage IV, history of cardiorenal syndrome, T2DM, HTN, history of CVA, HLD who presented with encephalopathy and fever. Patient was admitted for sepsis secondary to E. coli bacteremia, UTI secondary to E. coli, & possible community- acquired pneumonia. Additionally labs were significant for ORA on CKD. #Acute encephalopathy, likely infectious from sepsis, resolved #Sepsis, secondary to #E. coli bacteremia #UTI secondary to E. coli Initial head CT was negative. Patient AAOx3 30 cc per kg bolus per sepsis protocol was not given due to HFrEF; received 500cc NS bolus and started on 1L maintenance IVF Patient continues to have fevers, however leukocytosis has resolved Blood & urine cultures grew E. coli, sensitive to Rocephin Cefepime was de-escalated to Rocephin; added doxycycline as patient continues to have fevers #Concern for Community-acquired pneumonia As seen on CXR DDx includes pulmonary edema, although patient appears dry Continuing antibiotics as above; will monitor VS while patient receives 1L maintenance fluids. #ORA on CKD 4 #History of cardiorenal syndrome #Elevated uric acid Creatinine on admission was 2.7, baseline appears to be 1.9 Creatinine has increased to 2.8 Will hold home nephrotoxic medications, including Entresto, Lasix, Jardiance As patient takes Lasix at home, FEUrea was calculated and noted to be 37.3%, suggesting intrinsic cause of ORA Renal ultrasound: Small right kidney, bilateral renal cortical thinning, moderate right mild left renal parenchymal scar formation. Bilateral nonobstructing renal calculi. No hydronephrosis Nephro consulted, appreciate recommendations: Gentle IV fluids with NS@70 cc/h x 1 L Uric acid 8.2, no signs of gout noted, and patient denies any symptoms #History of HFrEF #HTN Clinically, patient appears dry, although BNP is elevated Strict I's and O's Echo was ordered, and revealed improved EF, now 40-45%. Echo also shows mild systolic dysfunction with global hypokinesis and LVH. Stage II diastolic dysfunction. Mild RV dilatation, with normal systolic function. RVSP 57 mmHg. RV mildly dilated. Will hold Entresto, Jardiance, Lasix due to ORA Continue Coreg #T2DM A1c 6.2 Continue SSI with hypoglycemic protocol in place FBG within goal 140-180 #HLD #History of CVA Continue home Plavix & pravastatin Dispo: Patient remains admitted for treatment of sepsis secondary to E. coli bacteremia and UTI; continues to have fevers; antibiotics were adjusted GI PPx: None DVT PPx: Heparin Diet: Carb consistent CODE STATUS: Full code Patient seen and care discussed with my attending Dr. Wang. Purnima Talavera MD PGY-2
[2023-12-29] MEDS: cefTRIAXone/D5w 1gm IV premix 50 ML IV (13:35)
--- NOTE | 2023-12-29 14:38 | PD.NEPHPROG ---
Documentation for date of: 12/29/23 Subjective Subjective Interval history: Ms. Echols is a 73-year-old lady with history of hypertension, dyslipidemia, congestive heart failure, chronic kidney disease stage IIIb, history of stroke, anxiety was brought to the emergency department by her daughter with confusion fever and a significant weakness in the lower extremities. In the ER patient was noted to have UTI and sepsis and admitted to telemetry. Patient is a poor historian and chart review done. No family around. In the emergency department-Tmax 103, heart rate 80, blood pressure 159/72. EKG showed right bundle branch block. Patient under the care of Dr. Thuan Murrieta. Last ejection fraction 30 to 35%. WBC 16, BUN 62, creatinine 2.7 with a GFR of 18. (Last month her creatinine was 1.9), BNP 2395, Pro-Billy 30.8, lactic acid 1.2, urinalysis shows significant pyuria. Chest x-ray questionable pneumonia in the lung base. Patient was started on ceftriaxone, azithromycin and admitted to telemetry. Renal consultation requested in view of acute renal failure. Home medications included Jardiance, pravastatin, hydroxyzine, Lasix 80 mg p.o. daily, Lexapro, Entresto, amlodipine, carvedilol, Plavix. 12/29/2023 patient currently seen in telemetry. More alert and awake although still seems to have some confusion. Not sure what her baseline is. No family around. WBC improved to 10.2, hemoglobin 12.3, platelets 185. Sodium 135, potassium 3.6, BUN 68, creatinine 2.8, uric acid 8.2, AST 48, albumin 4, PTH 105.5 urine sodium less than 15 Review of Systems Review of Systems Narrative Review of Systems: Limited due to her mental status. Patient still seems to be slow in responding. Denies any fever or chills. Denies any abdominal pain. Exam Vital Signs Temp Pulse Resp BP Pulse Ox O2 Del Method O2 Flow Rate 37.9 C 82 28 H 173/75 H 94 L Nasal Cannula 2 12/29/23 08:26 12/29/23 08:00 12/29/23 08:00 12/29/23 08:00 12/29/23 08:00 12/29/23 08:00 12/29/23 04:00 Narrative Exam GENERAL APPEARANCE: Patient seems to be comfortable, adequately hydrated and nourished. Patient currently seen in telemetry. HEENT: EOMI, PERRLA NECK: Neck supple, no JVD or bruit CARDIOVASCULAR: Heart regular, no murmurs LUNGS/CHEST: Chest clear to auscultation. No rales, rhonchi, wheezing ABDOMEN: Soft, nontender, nondistended. No masses. Normal bowel sounds. EXTREMITIES: No edema, clubbing or cyanosis. SKIN: Skin exam normal without any rashes MUSCULOSKELETAL: In bed NEUROLOGICAL : able to move her extremities, seems to have some memory lapses Objective Labs 12/30/23 05:30 12/29/23 05:18 Labs: Laboratory Results - last 24 hr 12/29/23 05:18 WBC 10.2 D RBC 4.07 Hgb 12.3 Hct 35.5 L MCV 87 MCH 30.2 MCHC 34.6 RDW Std Deviation 48.8 H Plt Count 185 Neut % (Auto) 79 Lymph % (Auto) 12 [place] % (Auto) 8 Eos % (Auto) 0 Baso % (Auto) 1 Neut # (Auto) 8.1 H Lymph # (Auto) 1.2 [place] # (Auto) 0.8 Eos # (Auto) 0.0 Baso # (Auto) 0.1 Immature Gran # (Auto) 0.04 H Absolute Nucleated RBC 0.00 Immature Gran % 0 Nucleated RBC % 0 Sodium 135 L Potassium 3.6 Chloride 104 Carbon Dioxide 24.1 Anion Gap 7 BUN 68 H Creatinine 2.8 H Estim Creat Clear Calc 18.3 L eGFR 18 L BUN/Creatinine Ratio 24 H Glucose 143 H Calculated Osmolality 291 Uric Acid 8.2 H Calcium 8.8 Total Bilirubin 0.6 Direct Bilirubin 0.3 AST 48 H ALT 31 Alkaline Phosphatase 69 Total Protein 7.1 Albumin 4.0 PTH Intact 105.5 H Assessment & Plan Assessment and plan (1) ORA (acute kidney injury): Status: Acute Assessment and plan: ORA secondary to prerenal azotemia. Patient has decreased p.o. intake, on Entresto, high doses of Lasix along with Jardiance. Hold all the medications for now. Gentle IV fluids recommended. CT abdomen showed no hydronephrosis. Urine sodium less than 10. Despite BNP elevated-clinically looks dehydrated. 1 L IV fluids given. Creatinine stable at 2.8. Hopefully it is going to improve. (2) Acute UTI: Status: Acute Assessment and plan: On broad-spectrum antibiotics (3) Community acquired pneumonia: Status: Acute Assessment and plan: On antibiotics (4) Sepsis: Status: Acute Assessment and plan: Pending cultures-IV fluids, IV antibiotics (5) Hypertension: Status: Acute Assessment and plan: Blood pressure seems to be stable. Hold off on Entresto, Lasix (6) Congestive heart failure: Status: Acute Assessment and plan: Despite BNP elevated, patient clinically looks dehydrated. Gentle IV fluids. Plan of care discussed with primary team. Additional Assessment & Plan Additional Plan: Thank you Dr. Wang for allowing me to participate in the care of Ms. Echols Quality - progress note Quality Measures Quality Measures: VTE prophylaxis Reason for Continued Stay Reason for Continued Stay: further monitoring
--- NOTE | 2023-12-29 15:52 | PC.NURSE ---
Purewick placed as verbally ordered by Dr. Talavera. Per Dr. Talavera jones catheter not necessary unless purewick is not adequate for monitoring output. Purewick in place and working.
--- NOTE | 2023-12-29 18:06 | PC.NURSE ---
Telephone order received per Dr. Reid to place patient on 1500 ML/day fluid restriction.
[2023-12-29] MEDS: PRAVASTATIN SODIUM 10 MG TABLET PO (20:17)
[2023-12-30] VITALS (10 sets, daily range): BP systolic 136–167; BP diastolic 71–97; PULSE 60–82; RESP 17–26; TEMP 36.1–39.4; O2SAT 93–97; BMI 30.7
[2023-12-30] MEDS: ACETAMINOPHEN 325 MG TABLET 650 MG PO (04:21)
[2023-12-30] MEDS: HEPARIN SOD INJ 5000 UNIT/ML VIAL SC ×3 (05:21→21:10)
[2023-12-30 06:08] LABS: Basophils # (Auto) 0.1 Thou/mm3 (0.0-0.2); Basophils % (Auto) 1 % (0-2.5); Eosinophils % (Auto) 0 % (0-10); Hematocrit 31.7 % (36.0-46.0); Hemoglobin 10.8 g/dL (12.0-16.0); Immature Granulocytes % (Auto) 0 % (0-0); Immature Granulocytes Auto 0.04 Thou/mm3 (0.00-0.00); Lymphocytes # (Auto) 0.9 Thou/mm3 (1.0-4.8); Lymphocytes % (Auto) 9 % (10-50); Mean Corpuscular HGB Conc 34.1 g/dl (31.0-37.0); Mean Corpuscular Hemoglobin 29.7 pg (25.0-35.0); Mean Corpuscular Volume 87 fL (80-100); Monocytes # (Auto) 0.9 Thou/mm3 (0.0-0.8); Monocytes % (Auto) 10 % (0-12); Neutrophils # (Auto) 7.7 Thou/mm3 (1.8-7.7); Neutrophils % (Auto) 80 % (37-80); Nucleated Red Blood Cell % 0 /100 WBC (0); Platelet Count 180 Thou/mm3 (140-440); RDW Standard Deviation 48.6 fL (36.4-46.3); Red Blood Count 3.64 Miln/mm3 (4.00-5.20); White Blood Count 9.6 Thou/mm3 (3.6-11.0)
[2023-12-30 06:55] LABS: Alanine Aminotransferase 30 U/L (10-49); Albumin, Serum 3.7 gm/dL (3.4-4.8); Albumin/Globulin Ratio 1.3 (1.2-2.2); Alkaline Phosphatase 72 U/L (46-116); Anion Gap 10 (7-16); Aspartate Amino Transferase 34 U/L (0-34); BUN/Creatinine Ratio 24 Ratio (12-20); Bilirubin,Total 0.6 mg/dL (0.3-1.2); Blood Urea Nitrogen 55 mg/dL (9-23); Calcium 8.5 mg/dL (8.3-10.6); Calcium (Corrected) 8.7 mg/dL (8.5-10.1); Carbon Dioxide 19.6 mMol/L (20.0-31.0); Chloride 104 mMol/L (98-107); Creatinine (Component) 2.3 mg/dL (0.6-1.3); Estimated Creatinine Clearance 22.3 mL/min (>60); Globulin 2.9 gm/dL (2.3-3.5); Glucose 158 mg/dL (74-106); Magnesium 2.1 mg/dL (1.6-2.6); Osmolality,Calculated 286 (275-295); Potassium 3.4 mMol/L (3.4-5.1); Sodium 134 mMol/L (136-145); Total Protein 6.6 gm/dL (5.7-8.2); eGFR 22 See Note
[2023-12-30] MEDS: carVEDILOL 12.5 MG TABLET PO ×2 (07:55→17:01)
[2023-12-30] MEDS: INSULIN HUM REGULAR 1 UNIT/0.01 ML (PER UNIT) SC ×4 (07:56→21:13)
[2023-12-30] MEDS: cefTRIAXone/D5w 1gm IV premix 50 ML IV (09:33)
[2023-12-30] MEDS: CLOPIDOGREL BISULFATE 75 MG TABLET PO (09:34)
[2023-12-30] MEDS: DOXYCYCLINE INJ 100 MG in SODIUM CHLORIDE 0.9% (P) 100 ML IV ×2 (09:34→21:08)
--- NOTE | 2023-12-30 10:25 | XR_ITS ---
Examination: CT abdomen and pelvis without contrast. Coronal 3-D reconstructions. Sagittal 2-D reconstructions. Date and time of exam:December 30, 1999 2412 noon INDICATIONS: Onset sepsis today CTDI: vol (mGy): 9.73 DLP: (mGycm): 513 Technique: Axial images of the abdomen have been obtained, 3 mm slice thickness Intravenous contrast material has not been administered. Low dose protocols were performed. One or more of the following dose reduction techniques were used; automated exposure control, adjustment of the mA and/or KV according to patient size, use of iterative reconstruction technique. Findings: Mild right minimal left pleural fluid Mild enlargement cardiac contour No focal liver lesions Contracted gallbladder Spleen not enlarged No pancreatic mass Trace free fluid in the abdomen No renal or ureteral calculi, mild perinephric stranding Abdominal aortic calcification no aneurysmal dilatation Normal appendix Colonic diverticulosis, no diverticulitis Partially retroverted uterus Contracted urinary bladder with wall thickening up to 10 mm IMPRESSION: Perinephric stranding, consider urinary tract infection Urinary bladder wall thickening, differential would include cystitis
--- NOTE | 2023-12-30 11:27 | PC.SS ---
WheelChairs Patients diagnosis creates mobility limitations that significantly impairs ability to participate in the patient?s activities of daily living either in their entirety, or in a reasonable time frame in the home and the patient?s mobility limitations can not be sufficiently resolved with an appropriately fitted cane or walker. Also the use of a manual wheelchair will sufficiently improve patient?s ability to participate in the activities of daily living in the home and the patient is willing to use the wheelchair that is provided in the home. The patient has some one in the home that is available, willing and able to provide assistance with the wheelchair.
--- NOTE | 2023-12-30 11:29 | PD.NEPHPROG ---
Documentation for date of: 12/30/23 Subjective Subjective Interval history: Ms. Echols is a 73-year-old lady with history of hypertension, dyslipidemia, congestive heart failure, chronic kidney disease stage IIIb, history of stroke, anxiety was brought to the emergency department by her daughter with confusion fever and a significant weakness in the lower extremities. In the ER patient was noted to have UTI and sepsis and admitted to telemetry. Patient is a poor historian and chart review done. No family around. In the emergency department-Tmax 103, heart rate 80, blood pressure 159/72. EKG showed right bundle branch block. Patient under the care of Dr. Thuan Murrieta. Last ejection fraction 30 to 35%. WBC 16, BUN 62, creatinine 2.7 with a GFR of 18. (Last month her creatinine was 1.9), BNP 2395, Pro-Billy 30.8, lactic acid 1.2, urinalysis shows significant pyuria. Chest x-ray questionable pneumonia in the lung base. Patient was started on ceftriaxone, azithromycin and admitted to telemetry. Renal consultation requested in view of acute renal failure. Home medications included Jardiance, pravastatin, hydroxyzine, Lasix 80 mg p.o. daily, Lexapro, Entresto, amlodipine, carvedilol, Plavix. 12/29/2023 patient currently seen in telemetry. More alert and awake although still seems to have some confusion. Not sure what her baseline is. No family around. WBC improved to 10.2, hemoglobin 12.3, platelets 185. Sodium 135, potassium 3.6, BUN 68, creatinine 2.8, uric acid 8.2, AST 48, albumin 4, PTH 105.5 urine sodium less than 15 12/30/2023 patient currently seen in medical floor. Resting comfortably. Noted to have some memory lapses and some confusion. BUN and creatinine stable at 2.3. Did receive gentle IV fluids. Review of Systems Review of Systems Narrative Review of Systems: Limited due to her mental status. Patient still seems to be slow in responding. Denies any fever or chills. Denies any abdominal pain. Exam Vital Signs Temp Pulse Resp BP Pulse Ox O2 Del Method O2 Flow Rate 36.1 C 64 26 H 160/80 H 97 Nasal Cannula 3 12/30/23 08:00 12/30/23 08:00 12/30/23 08:00 12/30/23 08:00 12/30/23 08:00 12/30/23 08:00 12/30/23 08:00 Narrative Exam GENERAL APPEARANCE: Patient seems to be comfortable, adequately hydrated and nourished. Patient currently seen in telemetry. HEENT: EOMI, PERRLA NECK: Neck supple, no JVD or bruit CARDIOVASCULAR: Heart regular, no murmurs LUNGS/CHEST: Chest clear to auscultation. No rales, rhonchi, wheezing ABDOMEN: Soft, nontender, nondistended. No masses. Normal bowel sounds. EXTREMITIES: No edema, clubbing or cyanosis. SKIN: Skin exam normal without any rashes MUSCULOSKELETAL: In bed NEUROLOGICAL : able to move her extremities, seems to have some memory lapses Objective Labs 01/01/24 04:35 01/01/24 04:35 Labs: Laboratory Results - last 24 hr 12/30/23 05:30 WBC 9.6 RBC 3.64 L Hgb 10.8 L Hct 31.7 L MCV 87 MCH 29.7 MCHC 34.1 RDW Std Deviation 48.6 H Plt Count 180 Neut % (Auto) 80 Lymph % (Auto) 9 L [place] % (Auto) 10 Eos % (Auto) 0 Baso % (Auto) 1 Neut # (Auto) 7.7 Lymph # (Auto) 0.9 L [place] # (Auto) 0.9 H Eos # (Auto) 0.0 Baso # (Auto) 0.1 Immature Gran # (Auto) 0.04 H Absolute Nucleated RBC 0.00 Immature Gran % 0 Nucleated RBC % 0 Sodium 134 L Potassium 3.4 Chloride 104 Carbon Dioxide 19.6 L Anion Gap 10 BUN 55 H Creatinine 2.3 H D Estim Creat Clear Calc 22.3 L eGFR 22 L BUN/Creatinine Ratio 24 H Glucose 158 H Calculated Osmolality 286 Calcium 8.5 Corrected Calcium 8.7 Magnesium 2.1 Total Bilirubin 0.6 AST 34 ALT 30 Alkaline Phosphatase 72 Total Protein 6.6 Albumin 3.7 Globulin 2.9 Albumin/Globulin Ratio 1.3 Assessment & Plan Assessment and plan (1) ORA (acute kidney injury): Status: Acute Assessment and plan: ORA secondary to prerenal azotemia. Patient has decreased p.o. intake, on Entresto, high doses of Lasix along with Jardiance. Hold all the medications for now. Gentle IV fluids recommended. CT abdomen showed no hydronephrosis. Urine sodium less than 10. Despite BNP elevated-clinically looks dehydrated. 1 L IV fluids given. Creatinine Improved to 2.3. Hopefully it is going to improve. (2) Acute UTI: Status: Acute Assessment and plan: On broad-spectrum antibiotics (3) Community acquired pneumonia: Status: Acute Assessment and plan: On antibiotics (4) Sepsis: Status: Acute Assessment and plan: Pending cultures-IV fluids, IV antibiotics (5) Hypertension: Status: Acute Assessment and plan: Blood pressure seems to be stable. Hold off on Entresto, Lasix (6) Congestive heart failure: Status: Acute Assessment and plan: Despite BNP elevated, patient clinically looks dehydrated. Gentle IV fluids. Plan of care discussed with primary team. Additional Assessment & Plan Additional Plan: Thank you Dr. Wang for allowing me to participate in the care of Ms. Echols Quality - progress note Quality Measures Quality Measures: VTE prophylaxis Reason for Continued Stay Reason for Continued Stay: further monitoring
--- NOTE | 2023-12-30 11:54 | ESPR_ITS ---
<Statement entered by Robert Wang MD - 01/03/24 08:49> I have discussed and was present for the essential components of the history, physical examination, diagnosis, and treatment plan with the resident. I agree with the patient's care as documented by the resident and amended herein by me. Robert Wang MD, FACP. Documentation for date of: 12/30/23 Subjective Subjective Interval history: Patient seen and examined at bedside this morning. Labs, vitals reviewed. Patient continues to have fevers overnight. When asked, she denies having any symptoms and states that she feels fine, however daughter states that patient thinks she will be able to go home if she says everything is okay. Creatinine improved however CO2 on CHEM panel worsened. Will follow-up with nephro for further recs. Will obtain CT abdomen pelvis to further evaluate for patient's fevers and rule out abscess or stone. PT eval ordered. Exam Vital Signs Temp Pulse Resp BP Pulse Ox O2 Del Method O2 Flow Rate 97.0 F 64 26 H 160/80 H 97 Nasal Cannula 3 12/30/23 08:00 12/30/23 08:00 12/30/23 08:00 12/30/23 08:00 12/30/23 08:00 12/30/23 08:00 12/30/23 08:00 Narrative Exam Gen: AAOx3, pleasant to speak with HEENT: NCAT, MMM, on NC, no JVD noted CVS: normal S1, S2. RRR. No MRG Resp: mild crackles appreciated; mildly tachypneic Abd: soft, non-tender, non-distended. BS+ in all 4 quadrants MSK: Good ROM in BUE & BLE. No edema or rash. Neuro: CN II-XII grossly intact. No focal deficits appreciated Objective Labs 12/30/23 05:30 12/30/23 05:30 Labs: Laboratory Results - last 24 hr 12/30/23 05:30 WBC 9.6 RBC 3.64 L Hgb 10.8 L Hct 31.7 L MCV 87 MCH 29.7 MCHC 34.1 RDW Std Deviation 48.6 H Plt Count 180 Neut % (Auto) 80 Lymph % (Auto) 9 L [place] % (Auto) 10 Eos % (Auto) 0 Baso % (Auto) 1 Neut # (Auto) 7.7 Lymph # (Auto) 0.9 L [place] # (Auto) 0.9 H Eos # (Auto) 0.0 Baso # (Auto) 0.1 Immature Gran # (Auto) 0.04 H Absolute Nucleated RBC 0.00 Immature Gran % 0 Nucleated RBC % 0 Sodium 134 L Potassium 3.4 Chloride 104 Carbon Dioxide 19.6 L Anion Gap 10 BUN 55 H Creatinine 2.3 H D Estim Creat Clear Calc 22.3 L eGFR 22 L BUN/Creatinine Ratio 24 H Glucose 158 H Calculated Osmolality 286 Calcium 8.5 Corrected Calcium 8.7 Magnesium 2.1 Total Bilirubin 0.6 AST 34 ALT 30 Alkaline Phosphatase 72 Total Protein 6.6 Albumin 3.7 Globulin 2.9 Albumin/Globulin Ratio 1.3 Quality Measures Quality Measures VTE prophylaxis Advance care planning discussed with:: child Assessment & Plan Assessment Current Active Medications: Generic Name Dose Route Start Last Admin Trade Name Freq PRN Reason Stop Dose Admin Acetaminophen 650 mg 12/27/23 20:22 12/30/23 04:21 Acetaminophen 325 Mg Tablet PO 01/26/24 20:21 650 mg Q6H PRN Administration Fever >101.5 Carvedilol 12.5 mg 12/28/23 08:00 12/30/23 07:55 Carvedilol 12.5 Mg Tablet PO 01/27/24 07:59 12.5 mg BIDWM REED Administration Clopidogrel Bisulfate 75 mg 12/28/23 09:00 12/30/23 09:34 Clopidogrel Bisulfate 75 Mg Tablet PO 01/27/24 08:59 75 mg QDAY REED Administration Dextrose 25 ml 12/27/23 20:25 Dextrose 50%-Water Inj 50 Ml Syringe IV 01/26/24 20:24 Q15MIN PRN BG 50-70 responsive npo pt Dextrose 50 ml 12/27/23 20:25 Dextrose 50%-Water Inj 50 Ml Syringe IV 01/26/24 20:24 Q15MIN PRN BG <50 OR BG <70 & pt unresponsive Glucagon 1 mg 12/27/23 20:25 Glucagon Inj 1 Mg Vial IM Q15MIN PRN BG <70, and no IV access Heparin Sodium (Porcine) 5,000 unit 12/27/23 22:00 12/30/23 05:21 Heparin Sod Inj 5000 Unit/Ml Vial SC 01/10/24 21:59 5,000 unit Q8HR REED Administration Doxycycline Hyclate 100 mg/ 100 mls @ 100 mls/hr 12/29/23 09:00 12/30/23 09:34 Sodium Chloride IV 01/05/24 08:59 100 mls/hr BID REED Administration Ceftriaxone Sodium/Dextrose 50 mls @ 100 mls/hr 12/29/23 10:54 12/30/23 09:33 Rocephin/D5w 1gm Iv Premix IV 01/05/24 10:53 100 mls/hr QDAY REED Administration Insulin Human Regular 0 unit 12/27/23 21:00 12/30/23 07:56 Insulin Hum Regular 1 Unit/0.01 Ml (Per Unit) SC 01/26/24 20:59 1 unit ACHS REED Administration Protocol Pravastatin Sodium 10 mg 12/27/23 21:00 12/29/23 20:17 Pravastatin Sodium 10 Mg Tablet PO 01/26/24 20:59 10 mg HS REED Administration Plan Patient is a 73-year-old female with HFrEF with improved EF 40-45%, CKD stage IV, history of cardiorenal syndrome, T2DM, HTN, history of CVA, HLD who presented with encephalopathy and fever. Patient was admitted for sepsis secondary to E. coli bacteremia, UTI secondary to E. coli, & possible community- acquired pneumonia. Additionally labs were significant for ORA on CKD. #Acute encephalopathy, likely infectious from sepsis, resolved #Sepsis, secondary to #E. coli bacteremia #UTI secondary to E. coli Initial head CT was negative. Patient AAOx3 30 cc per kg bolus per sepsis protocol was not given due to HFrEF; received 500cc NS bolus and started on 1L maintenance IVF Patient continues to have fevers, however leukocytosis has resolved => Follow-up CT abdomen pelvis Blood & urine cultures grew E. coli, sensitive to Rocephin Cefepime was de-escalated to Rocephin; added doxycycline as patient continues to have fevers #Concern for Community-acquired pneumonia As seen on CXR DDx includes pulmonary edema Continuing antibiotics as above #ORA on CKD 4, improving #History of cardiorenal syndrome #Elevated uric acid #Non-anion gap metabolic acidosis Creatinine on admission was 2.7, baseline appears to be 1.9 Continue to hold home nephrotoxic medications, including Entresto, Lasix, Jardiance As patient takes Lasix at home, FEUrea was calculated and noted to be 37.3%, suggesting intrinsic cause of ORA => creatinine downtrending, 2.3 Renal ultrasound: Small right kidney, bilateral renal cortical thinning, moderate right mild left renal parenchymal scar formation. Bilateral nonobstructing renal calculi. No hydronephrosis Nephro consulted, appreciate recommendations: Gentle IV fluids with NS@70 cc/h x 1 L Uric acid 8.2, no signs of gout noted, and patient denies any symptoms CO2 on CHEM panel 19.6, anion gap 10. Urine anion gap calculated to be 25. Possible RTA vs NS infusion #History of HFrEF #HTN Clinically, patient appears dry, although BNP is elevated Strict I's and O's Echo was ordered, and revealed improved EF, now 40-45%. Echo also shows mild systolic dysfunction with global hypokinesis and LVH. Stage II diastolic dysfunction. Mild RV dilatation, with normal systolic function. RVSP 57 mmHg. RV mildly dilated. Will hold Entresto, Jardiance, Lasix due to ORA Continue Coreg #T2DM A1c 6.2 Continue SSI with hypoglycemic protocol in place FBG within goal 140-180 #HLD #History of CVA Continue home Plavix & pravastatin Dispo: Patient remains admitted for treatment of sepsis secondary to E. coli bacteremia and UTI; continues to have fevers; antibiotics were adjusted; CT A/P ordered GI PPx: None DVT PPx: Heparin Diet: Carb consistent CODE STATUS: Full code Patient seen and care discussed with my attending Dr. Wang. Purnima Talavera MD PGY-2
--- NOTE | 2023-12-30 12:08 | PC.SS ---
[employer] submitted DME referral for WC on [facility]. Per SS notes, patient does not have a preferred DME vendor.
--- NOTE | 2023-12-30 13:36 | PD.IMCONS ---
HPI Data of Consult Patient: known to practice within the last 3 years Consult date: 12/30/23 Requesting Physician: Robert Wang MD Primary Care Provider: Collins Bender Consult Narrative Reason for consult: CHF and ORA History of present illness: A 72-year-old male is a 72-year-old female with a past medical history of chronic severe systolic CHF with reduced ejection fraction of 30 to 35% echo done in April 2023 now improved to 40 to 45% on the echo in December 2023, diastolic dysfunction stage II, mild RV systolic dysfunction, moderate pulmonary hypertension, moderate MR, mildly dilated ascending aorta at 3.7 cm, history of CVA, essential hypertension, diabetes mellitus type 2, hyperlipidemia, CKD stage III with a creatinine baseline of around 1.8 to 2.0, COPD secondary to chronic smoking with more than 20 pack years on intermittent oxygen presented to the emergency department for confusion as well as generalized weakness for the past few days. Patient apparently was brought to the emergency department and the daughter she was confused for the past 2 days and also had a fever. Patient denied any kind of chest pain chest pressure shortness of breath orthopnea PND dizziness or syncope or fall. In the emergency department patient is and initial temperature was 103F, heart rate of 80/min respirate rate of 16/min blood pressure of 159/72 mmHg saturating 93% on room air. Labs showed WBC of 16 and hemoglobin of 13.6 and platelets of 175. BUN was 62 creatinine was 2.7 sodium was 130 potassium was 4.1 bicarb of 22 troponin was mildly elevated at 0.273, UA was positive. Procalcitonin was elevated at 30.89. BNP was 2395. Lactic acid was 1.2. Chest x-ray showed mild pulmonary vascular congestion and heart failure and questionable opacity in the lung bases versus early pneumonia. EKG showed normal sinus rhythm with incomplete RBBB and nonspecific ST-T changes. Patient was admitted for sepsis and was started on IV antibiotics. Nephrology was also consulted during the admission for acute kidney injury. Patient well-known to me from previous admissions and also follows up very closely with me in the clinic almost every month. Patient was being treated aggressively for her severe systolic congestive heart failure and was appropriate treatment for the heart failure with Coreg return for milligrams p.o. twice daily, Entresto 24-26 mg twice daily. Patient was on Lasix 80 mg p.o. twice daily and was aggressively diuresed and was recently changed to Lasix 80 mg once daily. Patient was also placed on Jardiance. Patient was supposed to have a follow-up echo in the office after the aggressive treatment of the heart failure but patient got admitted to the hospital. Patient daughter informed us of the admission. Past medical history: As noted above Past surgical history: History of Social history: Patient lives in [place] with her son and also daughter. Patient used to smoke more than 5 cigarettes a day but quit few years ago around 20 pack years history. Denies any kind of alcohol or drug abuse. Family history significant for hypertension and kidney disease Allergies: NKDA Travel history: None recently cc:: cc: Robert Wang MD Review of Systems Review of Systems Systems Reviewed: All systems reviewed, normal except as documented Past Medical History Past Medical History CARDIAC: Positive Hypercholesterolemia and Hypertension; Negative Congestive Heart Failure RESPIRATORY: Positive Respiratory Disorders; Negative Chronic Obstructive Pulmonary Disease (COPD) GENITOURINARY: Negative Renal Disease ENDOCRINE: Positive Diabetes Mellitus Type 2; Negative Diabetes Mellitus Type 1 Social History SMOKING STATUS: Former smoker SECOND HAND EXPOSURE: Yes SUBSTANCE USE: does not use Meds Home Medications and Allergies Home Medications ?Medication ?Instructions ?Recorded ?Confirmed ?Type clopidogrel 75 mg tablet 75 mg PO QDAY 04/13/23 12/27/23 History empagliflozin 25 mg tablet 25 mg PO QDAY 04/13/23 12/27/23 History (Jardiance) escitalopram oxalate 10 mg tablet 10 mg PO QDAY 04/13/23 12/27/23 History hydroxyzine HCl 25 mg tablet 25 mg PO HS PRN Sleep 04/13/23 12/27/23 History pravastatin 20 mg tablet 20 mg PO QDAY 04/13/23 12/27/23 History sacubitril 24 mg-valsartan 26 mg 24 - 26 tab PO BID 06/01/23 12/27/23 History tablet (Entresto) amlodipine 2.5 mg tablet 2.5 mg PO QDAY 12/27/23 12/27/23 History carvedilol 25 mg tablet 25 mg PO BID 12/27/23 12/27/23 History furosemide 80 mg tablet 80 mg PO QDAY 12/27/23 12/27/23 History Allergies Allergy/AdvReac Type Severity Reaction Status Date / Time No Known Allergies Allergy Verified 05/31/23 16:02 Exam Vital Signs Temp Pulse Resp BP Pulse Ox O2 Del Method O2 Flow Rate 98.3 F 60 26 H 136/71 H 95 Nasal Cannula 3 12/30/23 12:00 12/30/23 12:00 12/30/23 12:00 12/30/23 12:00 12/30/23 12:00 12/30/23 12:00 12/30/23 12:00 Narrative Exam General: Alert and oriented x3. In mild respiratory distress Eyes: Pupils are equal and reactive to light bilaterally. HEENT: Atraumatic, normocephalic. Elevated JVD. Mucosa moist. Cardiovascular: Normal S1 and S2. Tachycardic and 3/6 systolic murmur heard at the apex radiating to the axilla.. Trace bilateral pitting edema noted Respiratory: No respiratory distress. Bilateral air entry present and absent breath sounds right lower base but occasional crackles noted. Abdomen: Soft, nontender, nondistended. Skin: No rash. Warm to touch. Musculoskeletal: No gross injuries. Able to move all 4 extremities. Neuro: Alert and oriented x3. No focal neuro deficits. Psych: Normal affect and mood Results Labs 12/31/23 05:08 12/31/23 05:08 Labs: Short CBC 12/30/23 Range/Units 05:30 WBC 9.6 (3.6-11.0) Thou/mm3 Hgb 10.8 L (12.0-16.0) g/dL Hct 31.7 L (36.0-46.0) % Plt Count 180 (140-440) Thou/mm3 [facility] 12/30/23 05:30 Sodium 134 L Potassium 3.4 Chloride 104 Carbon Dioxide 19.6 L BUN 55 H Creatinine 2.3 H D Glucose 158 H Calcium 8.5 Liver Function 12/30/23 Range/Units 05:30 Total Bilirubin 0.6 (0.3-1.2) mg/dL AST 34 (0-34) U/L ALT 30 (10-49) U/L Alkaline Phosphatase 72 (46-116) U/L Albumin 3.7 (3.4-4.8) gm/dL Assessment and Plan Additional Assessment & Plan Additional Plan: A 72-year-old male is a 72-year-old female with a past medical history of chronic severe systolic CHF with reduced ejection fraction of 30 to 35% echo done in April 2023 now improved to 40 to 45% on the echo in December 2023, diastolic dysfunction stage II, mild RV systolic dysfunction, moderate pulmonary hypertension, moderate MR, mildly dilated ascending aorta at 3.7 cm, history of CVA, essential hypertension, diabetes mellitus type 2, hyperlipidemia, CKD stage III with a creatinine baseline of around 1.8 to 2.0, COPD secondary to chronic smoking with more than 20 pack years on intermittent oxygen presented to the emergency department for further evaluation of shortness of breath as well as lower extremity edema. 1. Acute metabolic encephalopathy secondary to sepsis from UTI 2. Sepsis secondary to E. coli bacteremia and possible pneumonia 3. UTI secondary to E. coli 4. Acute kidney injury on CKD stage III-IV with a baseline creatinine of 1.8-2.0-mostly secondary to aggressive outpatient diuresis 5. Combined systolic and diastolic congestive heart failure. Previous ejection fraction was 30 to 35% and now improved to 40 to 45% on recent echo in December 2023. Stage II diastolic dysfunction 6. Moderate pulmonary hypertension 7. Valvular heart disease with moderate MR 8. Mildly dilated ascending aorta at 3.7 cm 9. CVA 10. History of COPD secondary to chronic smoking and intermittent oxygen 11. Ex-smoker with more than [id number] smoking history quit 4 years ago 12. Essential hypertension 13. Diabetes mellitus type 2 14. Hyperlipidemia 15. History of NSTEMI previously secondary to supply/demand mismatch Patient admitted for severe sepsis secondary to E. coli bacteremia as well as a UTI and also ruling out pneumonia. IV antibiotics and patient improving slowly. Further treatment and management as per the primary team. Ultrasound of the kidneys performed which showed small right kidney as well as bilateral renal cortical thickening with moderate mild left renal plaque, scar formation and bilateral nonobstructing renal calculi. There was also evidence of possible perinephric stranding on the CT and cystitis with urinary bladder thickening. Regarding her acute kidney injury and heart failure Patient well-known to me from previous admissions and also follows up very closely with me in the clinic almost every month. Patient was being treated aggressively for her severe systolic congestive heart failure and was appropriate treatment for the heart failure with Coreg return for milligrams p.o. twice daily, Entresto 24-26 mg twice daily. Patient was on Lasix 80 mg p.o. twice daily and was aggressively diuresed and was recently changed to Lasix 80 mg once daily. Patient was also placed on Jardiance. Patient was supposed to have a follow-up echo in the office after the aggressive treatment for last 6 months for the heart failure but patient got admitted to the hospital. Patient daughter informed us of the admission. Echocardiogram performed on 12/28/2023 showed normal LV size with mild systolic dysfunction with global hypokinesis. Mild LVH stage II diastolic dysfunction EF of 40 to 45%. Mild RV dilatation with normal RV systolic function estimated RVSP of 57 mmHg. Moderate PAH. Mildly dilated. Aortic root and ascending aorta is also mildly dilated at 3.8 and 4.0 cm. There is moderate MR and TR with mild to moderate AI. Mild PI noted. EF improved from the previous echo in April 2023 which was at 30 to 35%. Recommendations: Patient was started on IV fluids for the acute kidney injury and creatinine improved from 2.8-2.0. Patient was aggressively diuresed as outpatient okay to hold off the Lasix as well as Entresto for now. Once her kidney injury improves patient should be restarted on Lasix at 80 mg once daily and Entresto at the same dose of 24-26 mg twice daily given the mortality benefit with the goal-directed medical therapy. Eventually Jardiance also needs to be restarted Patient blood pressure continues to be high and during the admission as Entresto has been stopped. And also Coreg decreased to 12.5 mg twice daily. Recommend to increase Coreg to 25 mg twice daily for now and continue with amlodipine. Patient also has moderate PAH with moderate valvular heart disease with moderate MR and TR as noted in the echo and will need adequate diuresis as outpatient. Strict input output, daily weights and 2 g sodium diet for now Keep potassium greater than 4 and magnesium greater than 2.0 at all times. Continue telemetry Management of rest of the medical conditions as per primary team and other consultants. Thank you for the consult and allowing me to participate in the care of the patient. Cardiology will continue to follow. Dylan Wallace M.D. Interventional Cardiology
--- NOTE | 2023-12-30 16:08 | PC.SS ---
Update: Physical therapy evaluation remains pending.
[2023-12-30] MEDS: PRAVASTATIN SODIUM 10 MG TABLET PO (21:08)
[2023-12-30] MEDS: hydrOXYzine HCL 25 MG TABLET PO (21:08)
[2023-12-30] MEDS: SODIUM BICARBONATE 650 MG TABLET 325 MG PO (21:08)
[2023-12-31] VITALS (10 sets, daily range): BP systolic 129–176; BP diastolic 65–97; PULSE 55–78; RESP 18–34; TEMP 36.1–37.4; O2SAT 91–99; BMI 30.7
[2023-12-31] MEDS: SODIUM BICARBONATE 650 MG TABLET 325 MG PO ×3 (05:53→21:03)
[2023-12-31 06:13] LABS: Basophils # (Auto) 0.1 Thou/mm3 (0.0-0.2); Basophils % (Auto) 1 % (0-2.5); Eosinophils % (Auto) 0 % (0-10); Hematocrit 32.9 % (36.0-46.0); Hemoglobin 11.3 g/dL (12.0-16.0); Immature Granulocytes % (Auto) 1 % (0-0); Immature Granulocytes Auto 0.08 Thou/mm3 (0.00-0.00); Lymphocytes # (Auto) 1.3 Thou/mm3 (1.0-4.8); Lymphocytes % (Auto) 14 % (10-50); Mean Corpuscular HGB Conc 34.3 g/dl (31.0-37.0); Mean Corpuscular Hemoglobin 29.8 pg (25.0-35.0); Mean Corpuscular Volume 87 fL (80-100); Monocytes # (Auto) 1.1 Thou/mm3 (0.0-0.8); Monocytes % (Auto) 12 % (0-12); Neutrophils # (Auto) 6.6 Thou/mm3 (1.8-7.7); Neutrophils % (Auto) 72 % (37-80); Nucleated Red Blood Cell % 0 /100 WBC (0); Platelet Count 207 Thou/mm3 (140-440); RDW Standard Deviation 48.8 fL (36.4-46.3); Red Blood Count 3.79 Miln/mm3 (4.00-5.20); White Blood Count 9.1 Thou/mm3 (3.6-11.0)
[2023-12-31 06:45] LABS: Alanine Aminotransferase 30 U/L (10-49); Albumin, Serum 3.9 gm/dL (3.4-4.8); Albumin/Globulin Ratio 1.3 (1.2-2.2); Alkaline Phosphatase 80 U/L (46-116); Anion Gap 7 (7-16); Aspartate Amino Transferase 26 U/L (0-34); BUN/Creatinine Ratio 25 Ratio (12-20); Bilirubin,Total 0.6 mg/dL (0.3-1.2); Blood Urea Nitrogen 49 mg/dL (9-23); Calcium 8.8 mg/dL (8.3-10.6); Calcium (Corrected) 8.9 mg/dL (8.5-10.1); Chloride 107 mMol/L (98-107); Globulin 3.1 gm/dL (2.3-3.5); Glucose 165 mg/dL (74-106); Magnesium 2.1 mg/dL (1.6-2.6); Osmolality,Calculated 285 (275-295); Potassium 3.7 mMol/L (3.4-5.1); Sodium 134 mMol/L (136-145); eGFR 26 See Note
[2023-12-31 07:20] LABS: Chloride,Urine Random 32.7 mMol/L (55.0-125.0); Potassium,Urine Random 18 mMol/L (12-62); Sodium,Urine Random 31.8 mMol/L (20.0-110.0)
[2023-12-31] MEDS: INSULIN HUM REGULAR 1 UNIT/0.01 ML (PER UNIT) SC ×4 (07:33→21:03)
--- NOTE | 2023-12-31 07:37 | PD.IMPROG ---
Documentation for date of: 12/31/23 Subjective Subjective Interval history: Patient seen and examined at the bedside. Patient continues to slowly improve from the sepsis. No new cardiac complaints. Blood pressure is better controlled after increasing Coreg to 25 mg twice daily but still systolic around 140-150 mmHg. Kidney function is back to baseline with a creatinine of around 2.0. Entresto Lasix and spironolactone are on hold for now. Patient still continues to have some shortness of breath. Can restart with Lasix 80 mg once daily if the patient starts eating and drinking well. Rest of the medications can be started 8 8. Exam Vital Signs Temp Pulse Resp BP Pulse Ox O2 Del Method O2 Flow Rate 97.7 F 78 25 H 164/90 H 94 L Nasal Cannula 2 12/31/23 04:00 12/31/23 04:00 12/31/23 04:00 12/31/23 04:00 12/31/23 04:00 12/31/23 04:00 12/31/23 04:00 Narrative Exam General: Alert and oriented x3. In mild respiratory distress Eyes: Pupils are equal and reactive to light bilaterally. HEENT: Atraumatic, normocephalic. Elevated JVD. Mucosa moist. Cardiovascular: Normal S1 and S2. Tachycardic and 3/6 systolic murmur heard at the apex radiating to the axilla.. Trace bilateral pitting edema noted Respiratory: No respiratory distress. Bilateral air entry present and absent breath sounds right lower base but occasional crackles noted. Abdomen: Soft, nontender, nondistended. Skin: No rash. Warm to touch. Musculoskeletal: No gross injuries. Able to move all 4 extremities. Neuro: Alert and oriented x3. No focal neuro deficits. Psych: Normal affect and mood Objective Labs 12/31/23 05:08 12/31/23 05:08 Labs: Laboratory Results - last 24 hr 12/31/23 12/31/23 05:08 06:25 WBC 9.1 RBC 3.79 L Hgb 11.3 L Hct 32.9 L MCV 87 MCH 29.8 MCHC 34.3 RDW Std Deviation 48.8 H Plt Count 207 Neut % (Auto) 72 Lymph % (Auto) 14 [place] % (Auto) 12 Eos % (Auto) 0 Baso % (Auto) 1 Neut # (Auto) 6.6 Lymph # (Auto) 1.3 [place] # (Auto) 1.1 H Eos # (Auto) 0.0 Baso # (Auto) 0.1 Immature Gran # (Auto) 0.08 H Absolute Nucleated RBC 0.00 Immature Gran % 1 H Nucleated RBC % 0 Sodium 134 L Potassium 3.7 Chloride 107 Carbon Dioxide 20.0 Anion Gap 7 BUN 49 H Creatinine 2.0 H Estim Creat Clear Calc 25.0 L eGFR 26 L BUN/Creatinine Ratio 25 H Glucose 165 H Calculated Osmolality 285 Calcium 8.8 Corrected Calcium 8.9 Magnesium 2.1 Total Bilirubin 0.6 AST 26 ALT 30 Alkaline Phosphatase 80 Total Protein 7.0 Albumin 3.9 Globulin 3.1 Albumin/Globulin Ratio 1.3 Ur Random Sodium 31.8 Ur Random Potassium 18 Ur Random Chloride 32.7 L Assessment & Plan A&P Narrative A 72-year-old male is a 72-year-old female with a past medical history of chronic severe systolic CHF with reduced ejection fraction of 30 to 35% echo done in April 2023 now improved to 40 to 45% on the echo in December 2023, diastolic dysfunction stage II, mild RV systolic dysfunction, moderate pulmonary hypertension, moderate MR, mildly dilated ascending aorta at 3.7 cm, history of CVA, essential hypertension, diabetes mellitus type 2, hyperlipidemia, CKD stage III with a creatinine baseline of around 1.8 to 2.0, COPD secondary to chronic smoking with more than 20 pack years on intermittent oxygen presented to the emergency department for further evaluation of shortness of breath as well as lower extremity edema. 1. Acute metabolic encephalopathy secondary to sepsis from UTI 2. Sepsis secondary to E. coli bacteremia and possible pneumonia 3. UTI secondary to E. coli 4. Acute kidney injury on CKD stage III-IV with a baseline creatinine of 1.8-2.0-mostly secondary to aggressive outpatient diuresis 5. Combined systolic and diastolic congestive heart failure. Previous ejection fraction was 30 to 35% and now improved to 40 to 45% on recent echo in December 2023. Stage II diastolic dysfunction 6. Moderate pulmonary hypertension 7. Valvular heart disease with moderate MR 8. Mildly dilated ascending aorta at 3.7 cm 9. CVA 10. History of COPD secondary to chronic smoking and intermittent oxygen 11. Ex-smoker with more than [id number] smoking history quit 4 years ago 12. Essential hypertension 13. Diabetes mellitus type 2 14. Hyperlipidemia 15. History of NSTEMI previously secondary to supply/demand mismatch Patient admitted for severe sepsis secondary to E. coli bacteremia as well as a UTI and also ruling out pneumonia. IV antibiotics and patient improving slowly. Further treatment and management as per the primary team. Ultrasound of the kidneys performed which showed small right kidney as well as bilateral renal cortical thickening with moderate mild left renal plaque, scar formation and bilateral nonobstructing renal calculi. There was also evidence of possible perinephric stranding on the CT and cystitis with urinary bladder thickening. Regarding her acute kidney injury and heart failure Patient well-known to me from previous admissions and also follows up very closely with me in the clinic almost every month. Patient was being treated aggressively for her severe systolic congestive heart failure and was appropriate treatment for the heart failure with Coreg return for milligrams p.o. twice daily, Entresto 24-26 mg twice daily. Patient was on Lasix 80 mg p.o. twice daily and was aggressively diuresed and was recently changed to Lasix 80 mg once daily. Patient was also placed on Jardiance. Patient was supposed to have a follow-up echo in the office after the aggressive treatment for last 6 months for the heart failure but patient got admitted to the hospital. Patient daughter informed us of the admission. Echocardiogram performed on 12/28/2023 showed normal LV size with mild systolic dysfunction with global hypokinesis. Mild LVH stage II diastolic dysfunction EF of 40 to 45%. Mild RV dilatation with normal RV systolic function estimated RVSP of 57 mmHg. Moderate PAH. Mildly dilated. Aortic root and ascending aorta is also mildly dilated at 3.8 and 4.0 cm. There is moderate MR and TR with mild to moderate AI. Mild PI noted. EF improved from the previous echo in April 2023 which was at 30 to 35%. Recommendations: Patient was started on IV fluids for the acute kidney injury and creatinine improved from 2.8-2.0. Patient was aggressively diuresed as outpatient okay to hold off the Lasix as well as Entresto for now. Once her kidney injury improves patient should be restarted on Lasix at 80 mg once daily and Entresto at the same dose of 24-26 mg twice daily given the mortality benefit with the goal-directed medical therapy. Eventually Jardiance also needs to be restarted Patient blood pressure continues to be high and during the admission as Entresto has been stopped. And also Coreg decreased to 12.5 mg twice daily. Recommend to increase Coreg to 25 mg twice daily for now and continue with amlodipine. Patient also has moderate PAH with moderate valvular heart disease with moderate MR and TR as noted in the echo and will need adequate diuresis as outpatient. Strict input output, daily weights and 2 g sodium diet for now Keep potassium greater than 4 and magnesium greater than 2.0 at all times. Continue telemetry 12/31/2023: Blood pressure is better controlled after increasing Coreg to 25 mg twice daily but still systolic around 140-150 mmHg. Kidney function is back to baseline with a creatinine of around 2.0. Entresto Lasix and spironolactone are on hold for now. Patient still continues to have some shortness of breath. Can restart with Lasix 80 mg once daily if the patient starts eating and drinking well. Rest of the medications can be started 8 8. Management of rest of the medical conditions as per primary team and other consultants. Thank you for the consult and allowing me to participate in the care of the patient. Cardiology will continue to follow. Dylan Wallace M.D. Interventional Cardiology Time Spent With Patient Time: Total time spent is greater than 50% in coordination of care (as documented) at patient's floor/unit and/or counseling patient:
[2023-12-31] MEDS: carVEDILOL 12.5 MG TABLET 25 MG PO ×2 (08:57→17:30)
[2023-12-31] MEDS: cefTRIAXone/D5w 1gm IV premix 50 ML IV (08:58)
[2023-12-31] MEDS: amLODIPine BESYLATE 2.5 MG TABLET PO (08:58)
[2023-12-31] MEDS: CLOPIDOGREL BISULFATE 75 MG TABLET PO (08:58)
[2023-12-31] MEDS: ESCITALOPRAM OXALATE 10 MG TABLET PO (08:58)
[2023-12-31] MEDS: DOXYCYCLINE INJ 100 MG in SODIUM CHLORIDE 0.9% (P) 100 ML IV (10:20)
--- NOTE | 2023-12-31 11:33 | PD.NEPHPROG ---
Documentation for date of: 12/31/23 Subjective Subjective Interval history: Ms. Echols is a 73-year-old lady with history of hypertension, dyslipidemia, congestive heart failure, chronic kidney disease stage IIIb, history of stroke, anxiety was brought to the emergency department by her daughter with confusion fever and a significant weakness in the lower extremities. In the ER patient was noted to have UTI and sepsis and admitted to telemetry. Patient is a poor historian and chart review done. No family around. In the emergency department-Tmax 103, heart rate 80, blood pressure 159/72. EKG showed right bundle branch block. Patient under the care of Dr. Thuan Murrieta. Last ejection fraction 30 to 35%. WBC 16, BUN 62, creatinine 2.7 with a GFR of 18. (Last month her creatinine was 1.9), BNP 2395, Pro-Billy 30.8, lactic acid 1.2, urinalysis shows significant pyuria. Chest x-ray questionable pneumonia in the lung base. Patient was started on ceftriaxone, azithromycin and admitted to telemetry. Renal consultation requested in view of acute renal failure. Home medications included Jardiance, pravastatin, hydroxyzine, Lasix 80 mg p.o. daily, Lexapro, Entresto, amlodipine, carvedilol, Plavix. 12/29/2023 patient currently seen in telemetry. More alert and awake although still seems to have some confusion. Not sure what her baseline is. No family around. WBC improved to 10.2, hemoglobin 12.3, platelets 185. Sodium 135, potassium 3.6, BUN 68, creatinine 2.8, uric acid 8.2, AST 48, albumin 4, PTH 105.5 urine sodium less than 15 12/31/2023 patient currently seen in telemetry. Daughter at bedside. She had several questions which were answered to her satisfaction. Creatinine 2.0 with a GFR 26. Patient more alert and awake although still having some memory lapses. Suspect underlying dementia Review of Systems Review of Systems Narrative Review of Systems: Limited due to her mental status. Patient still seems to be slow in responding. Denies any fever or chills. Denies any abdominal pain. Exam Vital Signs Temp Pulse Resp BP Pulse Ox O2 Del Method O2 Flow Rate 36.1 C 69 18 176/96 H 98 Nasal Cannula 3 12/31/23 08:00 12/31/23 08:58 12/31/23 08:00 12/31/23 08:58 12/31/23 08:00 12/31/23 08:00 12/31/23 08:00 Narrative Exam GENERAL APPEARANCE: Patient seems to be comfortable, adequately hydrated and nourished. Patient currently seen in telemetry. HEENT: EOMI, PERRLA NECK: Neck supple, no JVD or bruit CARDIOVASCULAR: Heart regular, no murmurs LUNGS/CHEST: Chest clear to auscultation. No rales, rhonchi, wheezing ABDOMEN: Soft, nontender, nondistended. No masses. Normal bowel sounds. EXTREMITIES: No edema, clubbing or cyanosis. SKIN: Skin exam normal without any rashes MUSCULOSKELETAL: In bed NEUROLOGICAL : able to move her extremities, seems to have some memory lapses Objective Labs 01/01/24 04:35 01/01/24 04:35 Labs: Laboratory Results - last 24 hr 12/31/23 12/31/23 05:08 06:25 WBC 9.1 RBC 3.79 L Hgb 11.3 L Hct 32.9 L MCV 87 MCH 29.8 MCHC 34.3 RDW Std Deviation 48.8 H Plt Count 207 Neut % (Auto) 72 Lymph % (Auto) 14 [place] % (Auto) 12 Eos % (Auto) 0 Baso % (Auto) 1 Neut # (Auto) 6.6 Lymph # (Auto) 1.3 [place] # (Auto) 1.1 H Eos # (Auto) 0.0 Baso # (Auto) 0.1 Immature Gran # (Auto) 0.08 H Absolute Nucleated RBC 0.00 Immature Gran % 1 H Nucleated RBC % 0 Sodium 134 L Potassium 3.7 Chloride 107 Carbon Dioxide 20.0 Anion Gap 7 BUN 49 H Creatinine 2.0 H Estim Creat Clear Calc 25.0 L eGFR 26 L BUN/Creatinine Ratio 25 H Glucose 165 H Calculated Osmolality 285 Calcium 8.8 Corrected Calcium 8.9 Magnesium 2.1 Total Bilirubin 0.6 AST 26 ALT 30 Alkaline Phosphatase 80 Total Protein 7.0 Albumin 3.9 Globulin 3.1 Albumin/Globulin Ratio 1.3 Ur Random Sodium 31.8 Ur Random Potassium 18 Ur Random Chloride 32.7 L Assessment & Plan Assessment and plan (1) ORA (acute kidney injury): Status: Acute Assessment and plan: ORA secondary to prerenal azotemia. Patient has decreased p.o. intake, on Entresto, high doses of Lasix along with Jardiance. Hold all the medications for now. Gentle IV fluids recommended. CT abdomen showed no hydronephrosis. Urine sodium less than 10. Despite BNP elevated-clinically looks dehydrated. 12/30 1 L IV fluids given. Creatinine Improved to 2.0. Off IV fluids. Can resume low-dose diuretics. Clinically looks euvolemic. (2) Acute UTI: Status: Acute Assessment and plan: On broad-spectrum antibiotics (3) Community acquired pneumonia: Status: Acute Assessment and plan: On antibiotics (4) Sepsis: Status: Acute Assessment and plan: on IV antibiotics. Sepsis resolved (5) Hypertension: Status: Acute Assessment and plan: Blood pressure seems to be stable. Hold off on Entresto, Lasix (6) Congestive heart failure: Status: Acute Assessment and plan: Looks euvolemic. Can restart low-dose diuretics. Plan of care discussed with primary team. Additional Assessment & Plan Additional Plan: Thank you Dr. Freed for allowing me to participate in the care of Ms. Echols Quality - progress note Quality Measures Quality Measures: VTE prophylaxis Reason for Continued Stay Reason for Continued Stay: further monitoring
--- NOTE | 2023-12-31 13:16 | ESPR_ITS ---
<Statement entered by Ramiro Johnson MD - 01/06/24 15:25> I Ramiro Johnson MD reviewed the note and agree with the resident's assessment & plan with exceptions as below. I have personally reviewed labs, imaging, home meds/prior records, examined the patient, formulated and discussed management plan with the IM team. Documentation for date of: 12/31/23 Subjective Subjective Interval history: Patient seen and examined at bedside this morning. Labs, vitals reviewed. CT A/P did not show any abscess or obstructive stone. Patient afebrile >24 hours. Creatinine noted to be improving. Will discontinue doxycycline for now, however if patient spikes a fever, will repeat blood cultures and start vancomycin. Patient continues to states she is in no acute distress, however daughter has noted occasional respiratory distress. PT eval pending. Exam Vital Signs Temp Pulse Resp BP Pulse Ox O2 Del Method O2 Flow Rate 97.6 F 68 24 H 150/82 H 99 Nasal Cannula 3 12/31/23 12:00 12/31/23 12:00 12/31/23 12:00 12/31/23 12:00 12/31/23 12:00 12/31/23 12:00 12/31/23 12:00 Narrative Exam Gen: AAOx3, pleasant to speak with HEENT: NCAT, MMM, on NC, cold sore on lip CVS: normal S1, S2. RRR. No MRG Resp: Diminished on left, mild crackles appreciated; mildly tachypneic Abd: soft, non-tender, non-distended. BS+ in all 4 quadrants MSK: Good ROM in BUE & BLE. No edema or rash. Neuro: CN II-XII grossly intact. No focal deficits appreciated Objective Labs 12/31/23 05:08 12/31/23 05:08 Labs: Laboratory Results - last 24 hr 12/31/23 12/31/23 05:08 06:25 WBC 9.1 RBC 3.79 L Hgb 11.3 L Hct 32.9 L MCV 87 MCH 29.8 MCHC 34.3 RDW Std Deviation 48.8 H Plt Count 207 Neut % (Auto) 72 Lymph % (Auto) 14 [place] % (Auto) 12 Eos % (Auto) 0 Baso % (Auto) 1 Neut # (Auto) 6.6 Lymph # (Auto) 1.3 [place] # (Auto) 1.1 H Eos # (Auto) 0.0 Baso # (Auto) 0.1 Immature Gran # (Auto) 0.08 H Absolute Nucleated RBC 0.00 Immature Gran % 1 H Nucleated RBC % 0 Sodium 134 L Potassium 3.7 Chloride 107 Carbon Dioxide 20.0 Anion Gap 7 BUN 49 H Creatinine 2.0 H Estim Creat Clear Calc 25.0 L eGFR 26 L BUN/Creatinine Ratio 25 H Glucose 165 H Calculated Osmolality 285 Calcium 8.8 Corrected Calcium 8.9 Magnesium 2.1 Total Bilirubin 0.6 AST 26 ALT 30 Alkaline Phosphatase 80 Total Protein 7.0 Albumin 3.9 Globulin 3.1 Albumin/Globulin Ratio 1.3 Ur Random Sodium 31.8 Ur Random Potassium 18 Ur Random Chloride 32.7 L Quality Measures Quality Measures VTE prophylaxis Advance care planning discussed with:: child Assessment & Plan Assessment Current Active Medications: Generic Name Dose Route Start Last Admin Trade Name Freq PRN Reason Stop Dose Admin Acetaminophen 650 mg 12/27/23 20:22 12/30/23 04:21 Acetaminophen 325 Mg Tablet PO 01/26/24 20:21 650 mg Q6H PRN Administration Fever >101.5 Amlodipine Besylate 2.5 mg 12/31/23 09:00 12/31/23 08:58 Amlodipine Besylate 2.5 Mg Tablet PO 01/30/24 08:59 2.5 mg QDAY REED Administration Carvedilol 25 mg 12/31/23 08:05 12/31/23 08:57 Carvedilol 12.5 Mg Tablet PO 01/30/24 08:04 25 mg BIDWM REED Administration Clopidogrel Bisulfate 75 mg 12/28/23 09:00 12/31/23 08:58 Clopidogrel Bisulfate 75 Mg Tablet PO 01/27/24 08:59 75 mg QDAY REED Administration Dextrose 25 ml 12/27/23 20:25 Dextrose 50%-Water Inj 50 Ml Syringe IV 01/26/24 20:24 Q15MIN PRN BG 50-70 responsive npo pt Dextrose 50 ml 12/27/23 20:25 Dextrose 50%-Water Inj 50 Ml Syringe IV 01/26/24 20:24 Q15MIN PRN BG <50 OR BG <70 & pt unresponsive Escitalopram Oxalate 10 mg 12/31/23 09:00 12/31/23 08:58 Escitalopram Oxalate 10 Mg Tablet PO 01/30/24 08:59 10 mg QDAY REED Administration Glucagon 1 mg 12/27/23 20:25 Glucagon Inj 1 Mg Vial IM Q15MIN PRN BG <70, and no IV access Heparin Sodium (Porcine) 5,000 unit 12/27/23 22:00 12/31/23 05:53 Heparin Sod Inj 5000 Unit/Ml Vial SC 01/10/24 21:59 Not Given Q8HR REED Hydroxyzine HCl 25 mg 12/30/23 20:07 12/30/23 21:08 Hydroxyzine Hcl 25 Mg Tablet PO 01/29/24 20:06 25 mg HS PRN Administration Sleep Ceftriaxone Sodium/Dextrose 50 mls @ 100 mls/hr 12/29/23 10:54 12/31/23 08:58 Rocephin/D5w 1gm Iv Premix IV 01/05/24 10:53 100 mls/hr QDAY REED Administration Insulin Human Regular 0 unit 12/27/23 21:00 12/31/23 12:13 Insulin Hum Regular 1 Unit/0.01 Ml (Per Unit) SC 01/26/24 20:59 2 unit ACHS REED Administration Protocol Pravastatin Sodium 10 mg 12/27/23 21:00 12/30/23 21:08 Pravastatin Sodium 10 Mg Tablet PO 01/26/24 20:59 10 mg HS REED Administration Sodium Bicarbonate 325 mg 12/30/23 22:00 12/31/23 05:53 Sodium Bicarbonate 650 Mg Tablet PO 01/29/24 21:59 325 mg TID REED Administration Plan Patient is a 73-year-old female with HFrEF with improved EF 40-45%, CKD stage IV, history of cardiorenal syndrome, T2DM, HTN, history of CVA, HLD who presented with encephalopathy and fever. Patient was admitted for sepsis secondary to E. coli bacteremia, UTI secondary to E. coli, & possible community- acquired pneumonia. Additionally labs were significant for ORA on CKD. #Acute encephalopathy, likely infectious from sepsis, resolved #Sepsis, secondary to #E. coli bacteremia #UTI secondary to E. coli Initial head CT was negative. Patient AAOx3 30 cc per kg bolus per sepsis protocol was not given due to HFrEF; received 500cc NS bolus and started on 1L maintenance IVF Patient continues to have fevers, however leukocytosis has resolved => afebrile >[address] abdomen pelvis: Perinephric stranding and cystitis. Blood & urine cultures grew E. coli, sensitive to Rocephin Cefepime was de-escalated to Rocephin; doxycycline discontinued If fevers return, repeat blood cultures and start vancomycin #Concern for Community-acquired pneumonia As seen on CXR DDx includes pulmonary edema Continue Rocephin Doxycycline discontinued #ORA on CKD 4, improving #History of cardiorenal syndrome #Elevated uric acid #Non-anion gap metabolic acidosis, improving Creatinine on admission was 2.7, baseline appears to be 1.9 Continue to hold home nephrotoxic medications, including Entresto, Lasix, Jardiance As patient takes Lasix at home, FEUrea was calculated and noted to be 37.3%, suggesting intrinsic cause of ORA => creatinine downtrending, 2.3 Renal ultrasound: Small right kidney, bilateral renal cortical thinning, moderate right mild left renal parenchymal scar formation. Bilateral nonobstructing renal calculi. No hydronephrosis Nephro consulted, appreciate recommendations: Can start sodium bicarbonate for metabolic acidosis Uric acid 8.2, no signs of gout noted, and patient denies any symptoms CO2 on CHEM panel 20, anion gap 7. Repeat urine electrolytes were ordered, however urine was sent after bicarb given. Will continue with sodium bicarb at this time and continue to monitor CHEM panel #History of HFrEF #HTN #NSTEMI, likely type II Clinically, patient appears dry, although BNP is elevated Strict I's and O's Echo was ordered, and revealed improved EF, now 40-45%. Echo also shows mild systolic dysfunction with global hypokinesis and LVH. Stage II diastolic dysfunction. Mild RV dilatation, with normal systolic function. RVSP 57 mmHg. RV mildly dilated. Troponin mildly elevated, with delta noted. Patient denies chest pain. Likely type II secondary to infection Will hold Entresto, Jardiance, Lasix due to ORA Continue Coreg, resumed home dose and home amlodipine. Cardio consulted, appreciate recs: Resume Entresto, Jardiance, Lasix on discharge #T2DM A1c 6.2 Continue SSI with hypoglycemic protocol in place FBG within goal 140-180 #HLD #History of CVA Continue home Plavix & pravastatin #Insomnia #Anxiety Continue home Atarax and Lexapro Dispo: Patient remains admitted for treatment of sepsis secondary to E. coli bacteremia and UTI; fevers resolved, antibiotics de-escalated; continue to monitor overnight and consider discharge in 24 to 48 hours, if patient stable. GI PPx: None DVT PPx: Heparin Diet: Carb consistent CODE STATUS: Full code Patient seen and care discussed with my attending Dr. Johnson. Purnima Talavera MD PGY-2
[2023-12-31] MEDS: HEPARIN SOD INJ 5000 UNIT/ML VIAL SC ×2 (16:35→21:03)
[2023-12-31] MEDS: PRAVASTATIN SODIUM 10 MG TABLET PO (21:03)
[2024-01-01] VITALS (12 sets, daily range): BP systolic 130–151; BP diastolic 65–90; PULSE 50–60; RESP 19–30; TEMP 36.6–37.2; O2SAT 94–99
[2024-01-01] MEDS: SODIUM BICARBONATE 650 MG TABLET 325 MG PO ×3 (05:37→21:11)
[2024-01-01] MEDS: HEPARIN SOD INJ 5000 UNIT/ML VIAL SC ×3 (05:37→21:11)
[2024-01-01 06:02] LABS: Basophils # (Auto) 0.1 Thou/mm3 (0.0-0.2); Basophils % (Auto) 1 % (0-2.5); Eosinophils # (Auto) 0.1 Thou/mm3 (0.0-0.5); Eosinophils % (Auto) 1 % (0-10); Hematocrit 31.9 % (36.0-46.0); Hemoglobin 10.9 g/dL (12.0-16.0); Immature Granulocytes % (Auto) 2 % (0-0); Immature Granulocytes Auto 0.11 Thou/mm3 (0.00-0.00); Lymphocytes # (Auto) 1.8 Thou/mm3 (1.0-4.8); Lymphocytes % (Auto) 24 % (10-50); Mean Corpuscular HGB Conc 34.2 g/dl (31.0-37.0); Mean Corpuscular Hemoglobin 29.8 pg (25.0-35.0); Mean Corpuscular Volume 87 fL (80-100); Monocytes % (Auto) 14 % (0-12); Neutrophils # (Auto) 4.2 Thou/mm3 (1.8-7.7); Neutrophils % (Auto) 58 % (37-80); Nucleated Red Blood Cell # 0.02 Thou/mm3 (0.00-0.00); Nucleated Red Blood Cell % 0 /100 WBC (0); Platelet Count 199 Thou/mm3 (140-440); RDW Standard Deviation 50.1 fL (36.4-46.3); Red Blood Count 3.66 Miln/mm3 (4.00-5.20); White Blood Count 7.2 Thou/mm3 (3.6-11.0)
[2024-01-01 06:30] LABS: Alanine Aminotransferase 30 U/L (10-49); Albumin, Serum 3.5 gm/dL (3.4-4.8); Albumin/Globulin Ratio 1.2 (1.2-2.2); Alkaline Phosphatase 68 U/L (46-116); Anion Gap 7 (7-16); Aspartate Amino Transferase 28 U/L (0-34); BUN/Creatinine Ratio 26 Ratio (12-20); Bilirubin,Total 0.4 mg/dL (0.3-1.2); Blood Urea Nitrogen 46 mg/dL (9-23); Calcium 8.6 mg/dL (8.3-10.6); Carbon Dioxide 22.9 mMol/L (20.0-31.0); Chloride 108 mMol/L (98-107); Creatinine (Component) 1.8 mg/dL (0.6-1.3); Globulin 2.9 gm/dL (2.3-3.5); Glucose 110 mg/dL (74-106); Magnesium 2.1 mg/dL (1.6-2.6); Osmolality,Calculated 288 (275-295); Potassium 3.9 mMol/L (3.4-5.1); Sodium 138 mMol/L (136-145); Total Protein 6.4 gm/dL (5.7-8.2); eGFR 30 See Note
[2024-01-01] MEDS: INSULIN HUM REGULAR 1 UNIT/0.01 ML (PER UNIT) SC ×2 (07:33→17:14)
--- NOTE | 2024-01-01 07:37 | PD.RESPRO ---
Documentation for date of: 01/01/24 Exam Vital Signs Temp Pulse Resp BP Pulse Ox O2 Del Method O2 Flow Rate 98.9 F 56 L 30 H 141/90 H 97 Nasal Cannula 3 01/01/24 04:00 01/01/24 04:00 01/01/24 04:00 01/01/24 04:00 01/01/24 04:00 01/01/24 04:00 01/01/24 04:00 Objective Labs 01/01/24 04:35 01/01/24 04:35 Labs: Laboratory Results - last 24 hr 01/01/24 04:35 WBC 7.2 RBC 3.66 L Hgb 10.9 L Hct 31.9 L MCV 87 MCH 29.8 MCHC 34.2 RDW Std Deviation 50.1 H Plt Count 199 Neut % (Auto) 58 Lymph % (Auto) 24 Hendricks % (Auto) 14 H Eos % (Auto) 1 Baso % (Auto) 1 Neut # (Auto) 4.2 Lymph # (Auto) 1.8 Hendricks # (Auto) 1.0 H Eos # (Auto) 0.1 Baso # (Auto) 0.1 Immature Gran # (Auto) 0.11 H Absolute Nucleated RBC 0.02 H Immature Gran % 2 H Nucleated RBC % 0 Sodium 138 Potassium 3.9 Chloride 108 H Carbon Dioxide 22.9 Anion Gap 7 BUN 46 H Creatinine 1.8 H Estim Creat Clear Calc 28.0 L eGFR 30 L BUN/Creatinine Ratio 26 H Glucose 110 H D Calculated Osmolality 288 Calcium 8.6 Corrected Calcium 9.0 Magnesium 2.1 Total Bilirubin 0.4 AST 28 ALT 30 Alkaline Phosphatase 68 Total Protein 6.4 Albumin 3.5 Globulin 2.9 Albumin/Globulin Ratio 1.2 Quality Measures Quality Measures VTE prophylaxis Assessment & Plan Assessment Current Active Medications: Generic Name Dose Route Start Last Admin Trade Name Freq PRN Reason Stop Dose Admin Acetaminophen 650 mg 12/27/23 20:22 12/30/23 04:21 Acetaminophen 325 Mg Tablet PO 01/26/24 20:21 650 mg Q6H PRN Administration Fever >101.5 Amlodipine Besylate 2.5 mg 12/31/23 09:00 12/31/23 08:58 Amlodipine Besylate 2.5 Mg Tablet PO 01/30/24 08:59 2.5 mg QDAY REED Administration Carvedilol 25 mg 12/31/23 08:05 06/22/24 17:30 Carvedilol 12.5 Mg Tablet PO 01/30/24 08:04 25 mg BIDWM REED Administration Clopidogrel Bisulfate 75 mg 12/28/23 09:00 12/31/23 08:58 Clopidogrel Bisulfate 75 Mg Tablet PO 01/27/24 08:59 75 mg QDAY REED Administration Dextrose 25 ml 12/27/23 20:25 Dextrose 50%-Water Inj 50 Ml Syringe IV 01/26/24 20:24 Q15MIN PRN BG 50-70 responsive npo pt Dextrose 50 ml 12/27/23 20:25 Dextrose 50%-Water Inj 50 Ml Syringe IV 01/26/24 20:24 Q15MIN PRN BG <50 OR BG <70 & pt unresponsive Escitalopram Oxalate 10 mg 12/31/23 09:00 12/31/23 08:58 Escitalopram Oxalate 10 Mg Tablet PO 01/30/24 08:59 10 mg QDAY REED Administration Glucagon 1 mg 12/27/23 20:25 Glucagon Inj 1 Mg Vial IM Q15MIN PRN BG <70, and no IV access Heparin Sodium (Porcine) 5,000 unit 12/27/23 22:00 01/01/24 05:37 Heparin Sod Inj 5000 Unit/Ml Vial SC 01/10/24 21:59 5,000 unit Q8HR REED Administration Hydroxyzine HCl 25 mg 12/30/23 20:07 12/30/23 21:08 Hydroxyzine Hcl 25 Mg Tablet PO 01/29/24 20:06 25 mg HS PRN Administration Sleep Ceftriaxone Sodium/Dextrose 50 mls @ 100 mls/hr 12/29/23 10:54 12/31/23 08:58 Rocephin/D5w 1gm Iv Premix IV 01/05/24 10:53 100 mls/hr QDAY REED Administration Insulin Human Regular 0 unit 12/27/23 21:00 12/31/23 21:03 Insulin Hum Regular 1 Unit/0.01 Ml (Per Unit) SC 01/26/24 20:59 1 unit ACHS REED Administration Protocol Pravastatin Sodium 10 mg 12/27/23 21:00 12/31/23 21:03 Pravastatin Sodium 10 Mg Tablet PO 01/26/24 20:59 10 mg HS REED Administration Sodium Bicarbonate 325 mg 12/30/23 22:00 01/01/24 05:37 Sodium Bicarbonate 650 Mg Tablet PO 01/29/24 21:59 325 mg TID REED Administration
[2024-01-01] MEDS: CLOPIDOGREL BISULFATE 75 MG TABLET PO (08:43)
[2024-01-01] MEDS: ESCITALOPRAM OXALATE 10 MG TABLET PO (08:43)
[2024-01-01] MEDS: cefTRIAXone/D5w 1gm IV premix 50 ML IV (08:44)
[2024-01-01] MEDS: amLODIPine BESYLATE 2.5 MG TABLET PO (08:44)
[2024-01-01] MEDS: carVEDILOL 12.5 MG TABLET 25 MG PO ×2 (08:44→17:32)
--- NOTE | 2024-01-01 11:07 | PD.RESDS ---
Planned Discharge Date 01/01/24 DS: Providers Provider Date of admission: 12/27/23 20:22 Primary care physician: Collins Bender Admitting Provider: Gurvinder Morris MD Attending Provider on Admission: Robert Wang MD Consults: 12/27/23 23:10 Referral Smoking Cessation Counseling Routine Comment: Smoking Cessation Education Needed 12/28/23 05:00 Consult to Nephrology Stat Comment: Consulting Provider: Asif Al 12/30/23 09:29 Referral Physical Therapy Routine Comment: Physician Instructions: 12/31/23 14:50 Consult to Cardiology Routine Comment: Consulting Provider: Dylan Wallace Attending Provider on DC: Jolynn Huang MD Discharging Provider: Jolynn Huang MD Hospital Course Hospital Course Hospital course: Patient seen and examined at the bedside. Patient continues to slowly improve from the sepsis. No new cardiac complaints. Blood pressure is better controlled after increasing Coreg to 25 mg twice daily but still systolic around 140-150 mmHg. Kidney function is back to baseline with a creatinine of around 2.0. Entresto Lasix and spironolactone are on hold for now. Patient still continues to have some shortness of breath. Can restart with Lasix 80 mg once daily if the patient starts eating and drinking well. Rest of the medications can be started 8 8. Time Spent with Patient Time attestation: Total time spent providing and/or coordinating discharge services: Exam Vital Signs Temp Pulse Resp BP Pulse Ox O2 Del Method O2 Flow Rate 97.8 F 56 L 21 H 151/71 H 96 Nasal Cannula 1 01/01/24 07:50 01/01/24 08:44 01/01/24 07:50 01/01/24 08:44 01/01/24 07:50 01/01/24 07:50 01/01/24 07:50 Discharge Plan Plan Patient condition on transfer: Stable Prescriptions/Referrals Prescriptions/Med Rec: No Action hydroxyzine HCl 25 mg tablet 25 mg PO HS PRN (Reason: Sleep) escitalopram oxalate 10 mg tablet 10 mg PO QDAY Jardiance 25 mg tablet 25 mg PO QDAY pravastatin 20 mg tablet 20 mg PO QDAY clopidogrel 75 mg tablet 75 mg PO QDAY Entresto 24-26 mg tablet 24 - 26 tab PO BID Patient Comments: TAKE 1 TABLET BY MOUTH TWICE A DAY FOR ONE MONTH carvedilol 25 mg Tablet 25 mg PO BID Rx Instructions: must administer with a meal/food amlodipine 2.5 mg Tablet 2.5 mg PO QDAY furosemide 80 mg Tablet 80 mg PO QDAY Referrals: Collins Bender [Primary Care Provider] - Patient/Caregiver Discharge Instructions Print Language: Greenlandic
--- NOTE | 2024-01-01 13:20 | ESPR_ITS ---
Documentation for date of: 01/01/24 Subjective Subjective Interval history: Ms. Echols is a 73-year-old lady with history of hypertension, dyslipidemia, congestive heart failure, chronic kidney disease stage IIIb, history of stroke, anxiety was brought to the emergency department by her daughter with confusion fever and a significant weakness in the lower extremities. In the ER patient was noted to have UTI and sepsis and admitted to telemetry. Patient is a poor historian and chart review done. No family around. In the emergency department-Tmax 103, heart rate 80, blood pressure 159/72. EKG showed right bundle branch block. Patient under the care of Dr. Thuan Murrieta. Last ejection fraction 30 to 35%. WBC 16, BUN 62, creatinine 2.7 with a GFR of 18. (Last month her creatinine was 1.9), BNP 2395, Pro-Billy 30.8, lactic acid 1.2, urinalysis shows significant pyuria. Chest x-ray questionable pneumonia in the lung base. Patient was started on ceftriaxone, azithromycin and admitted to telemetry. Renal consultation requested in view of acute renal failure. Home medications included Jardiance, pravastatin, hydroxyzine, Lasix 80 mg p.o. daily, Lexapro, Entresto, amlodipine, carvedilol, Plavix. 12/29/2023 patient currently seen in telemetry. More alert and awake although still seems to have some confusion. Not sure what her baseline is. No family around. WBC improved to 10.2, hemoglobin 12.3, platelets 185. Sodium 135, potassium 3.6, BUN 68, creatinine 2.8, uric acid 8.2, AST 48, albumin 4, PTH 105.5 urine sodium less than 15 01/01/2024 patient currently seen in telemetry. Family at bedside. They had several questions which were answered to her satisfaction. Creatinine 1.8 with a GFR 30. Patient more alert and awake although still having some memory lapses. Suspect underlying dementia. Primary team started patient on Lasix 40 mg p.o. daily. Clinically looks rather euvolemic. Review of Systems Review of Systems Narrative Review of Systems: Patient denies any chest pain, shortness of breath. Denies any nausea, vomiting. More alert and awake denies any fever or chills. Denies any abdominal pain. Exam Vital Signs Temp Pulse Resp BP Pulse Ox O2 Del Method O2 Flow Rate 37.1 C 58 L 24 H 148/78 H 95 Room Air 1 01/01/24 15:53 01/01/24 15:53 01/01/24 15:53 01/01/24 15:53 01/01/24 15:53 01/01/24 15:53 01/01/24 07:50 Narrative Exam GENERAL APPEARANCE: Patient seems to be comfortable, adequately hydrated and nourished. Patient currently seen in telemetry. HEENT: EOMI, PERRLA NECK: Neck supple, no JVD or bruit CARDIOVASCULAR: Heart regular, no murmurs LUNGS/CHEST: Fine crackles at the bases ABDOMEN: Soft, nontender, nondistended. No masses. Normal bowel sounds. EXTREMITIES: No edema, clubbing or cyanosis. SKIN: Skin exam normal without any rashes MUSCULOSKELETAL: In bed NEUROLOGICAL : able to move her extremities, seems to have some memory lapses Objective Labs 01/01/24 04:35 01/01/24 04:35 Labs: Laboratory Results - last 24 hr 01/01/24 04:35 WBC 7.2 RBC 3.66 L Hgb 10.9 L Hct 31.9 L MCV 87 MCH 29.8 MCHC 34.2 RDW Std Deviation 50.1 H Plt Count 199 Neut % (Auto) 58 Lymph % (Auto) 24 [place] % (Auto) 14 H Eos % (Auto) 1 Baso % (Auto) 1 Neut # (Auto) 4.2 Lymph # (Auto) 1.8 [place] # (Auto) 1.0 H Eos # (Auto) 0.1 Baso # (Auto) 0.1 Immature Gran # (Auto) 0.11 H Absolute Nucleated RBC 0.02 H Immature Gran % 2 H Nucleated RBC % 0 Sodium 138 Potassium 3.9 Chloride 108 H Carbon Dioxide 22.9 Anion Gap 7 BUN 46 H Creatinine 1.8 H Estim Creat Clear Calc 28.0 L eGFR 30 L BUN/Creatinine Ratio 26 H Glucose 110 H D Calculated Osmolality 288 Calcium 8.6 Corrected Calcium 9.0 Magnesium 2.1 Total Bilirubin 0.4 AST 28 ALT 30 Alkaline Phosphatase 68 Total Protein 6.4 Albumin 3.5 Globulin 2.9 Albumin/Globulin Ratio 1.2 Assessment & Plan Assessment and plan (1) ORA (acute kidney injury): Status: Acute Assessment and plan: ORA secondary to prerenal azotemia. Patient has decreased p.o. intake, on Entresto, high doses of Lasix along with Jardiance. Hold all the medications for now. Gentle IV fluids recommended. CT abdomen showed no hydronephrosis. Urine sodium less than 10. Despite BNP elevated-clinically looks dehydrated. 12/31 1 L IV fluids given. Creatinine Improved to 1.8, GFR 30. More alert and awake. Off IV fluids. Patient was started on 40 mg of p.o. Lasix.. Clinically looks euvolemic. Hopefully can be discharged tomorrow. (2) Acute UTI: Status: Acute Assessment and plan: On broad-spectrum antibiotics (3) Community acquired pneumonia: Status: Acute Assessment and plan: On antibiotics (4) Sepsis: Status: Acute Assessment and plan: on IV antibiotics. Sepsis resolved (5) Hypertension: Status: Acute Assessment and plan: Blood pressure seems to be stable. Hold off on Entresto, Lasix (6) Congestive heart failure: Status: Acute Assessment and plan: Looks euvolemic. Can restart low-dose diuretics. Plan of care discussed with primary team. Additional Assessment & Plan Additional Plan: Thank you Dr. Freed for allowing me to participate in the care of Ms. Echols
--- NOTE | 2024-01-01 14:02 | PD.RESPRO ---
Documentation for date of: 01/01/24 Subjective Subjective Interval history: Not overnight acute events This morning at the bedside, patient is AOx3, afebrile, saturating well on room air, responding questions properly, tolerating p.o. denies any acute complaints at the moment, denied chest pain, shortness of breath, dysuria, dizziness or any other associated symptom at the moment. Pertinent labs WBCs are normal limits, creatinine has been downtrending 1.8 as well as BUN 46 we will resume patient Lasix 40 mg p.o. daily. Due to patient family members have concerns about patient mobility and are asking for a possible wheelchair upon discharge we will wait for physical therapy evaluation and recommendations and if the patient remains stable we will anticipate discharge in the next 24 to 48 hours will continue p.o. antibiotics Levaquin 750 mg p.o. daily until January 09/2024. Exam Vital Signs Temp Pulse Resp BP Pulse Ox O2 Del Method O2 Flow Rate 98.4 F 60 20 146/79 H 94 L Room Air 1 01/01/24 11:49 01/01/24 12:00 01/01/24 11:49 01/01/24 11:49 01/01/24 11:49 01/01/24 11:49 01/01/24 07:50 Narrative Exam General: No acute distress, well appearing, alert, interactive, saturating well on room air HEENT: NC/AT, PERRL, EOMI, Good conjugate gaze, moist mucous membranes, oropharynx clear. Neck: Supple, No masses, No adenopathy, carotid pulse 2+ bilaterally without bruits, No JVD, normal range of motion. Chest: Symmetrical, atraumatic, and with equal expansion , Nontender on palpation no deformity and no crepitus. CVS: S1 and S2 present, Regular rate and rhythm, No murmurs, rubs or gallops perceived during auscultation. Lungs: Normal respiratory effort, minimal bilateral basal crackles perceived during auscultation, No intercostal or subcostal retraction. Abdomen : Soft, no tenderness to palpation, no guarding ,no rebound, +BS Extremities: No edema, warm well perfused, normal tone and ROM, strength and sensation intact, cap refill less than 2, +2 dp equal bilaterally, able to move all 4 extremities spontaneously. Skin: Intact, no rashes, no lesions, no erythema or jaundice noted Neuro: AOx3, cranial nerves II through XII intact, reflex symmetric and sensation normal, no focal neurologic deficits noted, GCS 15 Psych: Appropriate mood and affect Objective Labs 01/01/24 04:35 01/01/24 04:35 Labs: Laboratory Results - last 24 hr 01/01/24 04:35 WBC 7.2 RBC 3.66 L Hgb 10.9 L Hct 31.9 L MCV 87 MCH 29.8 MCHC 34.2 RDW Std Deviation 50.1 H Plt Count 199 Neut % (Auto) 58 Lymph % (Auto) 24 Snyder % (Auto) 14 H Eos % (Auto) 1 Baso % (Auto) 1 Neut # (Auto) 4.2 Lymph # (Auto) 1.8 Snyder # (Auto) 1.0 H Eos # (Auto) 0.1 Baso # (Auto) 0.1 Immature Gran # (Auto) 0.11 H Absolute Nucleated RBC 0.02 H Immature Gran % 2 H Nucleated RBC % 0 Sodium 138 Potassium 3.9 Chloride 108 H Carbon Dioxide 22.9 Anion Gap 7 BUN 46 H Creatinine 1.8 H Estim Creat Clear Calc 28.0 L eGFR 30 L BUN/Creatinine Ratio 26 H Glucose 110 H D Calculated Osmolality 288 Calcium 8.6 Corrected Calcium 9.0 Magnesium 2.1 Total Bilirubin 0.4 AST 28 ALT 30 Alkaline Phosphatase 68 Total Protein 6.4 Albumin 3.5 Globulin 2.9 Albumin/Globulin Ratio 1.2 Quality Measures Quality Measures VTE prophylaxis Advance care planning discussed with:: patient and child Assessment & Plan Assessment Current Active Medications: Generic Name Dose Route Start Last Admin Trade Name Freq PRN Reason Stop Dose Admin Acetaminophen 650 mg 12/27/23 20:22 12/30/23 04:21 Acetaminophen 325 Mg Tablet PO 01/26/24 20:21 650 mg Q6H PRN Administration Fever >101.5 Amlodipine Besylate 2.5 mg 12/31/23 09:00 01/01/24 08:44 Amlodipine Besylate 2.5 Mg Tablet PO 01/30/24 08:59 2.5 mg QDAY REED Administration Carvedilol 25 mg 12/31/23 08:05 01/01/24 08:44 Carvedilol 12.5 Mg Tablet PO 01/30/24 08:04 25 mg BIDWM REED Administration Clopidogrel Bisulfate 75 mg 12/28/23 09:00 01/01/24 08:43 Clopidogrel Bisulfate 75 Mg Tablet PO 01/27/24 08:59 75 mg QDAY REED Administration Dextrose 25 ml 12/27/23 20:25 Dextrose 50%-Water Inj 50 Ml Syringe IV 01/26/24 20:24 Q15MIN PRN BG 50-70 responsive npo pt Dextrose 50 ml 12/27/23 20:25 Dextrose 50%-Water Inj 50 Ml Syringe IV 01/26/24 20:24 Q15MIN PRN BG <50 OR BG <70 & pt unresponsive Escitalopram Oxalate 10 mg 12/31/23 09:00 01/01/24 08:43 Escitalopram Oxalate 10 Mg Tablet PO 01/30/24 08:59 10 mg QDAY REED Administration Furosemide 40 mg 01/01/24 14:00 Furosemide 40 Mg Tablet PO 01/31/24 13:59 QDAY REED Glucagon 1 mg 12/27/23 20:25 Glucagon Inj 1 Mg Vial IM Q15MIN PRN BG <70, and no IV access Heparin Sodium (Porcine) 5,000 unit 12/27/23 22:00 01/01/24 13:29 Heparin Sod Inj 5000 Unit/Ml Vial SC 01/10/24 21:59 5,000 unit Q8HR REED Administration Hydroxyzine HCl 25 mg 12/30/23 20:07 12/30/23 21:08 Hydroxyzine Hcl 25 Mg Tablet PO 01/29/24 20:06 25 mg HS PRN Administration Sleep Ceftriaxone Sodium/Dextrose 50 mls @ 100 mls/hr 12/29/23 10:54 01/01/24 08:44 Rocephin/D5w 1gm Iv Premix IV 01/05/24 10:53 100 mls/hr QDAY REED Administration Insulin Human Regular 0 unit 12/27/23 21:00 01/01/24 11:48 Insulin Hum Regular 1 Unit/0.01 Ml (Per Unit) SC 01/26/24 20:59 Not Given ACHS [facility] Protocol Pravastatin Sodium 10 mg 12/27/23 21:00 12/31/23 21:03 Pravastatin Sodium 10 Mg Tablet PO 01/26/24 20:59 10 mg HS REED Administration Sodium Bicarbonate 325 mg 12/30/23 22:00 01/01/24 13:29 Sodium Bicarbonate 650 Mg Tablet PO 01/29/24 21:59 325 mg TID REED Administration Plan Patient is a 73-year-old female with HFrEF with improved EF 40-45%, CKD stage IV, history of cardiorenal syndrome, T2DM, HTN, history of CVA, HLD who presented with encephalopathy and fever. Patient was admitted for sepsis secondary to E. coli bacteremia, UTI secondary to E. coli, & possible community-acquired pneumonia. Additionally labs were significant for ORA on CKD. #Acute encephalopathy, likely infectious from sepsis, resolved #Sepsis, secondary to #E. coli bacteremia #UTI secondary to E. coli Initial head CT was negative. Patient AAOx3 30 cc per kg bolus per sepsis protocol was not given due to HFrEF; received 500cc NS bolus and started on 1L maintenance IVF CT abdomen pelvis: Perinephric stranding and cystitis. Blood & urine cultures grew E. coli, sensitive to Rocephin ? Continue Rocephin IV ? Upon discharge patient will be discharged on Levaquin 750 mg p.o. daily until January 09 #Concern for Community-acquired pneumonia As seen on CXR DDx includes pulmonary edema - Continue Rocephin #ORA on CKD 4, improving #History of cardiorenal syndrome #Elevated uric acid #Non-anion gap metabolic acidosis, resolved Creatinine on admission was 2.7, baseline appears to be 1.9 Continue to hold home nephrotoxic medications, including Entresto, Lasix, Jardiance As patient takes Lasix at home, FEUrea was calculated and noted to be 37.3%, suggesting intrinsic cause of ORA => creatinine downtrending, 2.3 Renal ultrasound: Small right kidney, bilateral renal cortical thinning, moderate right mild left renal parenchymal scar formation. Bilateral nonobstructing renal calculi. No hydronephrosis Nephro consulted, appreciate recommendations: Can start sodium bicarbonate for metabolic acidosis Uric acid 8.2, no signs of gout noted, and patient denies any symptoms CO2 on CHEM panel 20, anion gap 7. - Continue sodium bicarb 325 mg p.o. twice daily #History of HFrEF #HTN #NSTEMI, likely type II Clinically, patient appears dry, although BNP is elevated Strict I's and O's Echo was ordered, and revealed improved EF, now 40-45%. Echo also shows mild systolic dysfunction with global hypokinesis and LVH. Stage II diastolic dysfunction. Mild RV dilatation, with normal systolic function. RVSP 57 mmHg. RV mildly dilated. Troponin mildly elevated, with delta noted. Patient denies chest pain. Likely type II secondary to infection - Will hold Entresto, Jardiance at this moment - Continue Coreg and amlodipine - Cardio consulted, appreciate recs Resume Entresto, Jardiance, Lasix on discharge - Resume Lasix 40 p.o. daily #T2DM A1c 6.2 - Continue SSI with hypoglycemic protocol in place - FBG within goal 140-180 #HLD #History of CVA - Continue home Plavix & pravastatin #Insomnia #Anxiety - Continue home Atarax and Lexapro Dispo: sepsis secondary to E. coli bacteremia and UTI; fevers resolved, antibiotics de-escalated; continue to monitor overnight and consider discharge in 24 to 48 hours after physical therapy evaluation for discharge due to family members stated that her mobility has been decreased in the last couple of weeks GI PPx: None DVT PPx: Heparin Diet: Carb consistent CODE STATUS: Full code Patient discussed with my attending Dr Lourdes Huang MD PGY-2 Disclaimer: Despite multiple revisions, due to the dictation software being used, the document bellow may not be free of grammatical errors including phonetic/typographic errors. However, this does not deter from our commitment to providing health care in the patient's best interest in mind. Attending Provider Attestation/Addendum I have discussed and was present for the essential components of the history, physical examination, diagnosis, and treatment plan with the resident. I agree with the patient's care as documented by the resident and amended herein by me. Bogdan Freed DO. Although this document has been carefully reviewed, there may still be some phonetic and other typographical errors. These errors are purely grammatical due to imperfections in the software program and should not be construed in any way to compromise the substance of the patient's medical care during this visit.
[2024-01-01] MEDS: Furosemide 40 MG TABLET PO (14:58)
[2024-01-01] MEDS: PRAVASTATIN SODIUM 10 MG TABLET PO (20:05)
[2024-01-01] MEDS: hydrOXYzine HCL 25 MG TABLET PO (20:07)
--- NOTE | 2024-01-01 23:37 | ESPR_ITS ---
Documentation for date of: 01/01/24 Subjective Subjective Interval history: Patient seen and examined at the bedside. Patient continues to slowly improve from the sepsis. No new cardiac complaints. Patient still continues to have some shortness of breath. Kidney function is back to baseline with a creatinine of 1.8 Restarted lasix at 40 mg once daily and can be uptitrated to her normal dose is 80 mg once daily previously Entresto and spironolactone are on hold for now and can be restarted slowly as outpatient after pt improves from her sepsis. Blood pressure is better controlled after increasing Coreg to 25 mg twice daily but still systolic around 140-150 mmHg. Will need to start entresto later. Exam Vital Signs Temp Pulse Resp BP Pulse Ox O2 Del Method O2 Flow Rate 98.8 F 59 L 26 H 142/71 H 95 Room Air 1 01/01/24 20:00 01/01/24 20:00 01/01/24 20:00 01/01/24 20:00 01/01/24 20:00 01/01/24 15:53 01/01/24 07:50 Narrative Exam General: Alert and oriented x3. In mild respiratory distress Eyes: Pupils are equal and reactive to light bilaterally. HEENT: Atraumatic, normocephalic. Elevated JVD. Mucosa moist. Cardiovascular: Normal S1 and S2. Tachycardic and 3/6 systolic murmur heard at the apex radiating to the axilla.. Trace bilateral pitting edema noted Respiratory: No respiratory distress. Bilateral air entry present and absent breath sounds right lower base but occasional crackles noted. Abdomen: Soft, nontender, nondistended. Skin: No rash. Warm to touch. Musculoskeletal: No gross injuries. Able to move all 4 extremities. Neuro: Alert and oriented x3. No focal neuro deficits. Psych: Normal affect and mood Objective Labs 01/01/24 04:35 01/01/24 04:35 Labs: Laboratory Results - last 24 hr 01/01/24 04:35 WBC 7.2 RBC 3.66 L Hgb 10.9 L Hct 31.9 L MCV 87 MCH 29.8 MCHC 34.2 RDW Std Deviation 50.1 H Plt Count 199 Neut % (Auto) 58 Lymph % (Auto) 24 [place] % (Auto) 14 H Eos % (Auto) 1 Baso % (Auto) 1 Neut # (Auto) 4.2 Lymph # (Auto) 1.8 [place] # (Auto) 1.0 H Eos # (Auto) 0.1 Baso # (Auto) 0.1 Immature Gran # (Auto) 0.11 H Absolute Nucleated RBC 0.02 H Immature Gran % 2 H Nucleated RBC % 0 Sodium 138 Potassium 3.9 Chloride 108 H Carbon Dioxide 22.9 Anion Gap 7 BUN 46 H Creatinine 1.8 H Estim Creat Clear Calc 28.0 L eGFR 30 L BUN/Creatinine Ratio 26 H Glucose 110 H D Calculated Osmolality 288 Calcium 8.6 Corrected Calcium 9.0 Magnesium 2.1 Total Bilirubin 0.4 AST 28 ALT 30 Alkaline Phosphatase 68 Total Protein 6.4 Albumin 3.5 Globulin 2.9 Albumin/Globulin Ratio 1.2 Assessment & Plan A&P Narrative A 72-year-old male is a 72-year-old female with a past medical history of chronic severe systolic CHF with reduced ejection fraction of 30 to 35% echo done in April 2023 now improved to 40 to 45% on the echo in December 2023, diastolic dysfunction stage II, mild RV systolic dysfunction, moderate pulmonary hypertension, moderate MR, mildly dilated ascending aorta at 3.7 cm, history of CVA, essential hypertension, diabetes mellitus type 2, hyperlipidemia, CKD stage III with a creatinine baseline of around 1.8 to 2.0, COPD secondary to chronic smoking with more than 20 pack years on intermittent oxygen presented to the emergency department for further evaluation of shortness of breath as well as lower extremity edema. 1. Acute metabolic encephalopathy secondary to sepsis from UTI 2. Sepsis secondary to E. coli bacteremia and possible pneumonia 3. UTI secondary to E. coli 4. Acute kidney injury on CKD stage III-IV with a baseline creatinine of 1.8-2.0-mostly secondary to aggressive outpatient diuresis 5. Combined systolic and diastolic congestive heart failure. Previous ejection fraction was 30 to 35% and now improved to 40 to 45% on recent echo in December 2023. Stage II diastolic dysfunction 6. Moderate pulmonary hypertension 7. Valvular heart disease with moderate MR 8. Mildly dilated ascending aorta at 3.7 cm 9. CVA 10. History of COPD secondary to chronic smoking and intermittent oxygen 11. Ex-smoker with more than [id number] smoking history quit 4 years ago 12. Essential hypertension 13. Diabetes mellitus type 2 14. Hyperlipidemia 15. History of NSTEMI previously secondary to supply/demand mismatch Patient admitted for severe sepsis secondary to E. coli bacteremia as well as a UTI and also ruling out pneumonia. IV antibiotics and patient improving slowly. Further treatment and management as per the primary team. Ultrasound of the kidneys performed which showed small right kidney as well as bilateral renal cortical thickening with moderate mild left renal plaque, scar formation and bilateral nonobstructing renal calculi. There was also evidence of possible perinephric stranding on the CT and cystitis with urinary bladder thickening. Regarding her acute kidney injury and heart failure Patient well-known to me from previous admissions and also follows up very closely with me in the clinic almost every month. Patient was being treated aggressively for her severe systolic congestive heart failure and was appropriate treatment for the heart failure with Coreg return for milligrams p.o. twice daily, Entresto 24-26 mg twice daily. Patient was on Lasix 80 mg p.o. twice daily and was aggressively diuresed and was recently changed to Lasix 80 mg once daily. Patient was also placed on Jardiance. Patient was supposed to have a follow-up echo in the office after the aggressive treatment for last 6 months for the heart failure but patient got admitted to the hospital. Patient daughter informed us of the admission. Echocardiogram performed on 12/28/2023 showed normal LV size with mild systolic dysfunction with global hypokinesis. Mild LVH stage II diastolic dysfunction EF of 40 to 45%. Mild RV dilatation with normal RV systolic function estimated RVSP of 57 mmHg. Moderate PAH. Mildly dilated. Aortic root and ascending aorta is also mildly dilated at 3.8 and 4.0 cm. There is moderate MR and TR with mild to moderate AI. Mild PI noted. EF improved from the previous echo in April 2023 which was at 30 to 35%. Recommendations: Patient was started on IV fluids for the acute kidney injury and creatinine improved from 2.8-2.0. Patient was aggressively diuresed as outpatient okay to hold off the Lasix as well as Entresto for now. Once her kidney injury improves patient should be restarted on Lasix at 80 mg once daily and Entresto at the same dose of 24-26 mg twice daily given the mortality benefit with the goal-directed medical therapy. Eventually Jardiance also needs to be restarted Patient blood pressure continues to be high and during the admission as Entresto has been stopped. And also Coreg decreased to 12.5 mg twice daily. Recommend to increase Coreg to 25 mg twice daily for now and continue with amlodipine. Patient also has moderate PAH with moderate valvular heart disease with moderate MR and TR as noted in the echo and will need adequate diuresis as outpatient. Strict input output, daily weights and 2 g sodium diet for now Keep potassium greater than 4 and magnesium greater than 2.0 at all times. Continue telemetry 01/01/2024: Patient still continues to have some shortness of breath. Kidney function is back to baseline with a creatinine of 1.8 Restarted lasix at 40 mg once daily and can be uptitrated to her normal dose is 80 mg once daily previously Entresto and spironolactone are on hold for now and can be restarted slowly as outpatient after pt improves from her sepsis. Blood pressure is better controlled after increasing Coreg to 25 mg twice daily but still systolic around 140-150 mmHg. Will need to start entresto later. Management of rest of the medical conditions as per primary team and other consultants. Thank you for the consult and allowing me to participate in the care of the patient. Cardiology will continue to follow. Dylan Wallace M.D. Interventional Cardiology Time Spent With Patient Time: Total time spent is greater than 50% in coordination of care (as documented) at patient's floor/unit and/or counseling patient:
[2024-01-02] VITALS (10 sets, daily range): BP systolic 157–176; BP diastolic 77–91; PULSE 59–70; RESP 17–32; TEMP 36.1–37.1; O2SAT 92–96
[2024-01-02] MEDS: SODIUM BICARBONATE 650 MG TABLET 325 MG PO ×2 (05:33→13:48)
[2024-01-02] MEDS: HEPARIN SOD INJ 5000 UNIT/ML VIAL SC ×2 (05:33→13:49)
[2024-01-02 06:14] LABS: Basophils # (Auto) 0.1 Thou/mm3 (0.0-0.2); Basophils % (Auto) 1 % (0-2.5); Eosinophils # (Auto) 0.1 Thou/mm3 (0.0-0.5); Eosinophils % (Auto) 1 % (0-10); Hematocrit 32.8 % (36.0-46.0); Hemoglobin 11.2 g/dL (12.0-16.0); Immature Granulocytes % (Auto) 2 % (0-0); Lymphocytes % (Auto) 23 % (10-50); Mean Corpuscular HGB Conc 34.1 g/dl (31.0-37.0); Mean Corpuscular Hemoglobin 30.3 pg (25.0-35.0); Mean Corpuscular Volume 89 fL (80-100); Monocytes # (Auto) 0.9 Thou/mm3 (0.0-0.8); Monocytes % (Auto) 10 % (0-12); Neutrophils # (Auto) 5.6 Thou/mm3 (1.8-7.7); Neutrophils % (Auto) 63 % (37-80); Nucleated Red Blood Cell # 0.02 Thou/mm3 (0.00-0.00); Nucleated Red Blood Cell % 0 /100 WBC (0); Platelet Count 302 Thou/mm3 (140-440); RDW Standard Deviation 49.8 fL (36.4-46.3); White Blood Count 8.9 Thou/mm3 (3.6-11.0)
[2024-01-02 06:36] LABS: Alanine Aminotransferase 30 U/L (10-49); Albumin, Serum 3.8 gm/dL (3.4-4.8); Albumin/Globulin Ratio 1.4 (1.2-2.2); Alkaline Phosphatase 69 U/L (46-116); Anion Gap 8 (7-16); Aspartate Amino Transferase 23 U/L (0-34); BUN/Creatinine Ratio 24 Ratio (12-20); Bilirubin,Total 0.4 mg/dL (0.3-1.2); Blood Urea Nitrogen 43 mg/dL (9-23); Calcium (Corrected) 9.2 mg/dL (8.5-10.1); Carbon Dioxide 23.2 mMol/L (20.0-31.0); Chloride 108 mMol/L (98-107); Creatinine (Component) 1.8 mg/dL (0.6-1.3); Estimated Creatinine Clearance 27.6 mL/min (>60); Globulin 2.7 gm/dL (2.3-3.5); Glucose 179 mg/dL (74-106); Magnesium 1.9 mg/dL (1.6-2.6); Osmolality,Calculated 292 (275-295); Potassium 3.9 mMol/L (3.4-5.1); Sodium 139 mMol/L (136-145); Total Protein 6.5 gm/dL (5.7-8.2); eGFR 30 See Note
[2024-01-02] MEDS: INSULIN HUM REGULAR 1 UNIT/0.01 ML (PER UNIT) SC ×2 (07:59→11:30)
--- NOTE | 2024-01-02 08:46 | CHAP ---
Patient was visited by a [facility] Spiritual Care Volunteer on 12/30/2023 between [id number] and [id number] and received comfort, encouragement and/or prayer.
--- NOTE | 2024-01-02 08:49 | PC.NURSE ---
Pt arrived to unit from tele via bed @ [id number]
[2024-01-02] MEDS: carVEDILOL 12.5 MG TABLET 25 MG PO (09:55)
[2024-01-02] MEDS: ESCITALOPRAM OXALATE 10 MG TABLET PO (09:55)
[2024-01-02] MEDS: CLOPIDOGREL BISULFATE 75 MG TABLET PO (09:55)
[2024-01-02] MEDS: amLODIPine BESYLATE 2.5 MG TABLET PO (09:56)
[2024-01-02] MEDS: cefTRIAXone/D5w 1gm IV premix 50 ML IV (09:59)
[2024-01-02] MEDS: Furosemide 40 MG TABLET PO (09:59)
[2024-01-02] MEDS: Magnesium Sulfate 2 GM Ivpb 2 GM/50 ML BAG IV (10:44)
--- NOTE | 2024-01-02 11:19 | PD.IMPROG ---
Documentation for date of: 01/02/24 Subjective Subjective Interval history: Patient seen and examined at the bedside. Patient continues to slowly improve from the sepsis. No new cardiac complaints. Patient still continues to have some shortness of breath. Kidney function is back to baseline with a creatinine of 1.8 Primary team planning to discharge the patient and is on Lasix 40 mg once daily which could be uptitrated to her normal dose of 80 mg once daily once her she gets discharged. Entresto and spironolactone are on hold for now and can be restarted slowly as outpatient after pt improves from her sepsis. Blood pressure is better controlled after increasing Coreg to 25 mg twice daily but still systolic around 140-150 mmHg. Recommend to start Entresto at the time of discharge. Patient recommended to follow-up with PCP within 7 days and later with cardiology either locally where she lives or [place]. Exam Vital Signs Temp Pulse Resp BP Pulse Ox O2 Del Method O2 Flow Rate 97.2 F 70 18 169/91 H 96 Room Air 1 01/02/24 12:00 01/02/24 12:01/02/24 12:01/02/24 12:01/02/24 12:01/02/24 12:00 01/01/24 07:50 Narrative Exam General: Alert and oriented x3. In mild respiratory distress Eyes: Pupils are equal and reactive to light bilaterally. HEENT: Atraumatic, normocephalic. Elevated JVD. Mucosa moist. Cardiovascular: Normal S1 and S2. Tachycardic and 3/6 systolic murmur heard at the apex radiating to the axilla.. Trace bilateral pitting edema noted Respiratory: No respiratory distress. Bilateral air entry present and absent breath sounds right lower base but occasional crackles noted. Abdomen: Soft, nontender, nondistended. Skin: No rash. Warm to touch. Musculoskeletal: No gross injuries. Able to move all 4 extremities. Neuro: Alert and oriented x3. No focal neuro deficits. Psych: Normal affect and mood Objective Labs 01/02/24 05:30 01/02/24 05:30 Labs: Laboratory Results - last 24 hr 01/02/24 05:30 WBC 8.9 RBC 3.70 L Hgb 11.2 L Hct 32.8 L MCV 89 MCH 30.3 MCHC 34.1 RDW Std Deviation 49.8 H Plt Count 302 D Neut % (Auto) 63 Lymph % (Auto) 23 [place] % (Auto) 10 Eos % (Auto) 1 Baso % (Auto) 1 Neut # (Auto) 5.6 Lymph # (Auto) 2.0 [place] # (Auto) 0.9 H Eos # (Auto) 0.1 Baso # (Auto) 0.1 Immature Gran # (Auto) 0.20 H Absolute Nucleated RBC 0.02 H Immature Gran % 2 H Nucleated RBC % 0 Sodium 139 Potassium 3.9 Chloride 108 H Carbon Dioxide 23.2 Anion Gap 8 BUN 43 H Creatinine 1.8 H Estim Creat Clear Calc 27.6 L eGFR 30 L BUN/Creatinine Ratio 24 H Glucose 179 H D Calculated Osmolality 292 Calcium 9.0 Corrected Calcium 9.2 Magnesium 1.9 Total Bilirubin 0.4 AST 23 ALT 30 Alkaline Phosphatase 69 Total Protein 6.5 Albumin 3.8 Globulin 2.7 Albumin/Globulin Ratio 1.4 Assessment & Plan A&P Narrative A 72-year-old male is a 72-year-old female with a past medical history of chronic severe systolic CHF with reduced ejection fraction of 30 to 35% echo done in April 2023 now improved to 40 to 45% on the echo in December 2023, diastolic dysfunction stage II, mild RV systolic dysfunction, moderate pulmonary hypertension, moderate MR, mildly dilated ascending aorta at 3.7 cm, history of CVA, essential hypertension, diabetes mellitus type 2, hyperlipidemia, CKD stage III with a creatinine baseline of around 1.8 to 2.0, COPD secondary to chronic smoking with more than 20 pack years on intermittent oxygen presented to the emergency department for further evaluation of shortness of breath as well as lower extremity edema. 1. Acute metabolic encephalopathy secondary to sepsis from UTI 2. Sepsis secondary to E. coli bacteremia and possible pneumonia 3. UTI secondary to E. coli 4. Acute kidney injury on CKD stage III-IV with a baseline creatinine of 1.8-2.0-mostly secondary to aggressive outpatient diuresis 5. Combined systolic and diastolic congestive heart failure. Previous ejection fraction was 30 to 35% and now improved to 40 to 45% on recent echo in December 2023. Stage II diastolic dysfunction 6. Moderate pulmonary hypertension 7. Valvular heart disease with moderate MR 8. Mildly dilated ascending aorta at 3.7 cm 9. CVA 10. History of COPD secondary to chronic smoking and intermittent oxygen 11. Ex-smoker with more than [id number] smoking history quit 4 years ago 12. Essential hypertension 13. Diabetes mellitus type 2 14. Hyperlipidemia 15. History of NSTEMI previously secondary to supply/demand mismatch Patient admitted for severe sepsis secondary to E. coli bacteremia as well as a UTI and also ruling out pneumonia. IV antibiotics and patient improving slowly. Further treatment and management as per the primary team. Ultrasound of the kidneys performed which showed small right kidney as well as bilateral renal cortical thickening with moderate mild left renal plaque, scar formation and bilateral nonobstructing renal calculi. There was also evidence of possible perinephric stranding on the CT and cystitis with urinary bladder thickening. Regarding her acute kidney injury and heart failure Patient well-known to me from previous admissions and also follows up very closely with me in the clinic almost every month. Patient was being treated aggressively for her severe systolic congestive heart failure and was appropriate treatment for the heart failure with Coreg return for milligrams p.o. twice daily, Entresto 24-26 mg twice daily. Patient was on Lasix 80 mg p.o. twice daily and was aggressively diuresed and was recently changed to Lasix 80 mg once daily. Patient was also placed on Jardiance. Patient was supposed to have a follow-up echo in the office after the aggressive treatment for last 6 months for the heart failure but patient got admitted to the hospital. Patient daughter informed us of the admission. Echocardiogram performed on 12/28/2023 showed normal LV size with mild systolic dysfunction with global hypokinesis. Mild LVH stage II diastolic dysfunction EF of 40 to 45%. Mild RV dilatation with normal RV systolic function estimated RVSP of 57 mmHg. Moderate PAH. Mildly dilated. Aortic root and ascending aorta is also mildly dilated at 3.8 and 4.0 cm. There is moderate MR and TR with mild to moderate AI. Mild PI noted. EF improved from the previous echo in April 2023 which was at 30 to 35%. Recommendations: Patient was started on IV fluids for the acute kidney injury and creatinine improved from 2.8-2.0. Patient was aggressively diuresed as outpatient okay to hold off the Lasix as well as Entresto for now. Once her kidney injury improves patient should be restarted on Lasix at 80 mg once daily and Entresto at the same dose of 24-26 mg twice daily given the mortality benefit with the goal-directed medical therapy. Eventually Jardiance also needs to be restarted Patient blood pressure continues to be high and during the admission as Entresto has been stopped. And also Coreg decreased to 12.5 mg twice daily. Recommend to increase Coreg to 25 mg twice daily for now and continue with amlodipine. Patient also has moderate PAH with moderate valvular heart disease with moderate MR and TR as noted in the echo and will need adequate diuresis as outpatient. Strict input output, daily weights and 2 g sodium diet for now Keep potassium greater than 4 and magnesium greater than 2.0 at all times. Continue telemetry 01/02/2024 Patient still continues to have some shortness of breath. Kidney function is back to baseline with a creatinine of 1.8 Primary team planning to discharge the patient and is on Lasix 40 mg once daily which could be uptitrated to her normal dose of 80 mg once daily once her she gets discharged. Entresto and spironolactone are on hold for now and can be restarted slowly as outpatient after pt improves from her sepsis. Blood pressure is better controlled after increasing Coreg to 25 mg twice daily but still systolic around 140-150 mmHg. Recommend to start Entresto at the time of discharge. Patient recommended to follow-up with PCP within 7 days and later with cardiology either locally where she lives or [place]. Management of rest of the medical conditions as per primary team and other consultants. Thank you for the consult and allowing me to participate in the care of the patient. Cardiology will continue to follow. Dylan Wallace M.D. Interventional Cardiology Time Spent With Patient Time: Total time spent is greater than 50% in coordination of care (as documented) at patient's floor/unit and/or counseling patient:
--- NOTE | 2024-01-02 14:40 | PC.SS ---
[employer] informed by bedside nurse that PT evaluation has been completed. [employer] submitted PT note to DME vendor. DME request for wheelchair.
--- NOTE | 2024-01-02 15:05 | PD.RESDS ---
Planned Discharge Date 01/02/24 DS: Providers Provider Date of admission: 12/27/23 20:22 Primary care physician: Collins Bender Admitting Provider: Gurvinder Morris MD Attending Provider on Admission: Anish Freed DO Consults: 12/27/23 23:10 Referral Smoking Cessation Counseling Routine Comment: Smoking Cessation Education Needed 12/28/23 05:00 Consult to Nephrology Stat Comment: Consulting Provider: Asif Al 12/30/23 09:29 Referral Physical Therapy Routine Comment: Physician Instructions: 12/31/23 14:50 Consult to Cardiology Routine Comment: Consulting Provider: Dylan Wallace 01/01/24 16:29 Referral Physical Therapy Stat Comment: Physician Instructions: Attending Provider on DC: Crystal Garcia MD Discharging Provider: Crystal Garcia MD DS: Diagnosis Problem List Completed Was Problem List Reviewed/Reconciled?: Yes Hospital Course Hospital Course Hospital course: Patient is a 73-year-old female with HFrEF with improved EF 40-45%, CKD stage IV, history of cardiorenal syndrome, T2DM, HTN, history of CVA, HLD who presented with encephalopathy and fever. Patient was admitted for sepsis secondary to E. coli bacteremia, UTI secondary to E. coli, & possible community-acquired pneumonia. Additionally labs were significant for ORA on CKD.Over the course of hospital stay, Initial head CT was negative. Patient AAOx3,30 cc per kg bolus per sepsis protocol was not given due to HFrEF; received 500cc NS bolus and started on 1L maintenance IVF. CT abdomen pelvis showed Perinephric stranding and cystitis. Blood & urine cultures grew E. coli, sensitive to Rocephin. She received Rocephin and will continue with Levaquin 750 p.o. daily till January 09. As patient takes Lasix at home, FEUrea was calculated and noted to be 37.3%, suggesting intrinsic cause of ORA ,creatinine downtrending to 1.8, Renal ultrasound: Small right kidney, bilateral renal cortical thinning, moderate right mild left renal parenchymal scar formation. Bilateral nonobstructing renal calculi. No hydronephrosis. nephro was consulted and recommended to hold home nephrotoxic medications, including Entresto, Lasix, Jardiance( untill follows cardiology outpatient) Echo was ordered, and revealed improved EF, now 40-45%. Echo also shows mild systolic dysfunction with global hypokinesis and LVH. Stage II diastolic dysfunction. Mild RV dilatation, with normal systolic function. RVSP 57 mmHg. RV mildly dilated.Troponin mildly elevated, with delta noted. Patient denies chest pain. Likely type II secondary to infection. Today patient is stable on vitals, physical examination generally unremarkable. Continue Levaquin untill January 09. Hold home Entresto, Jardiance and spironolactone until follow-up cardiology outpatient. Follow-up with PCP 1 to 2-week after discharge. #Acute encephalopathy, likely infectious from sepsis, resolved #Sepsis, secondary to #E. coli bacteremia #UTI secondary to E. coli - continue with Levaquin 750 p.o. daily till January 09. #Concern for Community-acquired pneumonia - covered with antibiotics #ORA on CKD 4, improving #History of cardiorenal syndrome #Elevated uric acid #Non-anion gap metabolic acidosis, resolved -Continue to hold home nephrotoxic medications, including Entresto, spironolactone, Jardiance( untill follow up outpatient with cardiology) - Continue sodium bicarb 325 mg p.o. twice daily #History of HFrEF #HTN #NSTEMI, likely type II - Will hold Entresto, Jardiance , spironolactone at this moment - Continue Coreg and amlodipine and lasix #T2DM A1c 6.2 #HLD #History of CVA - Continue home Plavix & pravastatin #Insomnia #Anxiety - Continue home Atarax and Lexapro Discussed the patient with my attending Dr Freed, Crystal Garcia MD,PGY-2 Time Spent with Patient Time attestation: Total time spent providing and/or coordinating discharge services:>30 min Exam Vital Signs Temp Pulse Resp BP Pulse Ox O2 Del Method O2 Flow Rate 97.2 F 70 18 169/91 H 96 Room Air 1 01/02/24 12:01/02/24 12:01/02/24 12:01/02/24 12:01/02/24 12:01/02/24 12:01/01/24 07:50 Narrative Exam General: No acute distress, well appearing, alert, interactive, saturating well on room air HEENT: NC/AT, PERRL, EOMI, Good conjugate gaze, moist mucous membranes, oropharynx clear. Neck: Supple, No masses, No adenopathy, carotid pulse 2+ bilaterally without bruits, No JVD, normal range of motion. Chest: Symmetrical, atraumatic, and with equal expansion , Nontender on palpation no deformity and no crepitus. CVS: S1 and S2 present, Regular rate and rhythm, No murmurs, rubs or gallops perceived during auscultation. Lungs: Normal respiratory effort, minimal bilateral basal crackles perceived during auscultation, No intercostal or subcostal retraction. Abdomen : Soft, no tenderness to palpation, no guarding ,no rebound, +BS Extremities: No edema, warm well perfused, normal tone and ROM, strength and sensation intact, cap refill less than 2, +2 dp equal bilaterally, able to move all 4 extremities spontaneously. Skin: Intact, no rashes, no lesions, no erythema or jaundice noted Neuro: AOx3, cranial nerves II through XII intact, reflex symmetric and sensation normal, no focal neurologic deficits noted, GCS 15 Psych: Appropriate mood and affect Discharge Plan Plan Patient Disposition: HOME (Self Care) Patient condition on transfer: Stable Prescriptions/Referrals Prescriptions/Med Rec: New furosemide 40 mg Tablet 40 mg PO QDAY 30 Days Qty: 30 0RF sodium bicarbonate 650 mg Tablet 325 mg PO TID 30 Days Qty: 45 0RF levofloxacin 750 mg tablet 750 mg PO QDAY 8 Days Qty: 8 0RF Continued hydroxyzine HCl 25 mg tablet 25 mg PO HS PRN (Reason: Sleep) escitalopram oxalate 10 mg tablet 10 mg PO QDAY pravastatin 20 mg tablet 20 mg PO QDAY clopidogrel 75 mg tablet 75 mg PO QDAY carvedilol 25 mg Tablet 25 mg PO BID Rx Instructions: must administer with a meal/food amlodipine 2.5 mg Tablet 2.5 mg PO QDAY Held Jardiance 25 mg tablet 25 mg PO QDAY Hold Instructions: Resume on 01/09/24. hold until folow up with cardiology Entresto 24-26 mg tablet 24 - 26 tab PO BID Hold Instructions: Resume on 01/09/24. hold until folow up with cardiology Patient Comments: TAKE 1 TABLET BY MOUTH TWICE A DAY FOR ONE MONTH Discontinued furosemide 80 mg Tablet 80 mg PO QDAY Referrals: Dylan Wallace MD [Physician] - Collins Bender [Primary Care Provider] - Asif Al MD [Physician] - Patient/Caregiver Discharge Instructions Meds to Beds: No Discharge Activity: as per physical therapy and activity as tolerated Other Discharge Activity Instructions:: continue complete dose of antibiotics hold entresto and spironolactone untill you see cardiology follow cardiology, nephrology and primary care provider within 1 week of discharge Education Materials: Anatomy of the Female Urinary Tract, Heart Failure Print Language: Finnish Stand Alone Forms: [employer] Award Info., Patient Portal Info Letter Discharge Order Discharge Orders: Discharge (Routine); Ordered 01/02/24 Ordered By: Crystal Garcia Quality Discharge Quality Measures VTE prophylaxis MD Attestestation MD Attestation I have discussed and was present for the essential components of the discharge history, physical examination, diagnosis, and discharge treatment plan with the resident. I agree with the patient's discharge care as documented by the resident and amended herein by me. Bogdan Freed, . The patient understood all discharge instructions, all questions were answered satisfactorily. The patient was instructed to return to the Emergency Department is symptoms worsened or persisted. Although this document has been carefully reviewed, there may still be some phonetic and other typographical errors. These errors are purely grammatical due to imperfections in the software program and should not be construed in any way to compromise the substance of the patient's medical care during this visit.
== END 2024-01-02 16:50 | disposition home or self-care (01) | DRG 871 ==
LOC: SERX 20:17 → SERHOLD 21:52 → S2NX 22:50 → S3SX 01-02 08:29
PROVIDERS: Internal Medicine; Nurse Practitioner Primary Care; Student in an Organized Health Care Education/Training Program; Admitting Provider Internal Medicine; Emergency Provider Emergency Medicine; PCP Internal Medicine; Visit Provider Student in an Organized Health Care Education/Training Program
DX: A41.51 Sepsis due to Escherichia coli [E. coli] (principal); G92.8 Other toxic encephalopathy; I21.A1 Myocardial infarction type 2; J18.9 Pneumonia, unspecified organism; I13.0 Hypertensive heart and chronic kidney disease with heart failure and stage 1 through stage 4 chronic kidney disease, or unspecified chronic kidney disease; N17.9 Acute kidney failure, unspecified; J44.0 Chronic obstructive pulmonary disease with (acute) lower respiratory infection; N18.4 Chronic kidney disease, stage 4 (severe); I50.42 Chronic combined systolic (congestive) and diastolic (congestive) heart failure; E87.20 Acidosis, unspecified; E87.1 Hypo-osmolality and hyponatremia; E11.22 Type 2 diabetes mellitus with diabetic chronic kidney disease; F41.9 Anxiety disorder, unspecified; G47.00 Insomnia, unspecified; E78.5 Hyperlipidemia, unspecified; E87.6 Hypokalemia; I45.10 Unspecified right bundle-branch block; N20.0 Calculus of kidney; I27.20 Pulmonary hypertension, unspecified; I77.819 Aortic ectasia, unspecified site; R65.20 Severe sepsis without septic shock; N27.0 Small kidney, unilateral; I25.2 Old myocardial infarction; Z79.02 Long term (current) use of antithrombotics/antiplatelets; Z86.73 Personal history of transient ischemic attack (TIA), and cerebral infarction without residual deficits; Z87.891 Personal history of nicotine dependence; N30.90 Cystitis, unspecified without hematuria; Z79.899 Other long term (current) drug therapy
CPT/HCPCS: 36415; 70450; 71045; 74176; 76705; 76770; 80048; 80053; 80076; 81001; 82436; 82570; 83036; 83605; 83690; 83735; 83880; 83970; 84133; 84145; 84300; 84484; 84540; 84550; 85025; 85610; 87040; 87077; 87081; 87086; 87186; 87400; 87635; 87811; 93005; 93306; 97162; 99285; J0456; J0692; J0696; J1643; J1815; J3475; J3490; J7030; J7040; J7050; A9270; J1644